=== PATIENT | male | born 1945 | race Caucasian/White ===

== ENCOUNTER 2020-11-04 08:09 | Inpatient (IN) | payer OTHER ==
[~2020-11-04] VITALS: Ht 175.3 cm; Wt 99.4 kg
[~2020-11-04 08:09] MED LIST: FINA5TAB4 PO; IBUP400T22 PO; TAMS0.4C36 PO
[2020-11-04] MEDS ORDERED: PREGABALIN CAPSULE 75 MG CAP PO ONE (08:30)
[2020-11-04] MEDS ORDERED: ACETAMINOPHEN IV 1000 MG/100ML (10MG/ML) IV ONE (08:30)
[2020-11-04] MEDS ORDERED: CELECOXIB 100 MG CAP PO ONE (08:30)
[2020-11-04] MEDS ORDERED: MIDAZOLAM HCL 2MG/2ML 2ml VIAL (1mg/ml) ONE (08:55)
[2020-11-04] MEDS ORDERED: MORPHINE SULF PF 2 MG/2 ML SYRG ONE (08:55)
[2020-11-04] MEDS ORDERED: fentaNYL CITRATE 100 MCG/2 ML VL ONE (08:55)
[2020-11-04] MEDS ORDERED: LIDOCAINE 2% (LOCAL ANESTH.) PF 5ml SDV ONE (08:56)
[2020-11-04] MEDS ORDERED: GLYCOPYRROLATE 0.2 MG/ML 1ML VIAL ONE (08:56)
[2020-11-04] MEDS ORDERED: ONDANSETRON HCL 4 MG/2 ML VIAL ONE (08:56)
[2020-11-04] MEDS ORDERED: PROPOFOL 10 MG/ML 20 ML IV ONE (08:56)
[2020-11-04] MEDS ORDERED: ceFAZolin 1GM/50ML 100 ML IV ONE (09:05)
[2020-11-04] MEDS ORDERED: TRANEXAMIC ACID 20 ML ONE (10:29)
[2020-11-04] MEDS ORDERED: BUPIVACAINE 0.25% INJ 50ML VIAL ONE (10:29)
[2020-11-04] MEDS ORDERED: KETOROLAC TROMETH 30 MG/ML 1ML VIAL ONE (10:31)
[2020-11-04] MEDS ORDERED: VANCOMYCIN HCL 1000 MG VL ONE (10:31)
[2020-11-04] MEDS ORDERED: FAMOTIDINE (10MG/ML) 2ML VL IV ONE (10:45)
[2020-11-04] MEDS ORDERED: TETRACAINE 1% INJ 2 ML VIAL IJ ONE (10:45)
[2020-11-04] MEDS ORDERED: KETAMINE HCL 10 ML ONE (11:31)
[2020-11-04] MEDS ORDERED: MORPHINE SULFATE INJECTION 2 MG/ML SYRG IV PRN (12:45)
[2020-11-04] MEDS ORDERED: NITROGLYCERIN 0.4 MG SL TAB SL PRN (12:45)
[2020-11-04] MEDS ORDERED: HYDROmorphone HCL 2 MG/ML VL IV PRN ×2 (12:45)
[2020-11-04] MEDS ORDERED: ONDANSETRON HCL 4 MG/2 ML VIAL IV PRN ×3 (12:45→13:15)
[2020-11-04] MEDS ORDERED: LACTATED RINGER'S 1,000 ML IV SCH (12:45)
[2020-11-04] MEDS ORDERED: OXYCODONE W/ ACETAMINOPHEN 5/325MG TABLET PO PRN (12:45)
[2020-11-04] MEDS ORDERED: NALOXONE HCL 0.4 MG/ML VIAL IV PRN (13:15)
[2020-11-04] MEDS ORDERED: KETOROLAC TROMETH 30 MG/ML 1ML VIAL IV ONE (13:15)
[2020-11-04] MEDS ORDERED: KETOROLAC TROMETH 30 MG/ML 1ML VIAL IV PRN (13:15)
[2020-11-04] MEDS ORDERED: DexAMETHasone SOD PHOS 10MG/1ML VIAL INJ IV PRN (13:15)
[2020-11-04] MEDS ORDERED: diphenhdrAMINE HCL 50 MG/1 ML VL IV PRN (13:15)
[2020-11-04] MEDS ORDERED: KETOROLAC TROMETH 30 MG/ML 1ML VIAL IV SCH (18:00)
[2020-11-04] MEDS: ceFAZolin 1GM/50ML 50 ML IV SCH (18:45)
[2020-11-04] MEDS: DOCUSATE SOD 100 MG CAP PO SCH ×2 (21:49→21:53)
[2020-11-04] MEDS: TAMSULOSIN HYDROCHLORIDE 0.4 MG CAP PO SCH (21:49)
[2020-11-04 22:00] VITALS: BP 108/66
[2020-11-05] VITALS (15 sets, daily range): BP systolic 90–122; BP diastolic 53–78
[2020-11-05 06:31] LABS: Hematocrit 36.8 % (41.0-53.0); Hemoglobin 13.2 g/dL (13.5-17.5)
[2020-11-05 06:43] LABS: Potassium 4.8 mmol/L (3.5-5.1)
[2020-11-05 07:00] LABS: Albumin 3.2 g/dL (3.4-5.0); BUN/Creatinine Ratio 17.2; Bilirubin, Total 0.9 mg/dL (0.2-1.0); Calcium 8.5 mg/dL (8.5-10.1); Total Protein 6.5 g/dL (6.4-8.2)
[2020-11-05] MEDS ORDERED: ceFAZolin 1GM/50ML 50 ML IV SCH (09:45)
[2020-11-05] MEDS: DOCUSATE SOD 100 MG CAP PO SCH ×2 (09:52→21:39)
[2020-11-05] MEDS: ENOXAPARIN SOD 40 MG/0.4 ML SYRINGE SC SCH (09:52)
[2020-11-05] MEDS: ceFAZolin 1GM/50ML 50 ML IV SCH ×5 (09:53→23:42)
[2020-11-05] MEDS: FINASTERIDE 5 MG TAB PO SCH (17:09)
[2020-11-05] MEDS: TAMSULOSIN HYDROCHLORIDE 0.4 MG CAP PO SCH (21:39)
[2020-11-05] MEDS: KETOROLAC TROMETH 30 MG/ML 1ML VIAL IV PRN (23:42)
[2020-11-06 05:00] VITALS: BP 132/78
[2020-11-06 07:38] LABS: Hematocrit 35.6 % (41.0-53.0); Hemoglobin 12.3 g/dL (13.5-17.5)
[2020-11-06 09:00] VITALS: BP 130/67
[2020-11-06] MEDS: DOCUSATE SOD 100 MG CAP PO SCH (09:40)
[2020-11-06] MEDS: FINASTERIDE 5 MG TAB PO SCH (09:40)
[2020-11-06] MEDS: ENOXAPARIN SOD 40 MG/0.4 ML SYRINGE SC SCH (09:41)
[2020-11-06] MEDS: KETOROLAC TROMETH 30 MG/ML 1ML VIAL IV PRN (09:46)
[2020-11-06 13:00] VITALS: BP 120/73
[2020-11-06 13:38] VITALS: BP 120/73
[2020-11-06] MEDS ORDERED: OXYCODONE W/ ACETAMINOPHEN 5/325MG TABLET PO ONE (15:15)
== END 2020-11-06 15:50 | disposition home health service (06) | DRG 470 ==
LOC: SUR 08:09 → TELE 12:37 → TELE-EAST 18:41
PROVIDERS: ADMIT Orthopaedic Surgery Adult Reconstructive Orthopaedic Surgery; ATTEND Orthopaedic Surgery Adult Reconstructive Orthopaedic Surgery
PROC: 3E0T3BZ Introduction of Anesthetic Agent into Peripheral Nerves and Plexi, Percutaneous Approach (ICD-10-PCS; 2020-11-04)
PROC: 8E0YXBZ Computer Assisted Procedure of Lower Extremity (ICD-10-PCS; 2020-11-04)
PROC: 0SRD0J9 Replacement of Left Knee Joint with Synthetic Substitute, Cemented, Open Approach (ICD-10-PCS; principal; 2020-11-04 10:51)
DX: M17.12 Unilateral primary osteoarthritis, left knee (principal); E66.01 Morbid (severe) obesity due to excess calories; Z68.32 Body mass index [BMI] 32.0-32.9, adult; N40.0 Benign prostatic hyperplasia without lower urinary tract symptoms
CPT/HCPCS: 36415; 73562; 80053; 85014; 85018; 86850; 86900; 86901; 97110; 97116; 97530; C1713; G0378; J0131; J0690; J1885; J2001; J2250; J2405; J2704; J3490

== ENCOUNTER 2021-03-31 08:02 | Inpatient (IN) | payer OTHER ==
[2021-03-31] VITALS (7 sets, daily range): BP systolic 103–128; BP diastolic 62–73
[~2021-03-31] VITALS: Ht 175.3 cm; Wt 112.4 kg
[2021-03-31] MEDS: CELECOXIB 100 MG CAP ONE ×2 (08:25→08:30)
[2021-03-31] MEDS: PREGABALIN CAPSULE 75 MG CAP ONE ×2 (08:26→08:30)
[2021-03-31] MEDS ORDERED: ceFAZolin 1GM/50ML 100 ML IV ONE (08:26)
[2021-03-31] MEDS ORDERED: ACETAMINOPHEN IV 100 ML IV ONE (08:26)
[2021-03-31] MEDS ORDERED: TRANEXAMIC ACID 20 ML ONE (08:30)
[2021-03-31] MEDS: BUPIVACAINE 0.5% MPF INJ 30ML SDV IJ ONE ×2 (08:30→11:15)
[2021-03-31] MEDS: EPINEPHrine HCL 1 MG/1 ML AMP ONE ×2 (08:30→11:15)
[2021-03-31] MEDS: VANCOMYCIN HCL 1000 MG VL ONE ×2 (08:33→11:20)
[2021-03-31] MEDS: KETOROLAC TROMETH 60MG/2ML VIAL ONE ×2 (08:33→11:15)
[2021-03-31] MEDS ORDERED: FAMOTIDINE (10MG/ML) 2ML VL IV ONE (09:38)
[2021-03-31] MEDS ORDERED: BUPIVACAINE 0.5% P/F INJ 10 ML VIAL ONE (09:38)
[2021-03-31] MEDS ORDERED: MORPHINE SULF PF 2 MG/2 ML SYRG ONE (09:40)
[2021-03-31] MEDS ORDERED: MIDAZOLAM HCL 2MG/2ML 2ml VIAL (1mg/ml) ONE (09:41)
[2021-03-31] MEDS ORDERED: ONDANSETRON HCL 4 MG/2 ML VIAL ONE (09:41)
[2021-03-31] MEDS ORDERED: ePHEDrine SULFATE 50 MG/ML AMP ONE (09:41)
[2021-03-31] MEDS ORDERED: PHENYLEPHRINE HCL 10 MG/ML VL ONE (09:41)
[2021-03-31] MEDS ORDERED: KETAMINE HCL 10 ML ONE (09:41)
[2021-03-31] MEDS ORDERED: PROPOFOL 10 MG/ML 20 ML IV ONE (09:41)
[2021-03-31] MEDS ORDERED: fentaNYL CITRATE 100 MCG/2 ML VL ONE (09:41)
[2021-03-31] MEDS ORDERED: GLYCOPYRROLATE 0.2 MG/ML 1ML VIAL ONE (09:41)
[2021-03-31] MEDS: LACTATED RINGER'S 1,000 ML IV SCH (11:45)
[2021-03-31] MEDS ORDERED: HYDROmorphone HCL 2 MG/ML VL IV PRN (11:45)
[2021-03-31] MEDS ORDERED: ceFAZolin 1GM/50ML 50 ML IV SCH (11:45)
[2021-03-31] MEDS ORDERED: ONDANSETRON HCL 4 MG/2 ML VIAL IV PRN ×3 (11:45→12:00)
[2021-03-31] MEDS ORDERED: NITROGLYCERIN 0.4 MG SL TAB SL PRN (11:45)
[2021-03-31] MEDS ORDERED: MORPHINE SULFATE INJECTION 2 MG/ML SYRG IV PRN (11:45)
[2021-03-31] MEDS ORDERED: traMADol HCL 50 MG TAB PO PRN (11:45)
[2021-03-31] MEDS ORDERED: DexAMETHasone SOD PHOS 10MG/1ML VIAL INJ IV PRN (12:00)
[2021-03-31] MEDS ORDERED: KETOROLAC TROMETH 30 MG/ML 1ML VIAL IV SCH (12:00)
[2021-03-31] MEDS ORDERED: NALOXONE HCL 0.4 MG/ML VIAL IV PRN (12:00)
[2021-03-31] MEDS ORDERED: KETOROLAC TROMETH 30 MG/ML 1ML VIAL IV PRN (12:00)
[2021-03-31] MEDS ORDERED: diphenhdrAMINE HCL 50 MG/1 ML VL IV PRN (12:00)
[2021-03-31] MEDS: SODIUM CHLOR 0.9% PF (SALINE LOCK) 10ML VIAL/SYR IV SCH ×2 (14:00→22:14)
[2021-03-31] MEDS: ceFAZolin 1GM/50ML 50 ML IV SCH ×2 (15:15→21:33)
[2021-03-31] MEDS: DOCUSATE SOD 100 MG CAP PO SCH (22:15)
[2021-03-31] MEDS: TAMSULOSIN HYDROCHLORIDE 0.4 MG CAP PO SCH (22:15)
[2021-04-01] VITALS (15 sets, daily range): BP systolic 92–127; BP diastolic 60–81
[2021-04-01] MEDS: LACTATED RINGER'S 1,000 ML IV SCH (03:02)
[2021-04-01] MEDS: ceFAZolin 1GM/50ML 50 ML IV SCH (03:02)
[2021-04-01 06:40] LABS: Hematocrit 39.6 % (41.0-53.0)
[2021-04-01 06:56] LABS: Potassium 4.5 mmol/L (3.5-5.1)
[2021-04-01] MEDS: SODIUM CHLOR 0.9% PF (SALINE LOCK) 10ML VIAL/SYR IV SCH ×3 (06:56→21:34)
[2021-04-01 06:57] LABS: Albumin 2.9 g/dL (3.4-5.0); Calcium 8.3 mg/dL (8.5-10.1)
[2021-04-01 07:01] LABS: BUN/Creatinine Ratio 13.4; Bilirubin, Total 0.6 mg/dL (0.2-1.0); Total Protein 5.7 g/dL (6.4-8.2)
[2021-04-01] MEDS: DOCUSATE SOD 100 MG CAP PO SCH ×2 (08:46→21:32)
[2021-04-01] MEDS: PANTOPRAZOLE 40 MG TAB PO SCH (08:46)
[2021-04-01] MEDS: ENOXAPARIN SOD 40 MG/0.4 ML SYRINGE SC SCH (08:47)
[2021-04-01] MEDS: OXYCODONE W/ ACETAMINOPHEN 5/325MG TABLET PO PRN ×2 (13:39→21:32)
[2021-04-01] MEDS ORDERED: TAMSULOSIN HYDROCHLORIDE 0.4 MG CAP PO SCH (18:00)
[2021-04-01] MEDS: TAMSULOSIN HYDROCHLORIDE 0.4 MG CAP PO SCH (21:33)
[2021-04-02 01:45] VITALS: BP 118/88
[2021-04-02] MEDS: OXYCODONE W/ ACETAMINOPHEN 5/325MG TABLET PO PRN ×3 (03:33→12:51)
[2021-04-02 05:39] VITALS: BP 117/76
[2021-04-02] MEDS: SODIUM CHLOR 0.9% PF (SALINE LOCK) 10ML VIAL/SYR IV SCH (06:20)
[2021-04-02 07:34] LABS: Hematocrit 39.1 % (41.0-53.0)
[2021-04-02 08:00] VITALS: BP 131/72
[2021-04-02] MEDS: DOCUSATE SOD 100 MG CAP PO SCH (08:48)
[2021-04-02] MEDS: ENOXAPARIN SOD 40 MG/0.4 ML SYRINGE SC SCH (08:49)
[2021-04-02] MEDS: PANTOPRAZOLE 40 MG TAB PO SCH (08:49)
[2021-04-02 09:00] VITALS: BP 117/72
[2021-04-02] MEDS ORDERED: FINASTERIDE 5 MG TAB PO SCH (10:00)
[2021-04-02 10:46] VITALS: BP 117/72
[2021-04-02 13:00] VITALS: BP 121/69
== END 2021-04-02 13:06 | disposition home health service (06) | DRG 470 ==
LOC: SUR 08:02 → OVERFLOW 11:35 → TELE-WESTW 17:35
PROVIDERS: ADMIT Orthopaedic Surgery Adult Reconstructive Orthopaedic Surgery; ATTEND Orthopaedic Surgery Adult Reconstructive Orthopaedic Surgery
PROC: 8E0YXBZ Computer Assisted Procedure of Lower Extremity (ICD-10-PCS; 2021-03-31)
PROC: 0SRC069 Replacement of Right Knee Joint with Oxidized Zirconium on Polyethylene Synthetic Substitute, Cemented, Open Approach (ICD-10-PCS; principal; 2021-03-31 09:40)
DX: M17.11 Unilateral primary osteoarthritis, right knee (principal); E66.01 Morbid (severe) obesity due to excess calories; N40.0 Benign prostatic hyperplasia without lower urinary tract symptoms; R00.1 Bradycardia, unspecified; Z68.30 Body mass index [BMI] 30.0-30.9, adult
CPT/HCPCS: 36415; 73562; 80053; 85014; 85018; 86850; 86900; 86901; 97116; 97163; 97530; G0378; J0131; J0171; J0690; J1885; J2250; J2405; J2704; J3490

== ENCOUNTER 2023-04-26 11:55 | Emergency (ER) | payer OTHER ==
[~2023-04-26] VITALS: Ht 175.3 cm; Wt 96.8 kg
[~2023-04-26 11:55] MED LIST changes: +IBUP-1453 PO; -IBUP400T22 PO
[2023-04-26 12:50] LABS: Basophils # (auto) 0.1 10 ^3/uL (0-0.2); Basophils % (auto) 0.8 % (0.0-2.0); Eosinophils # (auto) 0.3 10 ^3/uL (0-0.8); Eosinophils % (auto) 5.2 % (0.0-7.0); Hematocrit 39.6 % (41.0-53.0); Hemoglobin 13.4 g/dL (13.5-17.5); Lymphocytes # (auto) 1.4 10 ^3/uL (0.4-5.4); Lymphocytes % (auto) 21.6 % (10.0-50.0); Mean Corpuscular Hgb Conc. 33.8 g/dL (32.0-36.0); Mean Corpuscular Volume 94.5 fL (80.0-100.0); Monocytes # (auto) 0.6 10 ^3/uL (0-1.3); Monocytes % (auto) 9.1 % (0.0-12.0); Neutrophils # (auto) 4.2 10 ^3/uL (1.6-8.6); Neutrophils % (auto) 63.3 % (37.0-80.0); Nucleated Red Blood Cells % 0.1 %; Red Blood Cells 4.19 10^6/uL (4.5-5.90); Red Cell Distribution Width 13.4 % (11.8-14.3); White Blood Cell 6.6 10^3/uL (4.4-10.8)
[2023-04-26 13:05] LABS: INR 1.03 (0.9-1.15); Partial Thromboplastin Time 27.6 SEC (24.5-34.5); Prothrombin Time 10.8 sec (9.3-11.8)
[2023-04-26 13:06] LABS: Alanine Aminotransferase 20 U/L (7-40); Albumin 4.6 g/dL (3.2-4.8); Alkaline Phosphatase 138 U/L (46-116); Anion Gap 7 (5-15); Aspartate Aminotransferase 21 U/L (13-40); BUN/Creatinine Ratio 11.2 (10.0-20.0); Blood Urea Nitrogen 11 mg/dL (9-23); Carbon Dioxide 27 mmol/L (20-30); Chloride 106 mmol/L (98-107); Glucose 96 mg/dL (74-106); Potassium 4.2 mmol/L (3.5-5.1); Sodium 140 mmol/L (136-145); Total Protein 7.5 g/dL (5.7-8.2)
[2023-04-26] MEDS ORDERED: ENOXAPARIN SOD 100 MG/1 ML SYRINGE SC ONE (16:15)
[2023-04-26] MEDS ORDERED: IOHEXOL 350 MG/ML 100ML IJ ONE (17:27)
[2023-04-26] MEDS ORDERED: APIX5TAB PO (19:43)
[2023-04-26] MEDS ORDERED: HYDR-4902 PO (19:43)
[2023-04-26 20:10] VITALS: BP 135/92; PULSE 75; RESP 18; TEMP 97.8; O2SAT 98
== END 2023-04-26 20:58 | disposition home or self-care (01) ==
LOC: ER 11:55
DX: I82.401 Acute embolism and thrombosis of unspecified deep veins of right lower extremity (principal)
CPT/HCPCS: 36415; 71275; 80053; 85025; 85610; 85730; 93971; 96372; 99285; J1650; Q9967

== ENCOUNTER 2024-08-01 12:03 | Inpatient (IN) | payer OTHER ==
[~2024-08-01] VITALS: Ht 175.3 cm; Wt 90.0 kg
[~2024-08-01 12:03] MED LIST changes: +APIX5TAB PO; +HYDR-4902 PO; -TAMS0.4C36 PO; +TAMS0.4C39 PO
--- NOTE | 2024-08-01 13:10 | ED.PDOC ---
GI ASSESSMENT HPI Comments 79 year old male presents to the ED with chief complaint of N/V. Spouse reports that the patient has been experiencing nausea, vomiting, and mild epigastric abdominal pain for the past 2 weeks. Spouse relays that the patient was taken to [facility] today and he had an ultrasound, XR, and labs performed with an impacted gallstone being noted in the ultrasound. Spouse states that the UC called Dr. Julio and was advised to come into the ED for further evaluation and admission. Patient denies any fever, chills, dizziness, chest pain, or diarrhea. Chief Complaint: Nausea/Vomiting Time Seen by MD: 13:04 Primary Care Provider: Javier Plascencia Notes: Nurses Notes, Medications, Allergies Allergies: Coded Allergies: NO KNOWN ALLERGIES (Unverified , 05/19/12) Home Meds Active Scripts Hydrocodone-Acetaminophen (Hydrocodone Bitartrate/AC 5-325 mg) 1 Tab Tab, 1 TAB PO Q8HPRN PRN, #14 TAB Prov:RITU BALDWIN MD 04/26/23 Apixaban Base (ELIQUIS) 5 Mg Tab, 5 MG PO BID, #120 TAB Take 2 tablets (10mg) twice a day for fisrt 10 days then take 1 tablet (5mg) twice a day Prov:RITU BALDWIN MD 04/26/23 Reported Medications Ibuprofen (Ibuprofen) 400 Mg Tab, 400 MG PO, TAB 10/31/20 Finasteride (Finasteride) 5 Mg Tab, 5 MG PO, TAB 10/31/20 Tamsulosin Hcl (Tamsulosin Hcl) 0.4 Mg Cap, 0.4 MG PO, CAP 10/31/20 Information Source: Patient Mode of Arrival: Ambulatory Timing: Days Duration: Since onset Prehospital treatment: None Quality: Aching Vomitus: Watery Stool: Normal Severity: Moderate Recent: None Recent Hx of: None Pain Location: Epigastric Modifying Factors: Nothing Associated sign and symptoms: Nausea, Vomiting, Abdominal Pain Past Medical History PAST MEDICAL HISTORY: Denies Surgical History: Appendectomy, Hernia Repair Family History Family History: Reviewed,noncontributory to illness Family History (Other): BPH, dementia Social History Smoker: Non-Smoker Alcohol: Denies ETOH Use Drugs: Denies Drug Use Lives In: Home Constitutional: denies: chills, diaphoresis, fatigue, fever, malaise, sweats, weakness, others EENTM: denies: blurred vision, double vision, ear bleeding, ear discharge, ear drainage, ear pain, ear ringing, eye pain, eye redness, hearing loss, mouth pain, mouth swelling, nasal discharge, nose bleeding, nose congestion, nose pain, photophobia, tearing, throat pain, throat swelling, voice changes, others Respiratory: denies: cough, hemoptysis, orthopnea, SOB at rest, shortness of breath, SOB with excertion, stridor, wheezing, others Cardiovascular: denies: chest pain, dizzy spells, diaphoresis, Dyspnea on exertion, edema, irregular heart beat, left arm pain, lightheadedness, palpitations, PND, syncope, others Gastrointestinal: reports: abdominal pain, nausea, vomiting; denies: abdomen distended, blood streaked bowels, constipated, diarrhea, dysphagia, difficulty swallowing, hematemesis, melena, poor appetite, poor fluid intake, rectal bleeding, rectal pain, others Genitourinary: denies: burning, dysuria, flank pain, frequency, hematuria, incontinence, penile discharge, penile sore, pain, testicle pain, testicle swelling, urgency, others Neurological: denies: dizziness, fainting, headache, left sided numbness, left sided weakness, numbness, paresthesia, pre-existing deficit, right sided numbness, right sided weakness, seizure, speech problems, tingling, tremors, weakness, others Musculoskeletal: denies: back pain, gout, joint pain, joint swelling, muscle pain, muscle stiffness, neck pain, others Integumetry: denies: bruises, change in color, change in hair/nails, dryness, laceration, lesions, lumps, rash, wounds, others Allergic/Immunocompromised: denies: Difficulty Healing, Frequent Infections, Hives, Itching, others Hematologic/Lymphatic: denies: anemia, blood clots, easy bleeding, easy brui sing, swollen glands, others Endocrine: denies: excessive hunger, excessive sweating, excessive thirst, ex cessive urination, flushing, intolerance to cold, intolerance to heat, unexplained weight gain, unexplained weight loss, others Psychiatric: denies: anxiety, bipolar disorder, depression, hopeless, panic disorder, schizophrenia, sleepless, suicidal, others All Other Systems: Reviewed and Negative Physical Exam General Appearance: Moderate Distress, Normal HEENT: Normal ENT Inspection, PERRL/EOMI Neck: Full Range of Motion, Non-Tender, Normal, Normal Inspection Respiratory: Chest Non-Tender, Lungs Clear, No Accessory Muscle Use, No Respiratory Distress, Normal Breath Sounds Cardiovascular: No Edema, No JVD, No Murmur, No Gallop, Normal Peripheral Pulses, Regular Rate/Rhythm Breast Exam: Deferred Gastrointestinal: No Organomegaly, Non Tender, No Pulsatile Mass, Normal Bowel Sounds, Soft Genitalia: Deferred Pelvic: Deferred Rectal: Deferred Extremities: No calf tenderness, Normal capillary refill, Normal inspection, Normal range of motion, Non-tender, No pedal edema Musculoskeletal : Apperance: Normal Neurologic: Alert, lead sustainability specialist II-XII nml as Tested, No Motor Deficits, Normal Affect, Normal Mood, No Sensory Deficits Cerebellar Function: NOT DONE Reflexes: NOT DONE Skin: Dry, Normal Color, Warm Peripheral Pulses: 3+ Radial (R), 3+ Radial (L) Lymphatic: No Adenopathy Was a procedure done? Was a procedure done?: No GI differential Dx Differential Diagnosis: Constipation, Diverticular disease, Esophagitis, Gastritis/PUD, Gastroenteritis X-Ray, Labs, Meds, VS Vital Signs Date Time Temp Pulse Resp B/P (MAP) Pulse Ox O2 Delivery O2 Flow Rate FiO2 08/01/24 12:30 97.1 59 18 152/90 (110) 99 97.1 Lab Test 08/01/24 13:26 Range/Units White Blood Count 13.6 H 4.4-10.8 10^3/uL Red Blood Count 4.50 4.5-5.90 10^6/uL Hemoglobin 14.4 13.5-17.5 g/dL Hematocrit 43.0 41.0-53.0 % Mean Corpuscular Volume 95.5 80.0-100.0 fL Mean Corpuscular Hemoglobin 31.9 28.0-32.0 pg Mean Corpuscular Hemoglobin Concent 33.4 32.0-36.0 g/dL Red Cell Distribution Width 14.2 11.8-14.3 % Platelet Count 358 140-450 10^3/uL Mean Platelet Volume 8.0 6.9-10.8 fL Neutrophils (%) (Auto) 83.5 H 37.0-80.0 % Lymphocytes (%) (Auto) 11.0 10.0-50.0 % Monocytes (%) (Auto) 5.0 0.0-12.0 % Eosinophils (%) (Auto) 0.2 0.0-7.0 % Basophils (%) (Auto) 0.3 0.0-2.0 % Neutrophils # (Auto) 11.3 H 1.6-8.6 10 ^3/uL Lymphocytes # (Auto) 1.5 0.4-5.4 10 ^3/uL Monocytes # (Auto) 0.7 0-1.3 10 ^3/uL Eosinophils # (Auto) 0 0-0.8 10 ^3/uL Basophils # (Auto) 0 0-0.2 10 ^3/uL Nucleated Red Blood Cells 0.0 % Sodium Level 146 H 136-145 mmol/L Potassium Level 4.2 3.5-5.1 mmol/L Chloride Level 108 H 98-107 mmol/L Carbon Dioxide Level 32 H 20-31 mmol/L Anion Gap 6 5-15 Blood Urea Nitrogen 12 9-23 mg/dL Creatinine 0.94 0.700-1.30 mg/dL Glomerular Filtration Rate Calc 83 >90 mL/min BUN/Creatinine Ratio 12.8 10.0-20.0 Serum Glucose 111 H 74-106 mg/dL Calcium Level 10.3 8.7-10.4 mg/dL Patient alert. Complaining of nausea vomiting. WBC elevated. Hemoglobin within normal limits. Sodium level elevated. Blood pressure slightly elevated. Establish intravenous access. Referred by his primary care physician. Possible gallbladder disease. Explained to the patient. Was given Rocephin. Reviewed his visit to urgent care. Explained to the patient. Continue cardiac monitoring Time of 1ST Reevaluation: 14:04 Reevaluation 1ST: Unchanged Patient Education/Counseling: Diagnosis, Treatment Family Education/Counseling: Diagnosis, Treatment Additional Information Previous visit documents reviewed: 04/26/23 for right leg DVT The following tests were ordered, and results were reviewed by me: CBC, CMP Additional Information was gathered from interviewing the following independent historians: Spouse I reviewed and agreed with the following test results read by other providers: None I discussed treatment and results with medical personnel and: Patient and spouse Departure 1 Departure Time of Disposition: 14:51 Impression: Primary Impression: Gallbladder disease Disposition: ADMITTED INPATIENT Admit to: Med Surg Condition: Guarded Critical Care Note Critical Care Time?: No Stability Stability form required: No Heart Score Heart Score: Heart Score Response (Comments) Value History N/A 0 EKG N/A 0 Age N/A 0 Risk Factors N/A 0 Troponin N/A 0 Total 0 I personally scribed for JOB MENDOZA MD ([email or web address]) on 08/01/24 at 13:10. Electronically submitted by Otto Garza ([email or web address]). JOB MENDOZA MD Aug 01, 2024 13:10
[2024-08-01 13:54] LABS: Basophils # (auto) 0 10 ^3/uL (0-0.2); Basophils % (auto) 0.3 % (0.0-2.0); Eosinophils # (auto) 0 10 ^3/uL (0-0.8); Eosinophils % (auto) 0.2 % (0.0-7.0); Hemoglobin 14.4 g/dL (13.5-17.5); Lymphocytes # (auto) 1.5 10 ^3/uL (0.4-5.4); Mean Corpuscular Hemoglobin 31.9 pg (28.0-32.0); Mean Corpuscular Hgb Conc. 33.4 g/dL (32.0-36.0); Mean Corpuscular Volume 95.5 fL (80.0-100.0); Monocytes # (auto) 0.7 10 ^3/uL (0-1.3); Neutrophils # (auto) 11.3 10 ^3/uL (1.6-8.6); Neutrophils % (auto) 83.5 % (37.0-80.0); Platelet Count (auto) 358 10^3/uL (140-450); Red Cell Distribution Width 14.2 % (11.8-14.3); White Blood Cell 13.6 10^3/uL (4.4-10.8)
[2024-08-01 14:08] LABS: Potassium 4.2 mmol/L (3.5-5.1)
[2024-08-01 14:09] LABS: Anion Gap 6 (5-15)
[2024-08-01 14:10] LABS: Calcium 10.3 mg/dL (8.7-10.4)
[2024-08-01 14:15] LABS: BUN/Creatinine Ratio 12.8 (10.0-20.0); Blood Urea Nitrogen 12 mg/dL (9-23)
[2024-08-01 14:18] LABS: Carbon Dioxide 32 mmol/L (20-31); Chloride 108 mmol/L (98-107); Glucose 111 mg/dL (74-106); Sodium 146 mmol/L (136-145)
--- NOTE | 2024-08-01 15:33 | DVH ---
Procedure: US GALLBLADDER Study Date and Requested Time: 08/01/2024 03:01 PM History: jez Comparison: None Technique: Multiple high resolution nuno-scale images obtained of the right upper quadrant of the abd omen with color Doppler for evaluation of blood flow and vascularity as indicated. Findings: Liver normal in size, measuring 16 cm in length, with homogenous echotexture and normal contours. No evidence of focal hepatic lesions, intrahepatic or extrahepatic ductal dilatation. Common bile duct m easures 0.4 cm in diameter. Cholelithiasis with mild nonspecific gallbladder wall thickening at 0.4 cm. No pericholecystic free fluid. Negative sonographic Rivera's sign. Pancreas obscured by bowel gas. Right kidney measures 9.5 cm in length, with normal contours, echotexture, and cortical thickness. No evidence of hydronephrosis, calculi, cystic or solid renal lesions. Partially visualized inferior vena cava unremarkable. Impression: Cholelithiasis with nonspecific gallbladder wall thickening and negative sonographic rivera's sign. Findings are not definitive for acute cholecystitis. If there is concern for acute cholecystitis, hep atobiliary scan may be considered for further evaluation. Pancreas is obscured by bowel gas.
[2024-08-01 16:12] LABS: Bilirubin, Total 1.2 mg/dL (0.2-1.0)
[2024-08-01] MEDS ORDERED: ACETAMINOPHEN 325 MG TAB PO PRN (19:15)
[2024-08-01] MEDS: SODIUM CHLORIDE 0.9% 1,000 ML IV SCH (19:15)
[2024-08-01] MEDS ORDERED: ONDANSETRON HCL 4 MG/2 ML VIAL IV PRN (19:15)
[2024-08-01] MEDS: SODIUM CHLORIDE 0.9% 1,000 ML IV ONE (19:56)
[2024-08-01] MEDS: cefTRIAXone 1GM/50ML D5W 50 ML IV ONE (19:56)
[2024-08-01 20:48] VITALS: RESP 16; O2SAT 96
[2024-08-01] MEDS: ENOXAPARIN SOD 100 MG/1 ML SYRINGE SC SCH (22:00)
[2024-08-02] VITALS (7 sets, daily range): BP systolic 114–145; BP diastolic 64–72; PULSE 64–74; RESP 16–19; TEMP 97.6–98.2; O2SAT 95–100
[2024-08-02 01:27] LABS: Urine Bacteria None Seen /hpf (None Seen)
[2024-08-02 01:45] LABS: Urine Blood Negative /uL (Negative); Urine Clarity Clear (Clear); Urine Color Yellow (Yellow); Urine Mucus FEW (None Seen); Urine Protein, UAD TRACE (Negative); Urine Specific Gravity 1.024 (1.001-1.035); Urine Squamous Epithelial Cell FEW /hpf (<5); Urine Urobilinogen Normal (Negative); Urine WBC 4 /HPF (0-3); Urine pH 5.5 (5.0-9.0)
--- NOTE | 2024-08-02 04:54 | DVHHP2 ---
SHARITA REICH DIRECT SALES REPRESENTATIVE 08/02/24 0454: History of Present Illness Reason for Visit: Abdominal, nausea, vomiting History of Present Illness 79-year-old male presents with complaints of abdominal pain, nausea, vomiting over the previous 2 weeks. Patient endorsed he was seen at [facility] urgent care and told he had gallstones. Was sent in to the emergency department for further evaluation. At this time patient states symptoms have improved denies fevers, chills, shortness of breath, chest pain, hematemesis, hematochezia, melena. Hepatobiliary: Cholelithiasis Smoke: No ALCOHOL: none Drugs: None Lives: with Family Review of Systems Constitutional: No: Fever, Chills, Sweats, Weakness, Malaise, Other Eyes: No: Pain, Vision change, Conjunctivae inflammation, Eyelid inflammation, Other, Redness ENT: No: Ear pain, Ear discharge, Nose pain, Nose discharge, Nose congestion, Mouth pain, Mouth swelling, Throat pain, Throat swelling, Other Respiratory: No: Cough, Dry, Shortness of breath, SOB with excertion, Wheezing, Hemoptysis, Pleuritic Pain, Sputum, Wheezing, Other Cardiovascular: No: Chest Pain, Palpitations, Orthopnea, Paroxysmal Noc. Dyspnea, Edema, Lt Headedness, Other Gastrointestinal: Nausea, Vomiting, Abdominal Pain; No: Diarrhea, Constipation, Melena, Hematochezia, Other Genitourinary: No Dysuria, No Frequency, No Incontinence, No Hematuria, No Retention, No Other Musculoskeletal: No: other, neck pain, shoulder pain, arm pain, back pain, hand pain, leg pain, foot pain Skin: No: Rash, Lesions, Jaundice, Bruising, Other Neurological: No: Weakness, Numbness, Incoordination, Change in speech, Confusion, Seizures, Other Allergies: Coded Allergies: NO KNOWN ALLERGIES (Unverified , 05/19/12) Medications Current Medications Medications Dose Ordered Sig/Marilyn Route Start Time Stop Time Status Last Admin Dose Admin Sodium Chloride 1,000 ml @ 120 mls/hr Q8H20M IV 08/01/24 19:15 Acetaminophen/ Hydrocodone Bitart 1 tab Q4HP PRN PO 08/01/24 19:15 Ondansetron HCl 4 mg Q4HP PRN IV 08/01/24 19:15 Acetaminophen 650 mg Q6HP PRN PO 08/01/24 19:15 Morphine Sulfate 2 mg Q4HPRN PRN IV 08/01/24 19:15 Enoxaparin Sodium 90 mg Q12HR SC 08/01/24 22:00 Ceftriaxone Sodium 50 ml @ 100 mls/hr DAILY@09 IV 08/02/24 09:00 Exam Vital Signs Vital Signs Date Time Temp Pulse Resp B/P (MAP) Pulse Ox O2 Delivery O2 Flow Rate FiO2 08/02/24 02:55 74 18 100 Room Air* 0 21 08/02/24 00:41 137/82 (100) 08/01/24 19:50 97.9 97.9 General Appearance: Alert, Oriented X3, Cooperative, mild distress HEENT: Atraumatic, PERRLA, EOMI Respiratory: Clear to auscultation, Normal air movement Cardiovascular: Regular rate, Normal S1, Normal S2 Abdominal: Normal bowel sounds, Soft, No tenderness Extremities: No cyanosis, No edema Skin: No rashes, No breakdown Neuro: Normal speech, Strength at 5/5 X4 ext Psych/Mental Status: Mental status NL, Mood NL Labs/Xrays Labs Test 08/02/24 01:00 08/01/24 13:26 Range/Units Urine Color Yellow Yellow Urine Clarity Clear Clear Urine pH 5.5 5.0-9.0 Urine Specific [place] 1.024 1.001-1.035 Urine Protein Trace H Negative Urine Ketones Negative Negative Urine Blood Negative Negative /uL Urine Nitrite Negative Negative Urine Bilirubin Negative Negative Urine Urobilinogen Normal Negative mg/dL Urine Leukocyte Esterase Negative Negative /uL Urine RBC 2 0 - 3 /hpf Urine Microscopic WBC 4 H 0-3 /HPF Urine Squamous Epithelial Cells Few <5 /hpf Urine Bacteria None seen None Seen /hpf Urine Mucus Few None Seen Urine Glucose Normal Normal mg/dL White Blood Count 13.6 H 4.4-10.8 10^3/uL Red Blood Count 4.50 4.5-5.90 10^6/uL Hemoglobin 14.4 13.5-17.5 g/dL Hematocrit 43.0 41.0-53.0 % Mean Corpuscular Volume 95.5 80.0-100.0 fL Mean Corpuscular Hemoglobin 31.9 28.0-32.0 pg Mean Corpuscular Hemoglobin Concent 33.4 32.0-36.0 g/dL Red Cell Distribution Width 14.2 11.8-14.3 % Platelet Count 358 140-450 10^3/uL Mean Platelet Volume 8.0 6.9-10.8 fL Neutrophils (%) (Auto) 83.5 H 37.0-80.0 % Lymphocytes (%) (Auto) 11.0 10.0-50.0 % Monocytes (%) (Auto) 5.0 0.0-12.0 % Eosinophils (%) (Auto) 0.2 0.0-7.0 % Basophils (%) (Auto) 0.3 0.0-2.0 % Neutrophils # (Auto) 11.3 H 1.6-8.6 10 ^3/uL Lymphocytes # (Auto) 1.5 0.4-5.4 10 ^3/uL Monocytes # (Auto) 0.7 0-1.3 10 ^3/uL Eosinophils # (Auto) 0 0-0.8 10 ^3/uL Basophils # (Auto) 0 0-0.2 10 ^3/uL Nucleated Red Blood Cells 0.0 % Sodium Level 146 H 136-145 mmol/L Potassium Level 4.2 3.5-5.1 mmol/L Chloride Level 108 H 98-107 mmol/L Carbon Dioxide Level 32 H 20-31 mmol/L Anion Gap 6 5-15 Blood Urea Nitrogen 12 9-23 mg/dL Creatinine 0.94 0.700-1.30 mg/dL Glomerular Filtration Rate Calc 83 >90 mL/min BUN/Creatinine Ratio 12.8 10.0-20.0 Serum Glucose 111 H 74-106 mg/dL Calcium Level 10.3 8.7-10.4 mg/dL Total Bilirubin 1.2 H 0.2-1.0 mg/dL Aspartate Amino Transferase (AST) 314 H 13-40 U/L Alanine Aminotransferase (ALT) 317 H 7-40 U/L Assessment/Plan Assessment/Plan Cholelithiasis Abnormal LFTs Plan Admit medical floor Consult general surgeon. 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 Symptomatic cholelithiasis ruled out acute cholecystitis 2. Transaminitis 3. History of DVT on Eliquis 4. BPH -clear liquid diet as tolerated advanced to full liquid, follow up General surgery Discharge plan with the outpatient follow up with General surgery for elective cholecystectomy. SHARITA REICH NP Aug 02, 2024 04:54 SULMA HOOKER MD Aug 02, 2024 16:47
[2024-08-02 06:25] LABS: Basophils # (auto) 0 10 ^3/uL (0-0.2); Basophils % (auto) 0.2 % (0.0-2.0); Eosinophils # (auto) 0.1 10 ^3/uL (0-0.8); Eosinophils % (auto) 0.7 % (0.0-7.0); Hematocrit 39.8 % (41.0-53.0); Hemoglobin 13.6 g/dL (13.5-17.5); Lymphocytes # (auto) 1.5 10 ^3/uL (0.4-5.4); Lymphocytes % (auto) 11.9 % (10.0-50.0); Mean Corpuscular Hemoglobin 32.4 pg (28.0-32.0); Mean Corpuscular Hgb Conc. 34.2 g/dL (32.0-36.0); Mean Corpuscular Volume 94.6 fL (80.0-100.0); Monocytes # (auto) 0.9 10 ^3/uL (0-1.3); Neutrophils # (auto) 10.4 10 ^3/uL (1.6-8.6); Neutrophils % (auto) 80.2 % (37.0-80.0); Platelet Count (auto) 305 10^3/uL (140-450); Red Cell Distribution Width 13.9 % (11.8-14.3)
[2024-08-02 06:43] LABS: Albumin 4.2 g/dL (3.2-4.8); Anion Gap 8 (5-15); BUN/Creatinine Ratio 16.5 (10.0-20.0); Blood Urea Nitrogen 13 mg/dL (9-23); Calcium 10.1 mg/dL (8.7-10.4); Carbon Dioxide 29 mmol/L (20-31); Glucose 90 mg/dL (74-106); Potassium 3.7 mmol/L (3.5-5.1); Total Protein 6.7 g/dL (5.7-8.2)
[2024-08-02 06:49] LABS: Alanine Aminotransferase 217 U/L (7-40); Alkaline Phosphatase 158 U/L (46-116); Aspartate Aminotransferase 150 U/L (13-40); Bilirubin, Total 1.3 mg/dL (0.2-1.0); Chloride 109 mmol/L (98-107); Sodium 146 mmol/L (136-145)
[2024-08-02] MEDS: cefTRIAXone 1GM/50ML D5W 50 ML IV SCH (08:58)
--- NOTE | 2024-08-02 09:03 | DVH ---
MRI Abdomen, without IV Contrast Exam Date: 08/02/2024 08:17 AM Comparison: Ultrasound dated 08/01/2024 History: Rule out choledocholithiasis Technique: Multisequence multiplanar MRI images were obtained of the abomen. MRCP including 3D SPACE, Radial 2D slabs and SPACE 3D MIP images Findings: Dependent atelectasis. Liver: The liver is normal in size without focal lesions. Normal liver contour. Spleen: Unremarkable. Pancreas: There are two punctate 0.1 cm cystic lesions are present in the pancreatic tail. Gallbladder and ducts: Cholelithiasis. Mild gallbladder wall thickening and mild pericholecystic chiki ma. The cystic duct, right and left hepatic ducts, common hepatic duct, and common bile ducts are u nremarkable. The pancreatic duct is within normal limits. Adrenal glands: Unremarkable. Kidneys: Normal enhancement without suspicious lesions or hydronephrosis. Visualized bowel: Grossly unremarkable. Vasculature: Unremarkable. Lymphadenopathy: No evidence for lymphadenopathy. Ascites: Absent. Musculoskeletal: Bone marrow signal is normal. Scoliosis. IMPRESSION: No choledocholithiasis. Cholelithiasis, mild gallbladder wall thickening and mild pericholecystic edema. 2 punctate 0.1 cm cystic lesions in the pancreatic tail. Differential considerations could include ti ny IPMN versus simple cysts. According to 2017 ACR incidental findings committee, pancreatic cystic lesions that are less than 1.5 cm in size found incidentally on patients greater than 65 years of age should be imaged with contras t-enhanced MRI for pancreas protocol or CT every two years for 5 years until stability of 10 years is confirmed. If after this time the cystic lesion demonstrates stability, no further follow-up is mario mmended.
[2024-08-02] MEDS: PIPERACILLIN-TAZOB 3.375GM 100 ML IV SCH (12:33)
--- NOTE | 2024-08-02 15:22 | DVHINCON2 ---
Date of service: Aug 02, 2024 History of Present Illness 79 yo male who presents to hospital after he was evaluated at urgent care. found to have gallstones, intermittent n/v. mild abd pain. found to have choleli thiasis, no evidence of cholecystitis. Past Medical History denies Past Surgical History ventral hernia w mesh, over 30 yrs ago Family History: Patient reports no known family medical history. Allergies: Coded Allergies: NO KNOWN ALLERGIES (Unverified , 05/19/12) Home Meds Active Scripts Apixaban Base (ELIQUIS) 5 Mg Tab, 5 MG PO BID, #120 TAB Take 2 tablets (10mg) twice a day for fisrt 10 days then take 1 tablet (5mg) twice a day Prov:RITU BALDWIN MD 04/26/23 Reported Medications Finasteride (Finasteride) 5 Mg Tab, 5 MG PO, TAB 10/31/20 Tamsulosin Hcl (Tamsulosin Hcl) 0.4 Mg Cap, 0.4 MG PO, CAP 10/31/20 Current Medications Current Medications Medications (Trade) Dose Ordered Sig/Marilyn Route PRN Reason Start Time Stop Time Status Last Admin Sodium Chloride 1,000 ml @ 120 mls/hr Q8H20M IV 08/01/24 19:15 08/02/24 03:35 Acetaminophen/ Hydrocodone Bitart ([place] 5/325MG Tab) 1 tab Q4HP PRN PO MODERATE PAIN (4-6 PAIN SCALE) 08/01/24 19:15 Ondansetron HCl (Zofran) 4 mg Q4HP PRN IV NAUSEA / VOMITING 08/01/24 19:15 Acetaminophen (Tylenol Tablet) 650 mg Q6HP PRN PO PAIN SCALE 1-3 OR TEMP>100.4 08/01/24 19:15 Morphine Sulfate 2 mg Q4HPRN PRN IV SEVERE PAIN (7-10 PAIN SCALE) 08/01/24 19:15 Enoxaparin Sodium (Lovenox) 90 mg Q12HR SC 08/01/24 22:00 Ceftriaxone Sodium 50 ml @ 100 mls/hr DAILY@09 IV 08/02/24 09:00 08/02/24 11:38 DC 08/02/24 08:58 Piperacillin Sod/ Tazobactam Sod 100 ml @ 25 mls/hr Q8H IV 08/02/24 12:30 08/02/24 12:33 Review of Systems neg unless mentioned in hpi Vital Signs Vital Signs Date Time Temp Pulse Resp B/P (MAP) Pulse Ox O2 Delivery O2 Flow Rate FiO2 08/02/24 13:00 97.8 70 18 145/72 (96) 98 97.8 08/02/24 08:00 Room Air* 0 21 Physical Exam gen; aaox3,nad cvs; [id number] lung; normal effort abd; soft nd nttp no r r g, midline scar present ext no edema Labs/Diagnostic Data Labs Test 08/02/24 05:44 08/02/24 01:00 Range/Units White Blood Count 13.0 H 4.4-10.8 10^3/uL Red Blood Count 4.20 L 4.5-5.90 10^6/uL Hemoglobin 13.6 13.5-17.5 g/dL Hematocrit 39.8 L 41.0-53.0 % Mean Corpuscular Volume 94.6 80.0-100.0 fL Mean Corpuscular Hemoglobin 32.4 H 28.0-32.0 pg Mean Corpuscular Hemoglobin Concent 34.2 32.0-36.0 g/dL Red Cell Distribution Width 13.9 11.8-14.3 % Platelet Count 305 140-450 10^3/uL Mean Platelet Volume 8.0 6.9-10.8 fL Neutrophils (%) (Auto) 80.2 H 37.0-80.0 % Lymphocytes (%) (Auto) 11.9 10.0-50.0 % Monocytes (%) (Auto) 7.0 0.0-12.0 % Eosinophils (%) (Auto) 0.7 0.0-7.0 % Basophils (%) (Auto) 0.2 0.0-2.0 % Neutrophils # (Auto) 10.4 H 1.6-8.6 10 ^3/uL Lymphocytes # (Auto) 1.5 0.4-5.4 10 ^3/uL Monocytes # (Auto) 0.9 0-1.3 10 ^3/uL Eosinophils # (Auto) 0.1 0-0.8 10 ^3/uL Basophils # (Auto) 0 0-0.2 10 ^3/uL Nucleated Red Blood Cells 0.0 % Sodium Level 146 H 136-145 mmol/L Potassium Level 3.7 3.5-5.1 mmol/L Chloride Level 109 H 98-107 mmol/L Carbon Dioxide Level 29 20-31 mmol/L Anion Gap 8 5-15 Blood Urea Nitrogen 13 9-23 mg/dL Creatinine 0.79 0.700-1.30 mg/dL Glomerular Filtration Rate Calc 91 >90 mL/min BUN/Creatinine Ratio 16.5 10.0-20.0 Serum Glucose 90 74-106 mg/dL Calcium Level 10.1 8.7-10.4 mg/dL Total Bilirubin 1.3 H 0.2-1.0 mg/dL Aspartate Amino Transferase (AST) 150 H 13-40 U/L Alanine Aminotransferase (ALT) 217 H 7-40 U/L Alkaline Phosphatase 158 H 46-116 U/L Total Protein 6.7 5.7-8.2 g/dL Albumin 4.2 3.2-4.8 g/dL Urine Color Yellow Yellow Urine Clarity Clear Clear Urine pH 5.5 5.0-9.0 Urine Specific [place] 1.024 1.001-1.035 Urine Protein Trace H Negative Urine Ketones Negative Negative Urine Blood Negative Negative /uL Urine Nitrite Negative Negative Urine Bilirubin Negative Negative Urine Urobilinogen Normal Negative mg/dL Urine Leukocyte Esterase Negative Negative /uL Urine RBC 2 0 - 3 /hpf Urine Microscopic WBC 4 H 0-3 /HPF Urine Squamous Epithelial Cells Few <5 /hpf Urine Bacteria None seen None Seen /hpf Urine Mucus Few None Seen Urine Glucose Normal Normal mg/dL Assessment 79 yo male with cholelithiasis Plan/Recommendation trial of full liquids abx if tolerates ok to dc and fu in offfice if pain persists, may need inpt surgery Plan discussed with: Patient LENNY HOUSE MD Aug 02, 2024 15:22
[2024-08-03] VITALS (8 sets, daily range): BP systolic 116–142; BP diastolic 64–80; PULSE 54–65; RESP 16–20; TEMP 97.4–98.1; O2SAT 94–99
[2024-08-03] MEDS: APIXABAN 5 MG TAB PO SCH (09:07)
--- NOTE | 2024-08-03 16:47 | DVHPN2 ---
Subjective Tonight events noted. Patient currently not tolerating diet, HIDA scan has been ordered Reviewed: Care Plan Changes from previous H/P or p: Changes Eyes: No Pain, No Vision change, No Conjunctivae inflammation, No Eyelid inflammation, No Other, No Redness ENT: No Ear pain, No Ear discharge, No Nose pain, No Nose discharge, No Nose congestion, No Mouth pain, No Mouth swelling, No Throat pain, No Throat swelling, No Other Cardiovascular: No Chest Pain, No Palpitations, No Orthopnea, No Paroxysmal Noc. Dyspnea, No Edema, No Lt Headedness, No Other Respiratory: No Cough, No Dry, No Shortness of breath, No SOB with excertion, No Wheezing, No Hemoptysis, No Pleuritic Pain, No Sputum, No Other Gastrointestinal: Nausea, Vomiting, Abdominal Pain; No Diarrhea, No Constipation, No Melena, No Hematochezia, No Other Genitourinary: No Dysuria, No Frequency, No Incontinence, No Hematuria, No Retention, No Other Musculoskeletal: No other, No neck pain, No shoulder pain, No arm pain, No back pain, No hand pain, No leg pain, No foot pain Skin: No Rash, No Lesions, No Jaundice, No Bruising, No Other Objective Vitals Vital Signs Date Time Temp Pulse Resp B/P (MAP) Pulse Ox O2 Delivery O2 Flow Rate FiO2 08/03/24 13:00 97.6 59 18 140/68 (92) 97 97.6 08/03/24 08:00 Room Air* 0 21 Intake/Output Intake and Output 08/03/24 07:00 Intake Total 850 ml Output Total 600 ml Balance 250 ml Intake Oral 700 ml IV Total 150 ml Output Urine Total 600 ml Exam HEENT pupils are reactive Neck is supple CV is S1-S2 regular rate and rhythm Respiratory bilateral clear GI positive bowel sounds soft mildly tender in the right upper quadrant with minimal guarding no rigidity extremity no edema [employer] no motor deficits Medications Current Medications Medications Dose Ordered Sig/Marilyn Route Start Time Stop Time Status Last Admin Dose Admin Sodium Chloride 1,000 ml @ 120 mls/hr Q8H20M IV 08/01/24 19:15 08/02/24 21:57 120 MLS/HR Acetaminophen/ Hydrocodone Bitart 1 tab Q4HP PRN PO 08/01/24 19:15 Ondansetron HCl 4 mg Q4HP PRN IV 08/01/24 19:15 Acetaminophen 650 mg Q6HP PRN PO 08/01/24 19:15 Morphine Sulfate 2 mg Q4HPRN PRN IV 08/01/24 19:15 Piperacillin Sod/ Tazobactam Sod 100 ml @ 25 mls/hr Q8H IV 08/02/24 12:30 08/03/24 12:38 25 MLS/HR Apixaban 5 mg BIDPC PO 08/03/24 09:00 08/03/24 09:07 5 MG Laboratory Results Laboratory Tests 08/02/24 05:44 Urinalysis Test 08/02/24 01:00 Urine Color Yellow (Yellow) Urine Clarity Clear (Clear) Urine pH 5.5 (5.0-9.0) Urine Specific [place] 1.024 (1.001-1.035) Urine Protein Trace (Negative) H Urine Ketones Negative (Negative) Urine Blood Negative /uL (Negative) Urine Nitrite Negative (Negative) Urine Bilirubin Negative (Negative) Urine Urobilinogen Normal mg/dL (Negative) Urine Leukocyte Esterase Negative /uL (Negative) Urine RBC 2 /hpf (0 - 3) Urine Microscopic WBC 4 /HPF (0-3) H Urine Squamous Epithelial Cells Few /hpf (<5) Urine Bacteria None seen /hpf (None Seen) Urine Mucus Few (None Seen) Urine Glucose Normal mg/dL (Normal) Assessment/Plan Assessment/Plan 79-year-old male with a 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 Symptomatic cholelithiasis ruled out acute cholecystitis 2. Transaminitis 3. History of recurrent DVT right lower extremity 4. BPH -continue Eliquis, start therapeutic Lovenox, risks benefits and alternatives of therapeutic Lovenox including life-threatening bleeding disorder deficits. With the patient in detail who understand verbalized understanding and agreeable to plan. -HIDA scan, general surgery follow up Plan discussed with: Patient My Orders Orders - SULMA HOOKER MD Procedure Category Date Status Time Apixaban (Eliquis) PHA 08/03/24 In Process 09:00 Comprehensive LAB 08/03/24 Logged Metabolic Panel 16:43 Enoxaparin Sodium PHA 08/03/24 Transmitted (Lovenox) 22:00 Date of Service: Aug 03, 2024 Billing Provider: SULMA HOOKER MD Common Visit Codes: NOT BILLABLE SULMA HOOKER MD Aug 03, 2024 16:47
[2024-08-03 18:45] LABS: Albumin 3.8 g/dL (3.2-4.8); Anion Gap 6 (5-15); BUN/Creatinine Ratio 10.5 (10.0-20.0); Blood Urea Nitrogen 10 mg/dL (9-23); Calcium 9.3 mg/dL (8.7-10.4); Carbon Dioxide 28 mmol/L (20-31); Sodium 142 mmol/L (136-145); Total Protein 6.2 g/dL (5.7-8.2)
[2024-08-03 19:08] LABS: Alanine Aminotransferase 117 U/L (7-40); Alkaline Phosphatase 151 U/L (46-116); Aspartate Aminotransferase 55 U/L (13-40); Bilirubin, Total 1.3 mg/dL (0.2-1.0); Chloride 108 mmol/L (98-107); Glucose 107 mg/dL (74-106)
[2024-08-03] MEDS: ENOXAPARIN SOD 100 MG/1 ML SYRINGE SC SCH (22:07)
[2024-08-04] VITALS (7 sets, daily range): BP systolic 122–145; BP diastolic 72–87; PULSE 50–60; RESP 16–19; TEMP 97.3–98; O2SAT 96–98
--- NOTE | 2024-08-04 10:04 | DVH ---
Procedure: NM NM HIDA SCAN Exam Date: 08/04/2024 07:56 AM Clinical History: T.O FROM [facility] Comparison Study: MRCP dated 08/02/2024 Nuclear Medicine Hepatobiliary Scan. Technique: Following the intravenous administration of 4.2 mCi of technetium 99m labeled Choletec multiple plana r abdominal planar images were obtained in anterior projection in 5 minute intervals for45 minutes . Right lateral images were obtained at 45 minutes after injection. Findings: The liver appears grossly normal in size. There is no abnormal persistence of the cardiac or blood po ol activity. There is prompt visualization of the gallbladder and excretion of activity into the smal l bowel. Impression: Unremarkable hepatobiliary study without evidence of acute cholecystitis.
--- NOTE | 2024-08-04 12:19 | DVH ---
Bilateral lower extremity venous duplex Clinical History: hx dvt Comparison: US RT LOWER DVT on DOS: 04/26/23 Technique: Duplex Doppler evaluation of the deep venous systems of both lower extremities from the common femora l veins to the popliteal veins including color Doppler and spectral/pulsed waveform analysis was perf ormed. Findings: RIGHT SIDE: The common femoral vein demonstrates appropriate compressibility and waveform variability. There is compressibility/patency of the great saphenous vein at the proximal thigh. The femoral vein demonstrates nonocclusive thrombus,. The deep femoral vein demonstrates appropriate compressibility and waveform variability. The popliteal vein demonstrates nonocclusive thrombus.. There is normal compressibility at the tibioperoneal trunk. LEFT SIDE: The common femoral vein demonstrates appropriate compressibility and waveform variability. There is compressibility/patency of the great saphenous vein at the proximal thigh. The femoral vein demonstrates appropriate compressibility and waveform variability. The deep femoral vein demonstrates appropriate compressibility and waveform variability. The popliteal vein demonstrates appropriate compressibility and waveform variability. There is normal compressibility at the tibioperoneal trunk. Impression: No left femoropopliteal venous thrombosis. Nonocclusive peripheral thrombus is present in the right superficial femoral vein and popliteal vein possibly representing chronic DVT.
[2024-08-04 12:30] LABS: INR 1.08 (0.9-1.15); Partial Thromboplastin Time 31.6 SEC (24.5-34.5); Prothrombin Time 11.4 sec (9.3-11.8)
--- NOTE | 2024-08-04 12:30 | DVH ---
CHEST RADIOGRAPH Indication: preop for procedure, pain Technique: Single frontal view of the chest was obtained COMPARISON: None FINDINGS: Lines and Tubes: None Lungs: Clear Pleura: No effusion. No pneumothorax. Cardiomediastinal contours: Unremarkable Bones: Unremarkable IMPRESSION: No acute disease.
--- NOTE | 2024-08-04 13:13 | DVHPN2 ---
Progress Note - Dictate Date Seen: Aug 04, 2024 Medical Necessity Reason Pt with a Central, PICC or Fol: No Subjective HIDA scan this morning did not show any acute abnormality. Patient is re- evaluated by general surgeon given his ongoing postprandial pain he is scheduled for gallbladder surgery for tomorrow. Meantime patient tolerating liquid diet. vital signs Vital Sign Date Time Temp Pulse Resp B/P (MAP) Pulse Ox O2 Delivery O2 Flow Rate FiO2 08/04/24 09:00 98.0 53 16 145/85 (105) 96 98.0 08/04/24 07:43 Room Air* 0 21 Total Intake and Output 08/03/24 08/03/24 08/04/24 15:00 23:00 07:00 Intake Total 1500 ml 200 ml Balance 1500 ml 200 ml medications Current Medications Medications Dose Ordered Sig/Marilyn Route Start Time Stop Time Status Last Admin Dose Admin Acetaminophen/ Hydrocodone Bitart 1 tab Q4HP PRN PO 08/01/24 19:15 Ondansetron HCl 4 mg Q4HP PRN IV 08/01/24 19:15 Acetaminophen 650 mg Q6HP PRN PO 08/01/24 19:15 Morphine Sulfate 2 mg Q4HPRN PRN IV 08/01/24 19:15 Piperacillin Sod/ Tazobactam Sod 100 ml @ 25 mls/hr Q8H IV 08/02/24 12:30 08/04/24 12:20 25 MLS/HR Enoxaparin Sodium 90 mg Q12HR SC 08/03/24 22:00 08/04/24 10:18 90 MG Dextrose/Sodium Chloride 1,000 ml @ 75 mls/hr [id number] IV 08/04/24 11:30 objective Comfortable in bed alert awake oriented x3. HEENT neck supple no JVD. Heart regular rate and rhythm S1-S2. Lungs fair air movement without rales wheezes. Abdomen minimal tenderness to deep palpation in the right upper quadrant region without rebound or guarding. Positive bowel sounds. Obese. Extremities no edema. Positive pulses. 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 Symptomatic cholelithiasis ruled out acute cholecystitis 2. Transaminitis 3. History of recurrent DVT right lower extremity 4. BPH start therapeutic Lovenox, risks benefits and alternatives of therapeutic Lovenox including life-threatening bleeding disorder deficits. With the patient in detail who understand verbalized understanding and agreeable to plan. We will hold tonight and tomorrow morning Lovenox dose given her scheduled for surgery. Risks of bleeding discussed with the patient. Patient apparently being on Eliquis for last six months due to DVT in his right leg post orthopedic surgery. Full liquid diet today. NPO after midnight. Patient tells me had a preop cardiac evaluation and clearance as an outpatient basis with the Dr. Mclean for his orthopedic surgery which he had done about six months ago. He does not have any cardiac or pulmonary issues. Patient is at average risk for any chanel/postoperative issues given his age and okay to proceed with the gallbladder surgery in the morning. Plan discussed with: Patient RITU BALDWIN MD Aug 04, 2024 13:11
--- NOTE | 2024-08-04 14:02 | ECG ---
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
[2024-08-04] MEDS: D5W/SOD CHLO 0.9% 1,000 ML IV SCH (16:25)
[2024-08-04] MEDS: TAMSULOSIN HYDROCHLORIDE 0.4 MG CAP PO SCH (17:31)
[2024-08-04] MEDS: FINASTERIDE 5 MG TAB PO SCH (17:31)
[2024-08-05 01:00] VITALS: BP 137/83; PULSE 58; RESP 17; TEMP 97.8; O2SAT 95
[2024-08-05 05:00] VITALS: BP 130/65; PULSE 62; RESP 18; TEMP 97.8; O2SAT 95
[2024-08-05 06:42] LABS: INR 1.07 (0.9-1.15); Prothrombin Time 11.3 sec (9.3-11.8)
[2024-08-05] MEDS: BUPIVACAINE 0.25% INJ 50ML VIAL ONE (07:43)
[2024-08-05] MEDS: Lidocaine/Epinephrine 1%-1:100,000 30ML VL ONE (07:43)
[2024-08-05] MEDS ORDERED: fentaNYL CITRATE 100 MCG/2 ML VL ONE (07:55)
[2024-08-05] MEDS ORDERED: MIDAZOLAM HCL 2MG/2ML 2ml VIAL (1mg/ml) ONE (07:56)
[2024-08-05] MEDS ORDERED: LIDOCAINE HCL 100 MG/5ML (2%) SYRG INJ IV ONE (07:59)
[2024-08-05] MEDS: ONDANSETRON HCL 4 MG/2 ML VIAL IV ONE (08:00)
[2024-08-05] MEDS ORDERED: HYDROmorphone HCL 2 MG/ML VL/or syr IV PRN ×2 (08:00)
--- NOTE | 2024-08-05 08:13 | DVHPN2 ---
Progress Note Date Seen: Aug 03, 2024 Medical Necessity Reason Pt with a Central, PICC or Fol: No Subjective Patient reports: No new complaints Changes from previous H/P or p: No Changes Objective vital signs Vital Sign Date Time Temp Pulse Resp B/P (MAP) Pulse Ox O2 Delivery O2 Flow Rate FiO2 08/05/24 05:00 97.8 62 18 130/65 (86) 95 97.8 08/04/24 20:00 Room Air* 0 21 Total Intake and Output 08/04/24 08/04/24 08/05/24 15:00 23:00 07:00 Intake Total 400 ml 400 ml 643 ml Balance 400 ml 400 ml 643 ml medications Current Medications Medications Dose Ordered Sig/Marilyn Route Start Time Stop Time Status Last Admin Dose Admin Acetaminophen/ Hydrocodone Bitart 1 tab Q4HP PRN PO 08/01/24 19:15 Ondansetron HCl 4 mg Q4HP PRN IV 08/01/24 19:15 Acetaminophen 650 mg Q6HP PRN PO 08/01/24 19:15 Morphine Sulfate 2 mg Q4HPRN PRN IV 08/01/24 19:15 Piperacillin Sod/ Tazobactam Sod 100 ml @ 25 mls/hr Q8H IV 08/02/24 12:30 08/05/24 04:34 25 MLS/HR Enoxaparin Sodium 90 mg Q12HR SC 08/03/24 22:00 08/04/24 10:18 90 MG Dextrose/Sodium Chloride 1,000 ml @ 75 mls/hr [id number] IV 08/04/24 11:30 08/05/24 01:01 75 MLS/HR Tamsulosin HCl 0.4 mg QPM PO 08/04/24 18:00 08/04/24 17:31 0.4 MG Finasteride 5 mg DAILY PO 08/04/24 18:00 08/04/24 17:31 5 MG Hydromorphone HCl 0.5 mg Q2HP PRN IV 08/05/24 08:00 08/05/24 08:01 UNV Hydromorphone HCl 0.5 mg Q10M PRN IV 08/05/24 08:00 08/05/24 08:41 UNV Hydromorphone HCl 0.25 mg Q10M PRN IV 08/05/24 08:00 08/05/24 08:31 UNV Examination gen; aaox3,nad abd; soft nd minimally ttp in ruq ext; no edema laboratory and microbiology Laboratory Tests 08/03/24 18:15 08/02/24 05:44 Test 08/03/24 18:15 Range/Units Serum Glucose 107 H 74-106 mg/dL Problem List/Assessment/Plan Problem List/Assessment/Plan diet as alexis if pain persists, hida scan abx Plan discussed with: Patient Dietary Evaluation Review Comments: 1. Advance diet as medically feasible 2. Continue current plan of care Expected Outcomes/Goals: Pt will advance to regular diet Pt will meet >75% estimated needs Fu 3-5 days LENNY HOUSE MD Aug 05, 2024 08:13
--- NOTE | 2024-08-05 08:14 | DVHPN2 ---
Progress Note Date Seen: Aug 04, 2024 Medical Necessity Reason Pt with a Central, PICC or Fol: No Subjective Patient reports: Other (has some nausea and mild pain) Objective vital signs Vital Sign Date Time Temp Pulse Resp B/P (MAP) Pulse Ox O2 Delivery O2 Flow Rate FiO2 08/05/24 05:00 97.8 62 18 130/65 (86) 95 97.8 08/04/24 20:00 Room Air* 0 21 Total Intake and Output 08/04/24 08/04/24 08/05/24 15:00 23:00 07:00 Intake Total 400 ml 400 ml 643 ml Balance 400 ml 400 ml 643 ml medications Current Medications Medications Dose Ordered Sig/Marilyn Route Start Time Stop Time Status Last Admin Dose Admin Acetaminophen/ Hydrocodone Bitart 1 tab Q4HP PRN PO 08/01/24 19:15 Ondansetron HCl 4 mg Q4HP PRN IV 08/01/24 19:15 Acetaminophen 650 mg Q6HP PRN PO 08/01/24 19:15 Morphine Sulfate 2 mg Q4HPRN PRN IV 08/01/24 19:15 Piperacillin Sod/ Tazobactam Sod 100 ml @ 25 mls/hr Q8H IV 08/02/24 12:30 08/05/24 04:34 25 MLS/HR Enoxaparin Sodium 90 mg Q12HR SC 08/03/24 22:00 08/04/24 10:18 90 MG Dextrose/Sodium Chloride 1,000 ml @ 75 mls/hr [id number] IV 08/04/24 11:30 08/05/24 01:01 75 MLS/HR Tamsulosin HCl 0.4 mg QPM PO 08/04/24 18:00 08/04/24 17:31 0.4 MG Finasteride 5 mg DAILY PO 08/04/24 18:00 08/04/24 17:31 5 MG Hydromorphone HCl 0.5 mg Q2HP PRN IV 08/05/24 08:00 08/05/24 08:01 UNV Hydromorphone HCl 0.5 mg Q10M PRN IV 08/05/24 08:00 08/05/24 08:41 UNV Hydromorphone HCl 0.25 mg Q10M PRN IV 08/05/24 08:00 08/05/24 08:31 UNV Examination gen; aaox3,nad abd; soft nd mildly ttp in ruq, no r r g ext; no edema laboratory and microbiology Laboratory Tests 08/03/24 18:15 08/02/24 05:44 Test 08/03/24 18:15 Range/Units Serum Glucose 107 H 74-106 mg/dL Problem List/Assessment/Plan Problem List/Assessment/Plan hida scan npo after midnight abx pt ptt inr consent Plan discussed with: Patient Dietary Evaluation Review Comments: 1. Advance diet as medically feasible 2. Continue current plan of care Expected Outcomes/Goals: Pt will advance to regular diet Pt will meet >75% estimated needs Fu 3-5 days LENNY HOUSE MD Aug 05, 2024 08:14
[2024-08-05] MEDS ORDERED: DexAMETHasone SOD PHOS 10MG/1ML VIAL INJ ONE (08:17)
[2024-08-05] MEDS ORDERED: METOCLOPRAMIDE HCL 5MG/ml INJ 2ml VIAL ONE (08:17)
[2024-08-05] MEDS ORDERED: ONDANSETRON HCL 4 MG/2 ML VIAL ONE (08:17)
[2024-08-05] MEDS ORDERED: PROPOFOL 10 MG/ML 20 ML IV ONE (08:46)
[2024-08-05] MEDS ORDERED: LIDOCAINE 1% INJ PF 5ML AMP ONE (08:46)
[2024-08-05] MEDS ORDERED: HYDROmorphone HCL 2 MG/ML VL/or syr ONE (09:52)
[2024-08-05] MEDS ORDERED: SUGAMMADEX 200mg/2ml Vial (100MG/ML) IV ONE (10:11)
--- NOTE | 2024-08-05 10:38 | DVHOP2 ---
Operative Report Pre-procedure diagnosis acute cholecystitis Postprocedure diagnosis is chronic cholecystitis extensive intra-abdominal adhesions Procedure performed 1. Is laparoscopic converted to open cholecystectomy 2. Is extensive lysis of adhesions greater than 1 hour 3. Is placement of [address] [place] channel drain Surgeon Dr. Arsalan House Anesthesia: Dr. Prajapati EBL: 100cc Specimen: subtotal cholecystectomy Complications; none Indications: This is a 79-year-old gentleman who presented to the hospital with a 2 week history of nausea vomiting. Patient was seen at urgent Care told he had gallstones he was admitted to the hospital patient was seen and examined there was no evidence of acute cholecystitis on imaging he was started on a diet however had persistent right upper quadrant pain and nausea decision was then made to undergo surgery despite negative HIDA scan as the patient had persistent symptoms I explained the risks benefits and alternatives of the procedure and also explained to the patient that all of his symptoms may not be due to the gallbladder but right upper quadrant pain and nausea are consistent with that. Of note the patient states he has had multiple extensive surgeries in the past he states that he is at 27 intra-abdominal drains placed in the past. I explained the risks benefits and alternatives of the procedure also and explained to him the high likelihood of conversion to open as well as intra- abdominal complications due to the previous extensive surgical history he understood all this wished to proceed with surgical intervention and was consented as such Findings: Frozen abdomen extensive innumerable dense adhesions no visualization was possible to the extensive nature of the adhesions. Extensive adhesions in the gallbladder fossa stomach duodenum and colon were densely adherent to the liver cholecystic triangle was densely covered in adhesions densely adherent duodenum and stomach. Procedure in detail: Patient identified in the preoperative holding area questions answered consent confirmed transferred the operating table placed supine on the OR room table appropriately padded positioned and secured to the table after the induction of general anesthesia the patient was widely prepped and draped and shaved in usual sterile fashion time-out performed all in agreement next a 2 cm periumbilical incision was placed through the previous scar carried down 15 blade scalpel through the skin subcutaneous tissues down to the level of the fascia fascia was identified grasped with Ange lifted and sharply incised harmless entry to the abdominal cavity was gained 0 Vicryl U- stitch placed in the fascia Ryanne port introduced and pneumoperitoneum was started upon laparoscopy there was no visualization possible the entire intra- abdominal cavity was covered in dense omental adhesions there was adhesions of the small intestine to the anterior abdominal wall at this point a entry at johnson's point was attempted with a 5 mm Optiview technique again similar visualization was afforded there was absolutely no visualization possible due to the dense nature of the adhesions at this point decision was made to convert to open a 15 cm subcostal incision was made with 15 blade scalpel deepened once through the skin and subcutaneous tissues down to the fascia fascia was incised muscle was incised and harmless entry to the abdominal cavity was gained at this point there were dense adhesions again noted in the right upper quadrant gallbladder could not be visualized omentum was covering the entire liver. After approximately 1 hour 15 minutes of lysis of adhesions the gallbladder was finally visualized. The colon and duodenum had completely become adherent to the gallbladder careful adhesiolysis was undertaken with blunt dissection select jimi cautery and sharp dissection. Once this was done the gallbladder was visualized it was taken down in a dome down technique. The neck and cholecystic triangle were absolutely covered in duodenum adhesions as well as stomach. At this point it was deemed unsafe to dissect near the cholecystic triangle due to the vital structures the gallbladder was retracted cephalad and an Endo-NORMA 60 mm vascular load stapler was used and the gallbladder was resected proximal to the neck. Bile and stones were aspirated out prior to resection. Specimen passed off for pathological analysis subtotal cholecystectomy was performed. At this point hemostasis in the liver was controlled with Surgicel Sherman and snow. Due to the friable nature and extensive adhesions the omentum and gallbladder fossa were oozy this was controlled with cautery Surgicel snow and Sherman. Once hemostasis was deemed secure a 19 [place] channel drain was placed in the fossa exited out the right upper quadrant. Affixed in position with 2-0 silk fossa was irrigated and suctioned out we then began our closure posterior sheath was closed with 0 Vicryl in a running manner anterior sheath was closed with 0 Vicryl in a running manner deep subcutaneous was closed with 0 Vicryl. Local infiltrated in the wound ciarra were used to close the skin periumbilical incision and left upper quadrant incision local infiltrated in all port sites patient was cleaned off sterile dressings applied all counts correct x2 at end the case patient tolerated the procedure well transferred to PACU in stable but guarded condition I updated his Sri after the surgery ARSALAN HOUSE MD 22, 2025 10:38
[2024-08-05] MEDS: HYDROmorphone HCL 2 MG/ML VL/or syr ONE ×2 (10:43→11:27)
[2024-08-05] MEDS: HYDROmorphone HCL 2 MG/ML VL/or syr IV PRN (10:45)
[2024-08-05 13:00] VITALS: BP 118/72; PULSE 71; RESP 18; TEMP 96.3; O2SAT 96
[2024-08-05 17:00] VITALS: BP 103/72; PULSE 135; RESP 20; TEMP 97.6; O2SAT 92
[2024-08-05] MEDS: HYDROcodone-ACET 5/325MG TAB PO PRN (17:07)
--- NOTE | 2024-08-05 17:11 | DVHPN2 ---
Progress Note - Dictate Date Seen: Aug 05, 2024 Medical Necessity Reason Pt with a Central, PICC or Fol: No Subjective Postop day 1 cholecystectomy surgery. Apparently the patient had a significant adhesions per surgeon. Patient is comfortable at present. Complains of some discomfort but pain is controlled with medications. Voiding urine without problems vital signs Vital Sign Date Time Temp Pulse Resp B/P (MAP) Pulse Ox O2 Delivery O2 Flow Rate FiO2 08/05/24 13:00 96.3 71 18 118/72 (87) 96 96.3 08/05/24 11:00 Nasal Cannula 2.0 08/05/24 07:55 21 Total Intake and Output 08/04/24 08/04/24 08/05/24 15:00 23:00 07:00 Intake Total 400 ml 400 ml 643 ml Balance 400 ml 400 ml 643 ml medications Current Medications Medications Dose Ordered Sig/Marilyn Route Start Time Stop Time Status Last Admin Dose Admin Acetaminophen/ Hydrocodone Bitart 1 tab Q4HP PRN PO 08/01/24 19:15 08/05/24 17:07 1 TAB Ondansetron HCl 4 mg Q4HP PRN IV 08/01/24 19:15 Acetaminophen 650 mg Q6HP PRN PO 08/01/24 19:15 Morphine Sulfate 2 mg Q4HPRN PRN IV 08/01/24 19:15 Piperacillin Sod/ Tazobactam Sod 100 ml @ 25 mls/hr Q8H IV 08/02/24 12:30 08/05/24 12:24 25 MLS/HR Enoxaparin Sodium 90 mg Q12HR SC 08/03/24 22:00 08/04/24 10:18 90 MG Dextrose/Sodium Chloride 1,000 ml @ 75 mls/hr [id number] IV 08/04/24 11:30 08/05/24 01:01 75 MLS/HR Tamsulosin HCl 0.4 mg QPM PO 08/04/24 18:00 08/05/24 17:07 0.4 MG Finasteride 5 mg DAILY PO 08/04/24 18:00 08/05/24 12:23 5 MG objective Comfortable in bed alert awake oriented x3. HEENT neck supple no JVD. Heart regular rate and rhythm S1-S2. Lungs fair air movement without rales wheezes. Abdomen minimal tenderness to deep palpation in the right upper quadrant region without rebound or guarding. Positive bowel sounds. Obese. Extremities no edema. Positive pulses. 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 Chronic cholecystitis status post cholecystectomy please see the detailed operative note 2. Transaminitis 3. History of recurrent DVT right lower extremity 4. BPH We will hold Lovenox/anticoagulation today. We will discussed with general surgeon to see if okay to resume Eliquis from tomorrow for his chronic DVT. Otherwise continue pain and nausea medications. Incentive spirometry. Out of bed ambulation. Continue rest of supportive care and treatment. Follow up getting management for clinical course and postop recovery. Discussed with the nurse and the patient regarding care plan. Problems(with codes): (1) Chronic deep vein thrombosis (DVT) of lower leg (2) Osteoarthritis (3) Gallbladder disease (4) BPH (benign prostatic hyperplasia) Dietary Evaluation Review Comments: 1. Advance diet as medically feasible 2. Continue current plan of care Expected Outcomes/Goals: Pt will advance to regular diet Pt will meet >75% estimated needs Fu 3-5 days Plan discussed with: Patient, Other RITU BALDWIN MD Aug 05, 2024 17:11
[2024-08-05] MEDS ORDERED: FINASTERIDE 5 MG TAB PO SCH (18:00)
[2024-08-05] MEDS: MORPHINE SULFATE INJ 2 MG/ml SYRG IV PRN (20:20)
[2024-08-05 21:00] VITALS: BP 117/69; PULSE 65; RESP 19; TEMP 98; O2SAT 96
[2024-08-06] VITALS (8 sets, daily range): BP systolic 97–141; BP diastolic 56–70; PULSE 63–70; RESP 18–20; TEMP 97.6–98.3; O2SAT 91–100
[2024-08-06 07:27] LABS: Basophils # (auto) 0 10 ^3/uL (0-0.2); Basophils % (auto) 0.1 % (0.0-2.0); Eosinophils # (auto) 0 10 ^3/uL (0-0.8); Hematocrit 34.8 % (41.0-53.0); Hemoglobin 11.9 g/dL (13.5-17.5); Lymphocytes # (auto) 1.1 10 ^3/uL (0.4-5.4); Lymphocytes % (auto) 10.8 % (10.0-50.0); Mean Corpuscular Hemoglobin 32.3 pg (28.0-32.0); Mean Corpuscular Hgb Conc. 34.2 g/dL (32.0-36.0); Mean Corpuscular Volume 94.5 fL (80.0-100.0); Monocytes % (auto) 9.8 % (0.0-12.0); Neutrophils # (auto) 7.8 10 ^3/uL (1.6-8.6); Neutrophils % (auto) 79.3 % (37.0-80.0); Nucleated Red Blood Cells % 0.1 %; Platelet Count (auto) 284 10^3/uL (140-450); Red Blood Cells 3.68 10^6/uL (4.5-5.90); Red Cell Distribution Width 13.6 % (11.8-14.3); White Blood Cell 9.8 10^3/uL (4.4-10.8)
[2024-08-06 07:42] LABS: Anion Gap 10 (5-15); BUN/Creatinine Ratio 8.7 (10.0-20.0); Calcium 9.3 mg/dL (8.7-10.4); Carbon Dioxide 26 mmol/L (20-31); Chloride 105 mmol/L (98-107); Potassium 4.1 mmol/L (3.5-5.1); Sodium 141 mmol/L (136-145); Total Protein 5.9 g/dL (5.7-8.2)
[2024-08-06 07:43] LABS: Albumin 3.6 g/dL (3.2-4.8); Bilirubin, Total 0.9 mg/dL (0.2-1.0)
[2024-08-06 07:48] LABS: Alanine Aminotransferase 76 U/L (7-40); Alkaline Phosphatase 161 U/L (46-116); Aspartate Aminotransferase 56 U/L (13-40); Blood Urea Nitrogen 8 mg/dL (9-23); Glucose 122 mg/dL (74-106)
--- NOTE | 2024-08-06 13:50 | DVHPN2 ---
Progress Note - Dictate Date Seen: Aug 06, 2024 Medical Necessity Reason Pt with a Central, PICC or Fol: No Subjective Postop day 2 cholecystectomy surgery. Comfortable without significant pain. Would like his diet advanced. vital signs Vital Sign Date Time Temp Pulse Resp B/P (MAP) Pulse Ox O2 Delivery O2 Flow Rate FiO2 08/06/24 07:50 Room Air* 0 21 08/06/24 05:00 98.0 67 19 108/60 (76) 92 98.0 Total Intake and Output 08/05/24 08/05/24 08/06/24 15:00 23:00 07:00 Intake Total 618 ml 977.5 ml Output Total 3 ml 1106 ml Balance -3 ml 618 ml -128.5 ml medications Current Medications Medications Dose Ordered Sig/Marilyn Route Start Time Stop Time Status Last Admin Dose Admin Acetaminophen/ Hydrocodone Bitart 1 tab Q4HP PRN PO 08/01/24 19:15 08/05/24 17:07 1 TAB Ondansetron HCl 4 mg Q4HP PRN IV 08/01/24 19:15 Acetaminophen 650 mg Q6HP PRN PO 08/01/24 19:15 Morphine Sulfate 2 mg Q4HPRN PRN IV 08/01/24 19:15 08/05/24 20:20 2 MG Piperacillin Sod/ Tazobactam Sod 100 ml @ 25 mls/hr Q8H IV 08/02/24 12:30 08/06/24 11:48 25 MLS/HR Enoxaparin Sodium 90 mg Q12HR SC 08/03/24 22:00 08/06/24 09:17 90 MG Dextrose/Sodium Chloride 1,000 ml @ 75 mls/hr [id number] IV 08/04/24 11:30 08/06/24 00:43 75 MLS/HR Tamsulosin HCl 0.4 mg QPM PO 08/04/24 18:00 08/05/24 17:07 0.4 MG Finasteride 5 mg DAILY PO 08/04/24 18:00 08/06/24 09:16 5 MG objective Comfortable in bed alert awake oriented x3. HEENT neck supple no JVD. Heart regular rate and rhythm S1-S2. Lungs fair air movement without rales wheezes. Abdomen minimal tenderness to deep palpation in the right upper quadrant region without rebound or guarding. Positive bowel sounds. Obese. Extremities no edema. Positive pulses. 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 Chronic cholecystitis status post cholecystectomy please see the detailed operative note 2. Transaminitis 3. History of recurrent DVT right lower extremity 4. BPH Resumed Lovenox from today. Advance diet per General surgery recommendations. Physical therapy evaluation and encouraged activity and ambulation. Otherwise continue rest of supportive care and treatment. Follow clinical management per clinical course and recommendations from the healthcare management consultant surgeon. Discussed with the nurse regarding care plan. Dietary Evaluation Review Comments: 1. Advance diet as medically feasible 2. Continue current plan of care Expected Outcomes/Goals: Pt will advance to regular diet Pt will meet >75% estimated needs Fu 3-5 days Plan discussed with: Other RITU BALDWIN MD Aug 06, 2024 13:50
[2024-08-07] VITALS (8 sets, daily range): BP systolic 114–173; BP diastolic 57–89; PULSE 62–74; RESP 15–18; TEMP 97.7–98.8; O2SAT 92–99
[2024-08-07] MEDS: MILK OF MAGNESIA 30ML SUSP PO ONE (13:19)
--- NOTE | 2024-08-07 15:29 | DVHPN2 ---
Progress Note - Dictate Date Seen: Aug 07, 2024 Medical Necessity Reason Pt with a Central, PICC or Fol: No Subjective Clinically stable. Still not had any large or good bowel movements. Evaluated by general surgeon recommending to discharge after bowel movements. vital signs Vital Sign Date Time Temp Pulse Resp B/P (MAP) Pulse Ox O2 Delivery O2 Flow Rate FiO2 08/07/24 13:00 98.6 62 16 173/67 (102) 99 98.6 08/07/24 08:00 Room Air* 0 21 Total Intake and Output 08/06/24 08/06/24 08/07/24 15:00 23:00 07:00 Intake Total 100 ml 225 ml 425 ml Output Total 252 ml 0 ml Balance 100 ml -27 ml 425 ml medications Current Medications Medications Dose Ordered Sig/Marilyn Route Start Time Stop Time Status Last Admin Dose Admin Acetaminophen/ Hydrocodone Bitart 1 tab Q4HP PRN PO 08/01/24 19:15 08/07/24 01:11 1 TAB Ondansetron HCl 4 mg Q4HP PRN IV 08/01/24 19:15 Acetaminophen 650 mg Q6HP PRN PO 08/01/24 19:15 Morphine Sulfate 2 mg Q4HPRN PRN IV 08/01/24 19:15 08/06/24 15:07 2 MG Tamsulosin HCl 0.4 mg QPM PO 08/04/24 18:00 08/06/24 17:04 0.4 MG Finasteride 5 mg DAILY PO 08/04/24 18:00 08/07/24 10:50 5 MG Lactulose 30 ml BID PO 08/07/24 22:00 Apixaban 5 mg BID PO 08/07/24 22:00 objective Comfortable in bed alert awake oriented x3. HEENT neck supple no JVD. Heart regular rate and rhythm S1-S2. Lungs fair air movement without rales wheezes. Abdomen minimal tenderness to deep palpation in the right upper quadrant region without rebound or guarding. Positive bowel sounds. Obese. Extremities no edema. Positive pulses. 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 Chronic cholecystitis status post cholecystectomy please see the detailed operative note 2. Transaminitis 3. History of recurrent DVT right lower extremity 4. BPH We will resume Eliquis from tonight. Patient is receiving lactulose laxative for bowel movements. Continue current diet. If he remains stable overnight and has bowel movements he can be discharged home tomorrow. Discussed with the patient as well as his nurse regarding care plan at bedside. Dietary Evaluation Review Comments: 1. Advance diet as medically feasible 2. Continue current plan of care Expected Outcomes/Goals: Pt will advance to regular diet Pt will meet >75% estimated needs Fu 3-5 days Plan discussed with: Other RITU BALDWIN MD Aug 07, 2024 15:29
--- NOTE | 2024-08-07 17:32 | ECG ---
[facility] Test Date: 2024-08-04 Test Time: 11:48:39 Pat Name: DEBORAH RAMIREZ Department: Respiratoy Room: 0296 B Gender: M Assistance Representative: EVIN : 1945 Requested By: LENNY HOUSE Order Number: [id number] Reading MD: Ahsan Hill Measurements Intervals Randolph Rate: 56 P: 25 DE: 254 QRS: 21 QRSD: 101 T: 60 QT: 421 QTc: 407 Interpretive Statements Sinus arrhythmia Prolonged DE interval Abnormal R-wave progression, early transition Electronically Signed On 08-10-2024 12:56:56 PDT by Ahsan Hill Please click the below link to view image of tracing.
[2024-08-07] MEDS: LACTULOSE 20Gm/30ML SOLN PO SCH (22:00)
[2024-08-07] MEDS: APIXABAN 5 MG TAB PO SCH (22:04)
[2024-08-08 01:00] VITALS: BP 110/60; PULSE 75; RESP 16; TEMP 98.5; O2SAT 93
[2024-08-08 05:00] VITALS: BP 102/69; PULSE 70; RESP 15; TEMP 98.3; O2SAT 94
[2024-08-08 08:00] VITALS: PULSE 69; RESP 18; O2SAT 96
[2024-08-08 09:00] VITALS: BP 111/78; PULSE 69; RESP 18; TEMP 98.2; O2SAT 96
[2024-08-08 13:00] VITALS: BP 133/88; PULSE 62; RESP 18; TEMP 98.4; O2SAT 94
[2024-08-08] MEDS ORDERED: NALO4SPR2 (13:14)
[2024-08-08] MEDS ORDERED: CEFD300C2 PO (13:14)
[2024-08-08] MEDS ORDERED: HYDR-4902 PO (13:14)
[2024-08-08] MEDS ORDERED: LACT10SO3 PO (13:14)
--- NOTE | 2024-08-08 13:17 | DVHDS2 ---
Discharge Summary Date of Admission Aug 01, 2024 at 19:04 Date of Discharge: Aug 08, 2024 Labs/Diagnostic Data: Laboratory Results Test 08/06/24 06:21 08/05/24 05:02 08/02/24 01:00 White Blood Count 9.8 10^3/uL (4.4-10.8) Red Blood Count 3.68 10^6/uL (4.5-5.90) Hemoglobin 11.9 g/dL (13.5-17.5) Hematocrit 34.8 % (41.0-53.0) Mean Corpuscular Volume 94.5 fL (80.0-100.0) Mean Corpuscular Hemoglobin 32.3 pg (28.0-32.0) Mean Corpuscular Hemoglobin Concent 34.2 g/dL (32.0-36.0) Red Cell Distribution Width 13.6 % (11.8-14.3) Platelet Count 284 10^3/uL (140-450) Mean Platelet Volume 8.6 fL (6.9-10.8) Neutrophils (%) (Auto) 79.3 % (37.0-80.0) Lymphocytes (%) (Auto) 10.8 % (10.0-50.0) Monocytes (%) (Auto) 9.8 % (0.0-12.0) Eosinophils (%) (Auto) 0.0 % (0.0-7.0) Basophils (%) (Auto) 0.1 % (0.0-2.0) Neutrophils # (Auto) 7.8 10 ^3/uL (1.6-8.6) Lymphocytes # (Auto) 1.1 10 ^3/uL (0.4-5.4) Monocytes # (Auto) 1.0 10 ^3/uL (0-1.3) Eosinophils # (Auto) 0 10 ^3/uL (0-0.8) Basophils # (Auto) 0 10 ^3/uL (0-0.2) Nucleated Red Blood Cells 0.1 % Sodium Level 141 mmol/L (136-145) Potassium Level 4.1 mmol/L (3.5-5.1) Chloride Level 105 mmol/L (98-107) Carbon Dioxide Level 26 mmol/L (20-31) Anion Gap 10 (5-15) Blood Urea Nitrogen 8 mg/dL (9-23) Creatinine 0.92 mg/dL (0.700-1.30) Glomerular Filtration Rate Calc 85 mL/min (>90) BUN/Creatinine Ratio 8.7 (10.0-20.0) Serum Glucose 122 mg/dL (74-106) Calcium Level 9.3 mg/dL (8.7-10.4) Total Bilirubin 0.9 mg/dL (0.2-1.0) Aspartate Amino Transferase (AST) 56 U/L (13-40) Alanine Aminotransferase (ALT) 76 U/L (7-40) Alkaline Phosphatase 161 U/L (46-116) Total Protein 5.9 g/dL (5.7-8.2) Albumin 3.6 g/dL (3.2-4.8) Prothrombin Time 11.3 sec (9.3-11.8) Prothrombin Time INR 1.07 (0.9-1.15) Activated Partial Thromboplast Time 31.0 SEC (24.5-34.5) Urine Color Yellow (Yellow) Urine Clarity Clear (Clear) Urine pH 5.5 (5.0-9.0) Urine Specific Douglas 1.024 (1.001-1.035) Urine Protein Trace (Negative) Urine Ketones Negative (Negative) Urine Blood Negative /uL (Negative) Urine Nitrite Negative (Negative) Urine Bilirubin Negative (Negative) Urine Urobilinogen Normal mg/dL (Negative) Urine Leukocyte Esterase Negative /uL (Negative) Urine RBC 2 /hpf (0 - 3) Urine Microscopic WBC 4 /HPF (0-3) Urine Squamous Epithelial Cells Few /hpf (<5) Urine Bacteria None seen /hpf (None Seen) Urine Mucus Few (None Seen) Urine Glucose Normal mg/dL (Normal) Other Laboratory Tests 08/06/24 06:21 Brief Hx & Hospital Course: 79-year-old male presents with complaints of abdominal pain, nausea, vomiting over the previous 2 weeks. Patient endorsed he [facility] and told he had gallstones. Was sent in to the emergency department for further evaluation. At this time patient states symptoms have improved denies fevers, chills, shortness of breath, chest pain, hematemesis, hematochezia, melena. Patient admitted and evaluated by general surgeon. Patient did not tolerate his diet. Therefore he underwent gallbladder surgery apparently showed a significant adhesions therefore had a open cholecystectomy with a ANDREA drain. Postop patient recovery is uneventful. Patient is tolerating his diet. No nausea or vomiting. Had bowel movements. Pain is improved. Therefore surgeon recommended patient to be discharged home with outpatient follow up with him in next 1-2 weeks to remove the ANDREA drain and postop evaluation. This is discussed with the patient, I have talked to him regarding his hospital diagnosis, treatment he received, discharge medications, discharge follow up and he has verbalized understanding of these and agree with the care plan as outlined. Operations or Procedures Operative Report Pre-procedure diagnosis acute cholecystitis Postprocedure diagnosis is chronic cholecystitis extensive intra-abdominal adhesions Procedure performed 1. Is laparoscopic converted to open cholecystectomy 2. Is extensive lysis of adhesions greater than 1 hour 3. Is placement of 19 Sami [address] drain Sur[address] Dr[address] Arsalan Woodard Anesthesia: Dr. Prajapati EBL: 100cc Specimen: subtotal cholecystectomy Complications; none Indications: This is a 79-year-old gentleman who presented to the hospital with a 2 week history of nausea vomiting. Patient was seen at urgent Care told he had gallstones he was admitted to the hospital patient was seen and examined there was no evidence of acute cholecystitis on imaging he was started on a diet however had persistent right upper quadrant pain and nausea decision was then made to undergo surgery despite negative HIDA scan as the patient had persistent symptoms I explained the risks benefits and alternatives of the procedure and also explained to the patient that all of his symptoms may not be due to the gallbladder but right upper quadrant pain and nausea are consistent with that. Of note the patient states he has had multiple extensive surgeries in the past he states that he is at 27 intra-abdominal drains placed in the past. I explained the risks benefits and alternatives of the procedure also and explained to him the high likelihood of conversion to open as well as intra- abdominal complications due to the previous extensive surgical history he understood all this wished to proceed with surgical intervention and was consented as such Findings: Frozen abdomen extensive innumerable dense adhesions no visualization was possible to the extensive nature of the adhesions. Extensive adhesions in the gallbladder fossa stomach duodenum and colon were densely adherent to the liver cholecystic triangle was densely covered in adhesions densely adherent duodenum and stomach. Procedure in detail: Patient identified in the preoperative holding area questions answered consent confirmed transferred the operating table placed supine on the OR room table appropriately padded positioned and secured to the table after the induction of general anesthesia the patient was widely prepped and draped and shaved in usual sterile fashion time-out performed all in agreement next a 2 cm periumbilical incision was placed through the previous scar carried down 15 blade scalpel through the skin subcutaneous tissues down to the level of the fascia fascia was identified grasped with Ange lifted and sharply incised harmless entry to the abdominal cavity was gained 0 Vicryl U- stitch placed in the fascia Ryanne port introduced and pneumoperitoneum was started upon laparoscopy there was no visualization possible the entire intra- abdominal cavity was covered in dense omental adhesions there was adhesions of the small intestine to the anterior abdominal wall at this point a entry at johnson's point was attempted with a 5 mm Optiview technique again similar visualization was afforded there was absolutely no visualization possible due to the dense nature of the adhesions at this point decision was made to convert to open a 15 cm subcostal incision was made with 15 blade scalpel deepened once through the skin and subcutaneous tissues down to the fascia fascia was incised muscle was incised and harmless entry to the abdominal cavity was gained at this point there were dense adhesions again noted in the right upper quadrant gallbladder could not be visualized omentum was covering the entire liver. After approximately 1 hour 15 minutes of lysis of adhesions the gallbladder was finally visualized. The colon and duodenum had completely become adherent to the gallbladder careful adhesiolysis was undertaken with blunt dissection selective cautery and sharp dissection. Once this was done the gallbladder was visualized it was taken down in a dome down technique. The neck and cholecystic triangle were absolutely covered in duodenum adhesions as well as stomach. At this point it was deemed unsafe to dissect near the cholecystic triangle due to the vital structures the gallbladder was retracted cephalad and an Endo-NORMA 60 mm vascular load stapler was used and the gallbladder was resected proximal to the neck. Bile and stones were aspirated out prior to resection. Specimen passed off for pathological analysis subtotal cholecystectomy was performed. At this point hemostasis in the liver was controlled with Surgicel Sherman and snow. Due to the friable nature and extensive adhesions the omentum and gallbladder fossa were oozy this was controlled with cautery Surgicel snow and Sherman. Once hemostasis was deemed secure a 19 Sami channel drain was placed in the fossa exited out the right upper quadrant. Affixed in position with 2-0 silk fossa was irrigated and suctioned out we then began our closure posterior sheath was closed with 0 Vicryl in a running manner anterior sheath was closed with 0 Vicryl in a running manner deep subcutaneous was closed with 0 Vicryl. Local infiltrated in the wound ciarra were used to close the skin periumbilical incision and left upper quadrant incision local infiltrated in all port sites patient was cleaned off sterile dressings applied all counts correct x2 at end the case patient tolerated the procedure well transferred to PACU in stable but guarded condition I updated his Sri after the surgery ARSALAN WOODARD MD Aug 05, 2024 10:38 DICTATED BY:ARSALAN WOODARD MD Condition at Discharge: Stable Final Diagnosis/Problems List Acute gallstone cholecystitis status post cholecystectomy Discharge Disposition: Home Discharge Instruct/Medications Diet: Consistent carbohydrate, Cardiac 2g Na,low cholest Diet comment: Low-cholesterol low-fat diet Activity: No Restrictions, As Tolerated Activity comment: No heavy lifting bending or driving for seven days Follow Up/Referral: Dr. Arsalan Woodard surgeon 10-14 days post cholecystectomy follow up and remove ANDREA drain Medications: As prescribed per discharge med reconciliation list New Medications: Cefdinir (Cefdinir) 300 Mg Cap 1 CAP PO BID, #10 CAP Hydrocodone-Acetaminophen (Hydrocodone Bitartrate/AC 5-325 mg) 1 Tab Tab 1 TAB PO Q6HPRN PRN, #14 TAB Lactulose (Lactulose) 10 Gm/15 Ml Adali 20 GM PO Q8HPRN PRN, #240 ML Naloxone HCl (Narcan) 4 Mg/0.1 Ml Spr 4 MG NA Q5MP PRN, #1 SPRAY Continued Medications: Apixaban Base (Eliquis) 5 Mg Tab 5 MG PO BID, #120 TAB Take 2 tablets (10mg) twice a day for fisrt 10 days then take 1 tablet (5mg) twice a day Finasteride (Finasteride) 5 Mg Tab 5 MG PO, TAB Tamsulosin Hcl (Tamsulosin Hcl) 0.4 Mg Cap 0.4 MG PO, CAP Discharge Statement: "Patient was advised to return to the ER or call 911 if any headaches, dizziness, shortness of breath, chest pain, abdominal pain, bleeding, fevers, or worsening of medical condition. Patient was counseled about treatment plan, medications, possible side effects, patientverbalized understanding. All questions were answered to the best of my ability. This discharge took greater then 30 minutes in planning, reviewing documentation, counseling the patient, and discussing with other team members." ASSESSMENT ASSESSMENT Assessment Acute gallstone cholecystitis status post cholecystectomy RITU BALDWIN MD Aug 08, 2024 13:17
[2024-08-08 16:31] VITALS: BP 132/76; PULSE 73; RESP 18; TEMP 98.1; O2SAT 96
== END 2024-08-08 16:41 | disposition home or self-care (01) | DRG 416 ==
LOC: ER 12:03 → OVERFLOW 19:04 → WEST WING 08-02 02:40
PROVIDERS: ADMIT Hospitalist; ATTEND Hospitalist
PROC: 0FN40ZZ Release Gallbladder, Open Approach (ICD-10-PCS; 2024-08-05)
PROC: 0FJ44ZZ Inspection of Gallbladder, Percutaneous Endoscopic Approach (ICD-10-PCS; 2024-08-05)
PROC: 0FT40ZZ Resection of Gallbladder, Open Approach (ICD-10-PCS; principal; 2024-08-05 08:18)
DX: K80.10 Calculus of gallbladder with chronic cholecystitis without obstruction (principal); N40.0 Benign prostatic hyperplasia without lower urinary tract symptoms; K66.0 Peritoneal adhesions (postprocedural) (postinfection); R74.01 Elevation of levels of liver transaminase levels; Z90.49 Acquired absence of other specified parts of digestive tract; Z86.718 Personal history of other venous thrombosis and embolism; Z79.01 Long term (current) use of anticoagulants; Z53.31 Laparoscopic surgical procedure converted to open procedure; Z79.899 Other long term (current) drug therapy
CPT/HCPCS: 36415; 71045; 74181; 76705; 78226; 80048; 80053; 81001; 82247; 84450; 84460; 85025; 85610; 85730; 86850; 86900; 86901; 93005; 93970; 96365; 97110; 97116; 97163; G0378; J1100; J2250; J2405; J2543; J2704; J3490; J7042

== ENCOUNTER 2024-11-07 10:06 | Inpatient (IN) | payer OTHER ==
[~2024-11-07] VITALS: Ht 177.8 cm; Wt 87.7 kg
[~2024-11-07 10:06] MED LIST changes: +CEFD300C2 PO; -IBUP-1453 PO; +LACT10SO3 PO; +NALO4SPR2
--- NOTE | 2024-11-07 10:23 | ED.PDOC ---
GI ASSESSMENT HPI Comments This is a 79 year old male accompanied by presenting to the ED with chief complaint of abdominal pain. reports that the patient has been experiencing increased nausea, vomiting, chills, and 6/10 epigastric abdominal pain since Wednesday after eating fatty foods. relays that the patient had recent cholecystectomy performed in July 2024 and since then has had intermittent nausea and vomiting when eating fried/fatty foods. states that the patient went to on 10/20/24 for the same complaint and a scan showed he had cholelithiasis, despite already having his gallbladder removed, and elevated liver enzymes. Patient denies any diarrhea, fever, dysuria, hematemesis, or melena. Time Seen by MD: 10:20 Primary Care Provider: Jvaier Reviewed Notes: Nurses Notes, Medications, Allergies Allergies: Coded Allergies: NO KNOWN ALLERGIES (Unverified , 05/19/12) Home Meds Active Scripts Lactulose (Lactulose) 10 Gm/15 Ml Adali, 20 GM PO Q8HPRN PRN, #240 ML Prov:RITU BALDWIN MD 08/08/24 Cefdinir (Cefdinir) 300 Mg Cap, 1 CAP PO BID, #10 CAP Prov:RITU BALDWIN MD 08/08/24 Naloxone HCl (Narcan) 4 Mg/0.1 Ml Spr, 4 MG NA Q5MP PRN, #1 SPRAY Prov:RITU BALDWIN MD 08/08/24 Hydrocodone-Acetaminophen (Hydrocodone Bitartrate/AC 5-325 mg) 1 Tab Tab, 1 TAB PO Q6HPRN PRN, #14 TAB Prov:RITU BALDWIN MD 08/08/24 Apixaban Base (ELIQUIS) 5 Mg Tab, 5 MG PO BID, #120 TAB Take 2 tablets (10mg) twice a day for fisrt 10 days then take 1 tablet (5mg) twice a day Prov:RITU BALDWIN MD 04/26/23 Reported Medications Finasteride (Finasteride) 5 Mg Tab, 5 MG PO, TAB 10/31/20 Tamsulosin Hcl (Tamsulosin Hcl) 0.4 Mg Cap, 0.4 MG PO, CAP 10/31/20 Information Source: Patient, Spouse Mode of Arrival: Ambulatory Timing: Days Duration: Since onset Prehospital treatment: None Quality: Sharp Vomitus: Watery Stool: Normal Severity: Moderate Recent: None Recent Hx of: Abdominal Surgery Pain Location: Epigastric Modifying Factors: Food Associated sign and symptoms: Nausea, Vomiting, Abdominal Pain Past Medical History Past Medical History (Other): BPH, DVT in right leg Surgical History: Appendectomy, Cholecystectomy, Hernia Repair Surgical History (Other): Eye surgery, back surgery, bilateral knee replacement Family History Family History: Reviewed,noncontributory to illness, Family hx of Cancer Family History (Other): BPH, dementia Social History Smoker: Non-Smoker Alcohol: Denies ETOH Use Drugs: Denies Drug Use Lives In: Home Constitutional: denies: chills, diaphoresis, fatigue, fever, malaise, sweats, weakness, others EENTM: denies: blurred vision, double vision, ear bleeding, ear discharge, ear drainage, ear pain, ear ringing, eye pain, eye redness, hearing loss, mouth pain, mouth swelling, nasal discharge, nose bleeding, nose congestion, nose pain, photophobia, tearing, throat pain, throat swelling, voice changes, others Respiratory: denies: cough, hemoptysis, orthopnea, SOB at rest, shortness of breath, SOB with excertion, stridor, wheezing, others Cardiovascular: denies: chest pain, dizzy spells, diaphoresis, Dyspnea on exertion, edema, irregular heart beat, left arm pain, lightheadedness, palpitations, PND, syncope, others Gastrointestinal: reports: abdominal pain, nausea, vomiting; denies: abdomen distended, blood streaked bowels, constipated, diarrhea, dysphagia, difficulty swallowing, hematemesis, melena, poor appetite, poor fluid intake, rectal bleeding, rectal pain, others Genitourinary: denies: burning, dysuria, flank pain, frequency, hematuria, incontinence, penile discharge, penile sore, pain, testicle pain, testicle swelling, urgency, others Neurological: denies: dizziness, fainting, headache, left sided numbness, left sided weakness, numbness, paresthesia, pre-existing deficit, right sided numbness, right sided weakness, seizure, speech problems, tingling, tremors, weakness, others Musculoskeletal: denies: back pain, gout, joint pain, joint swelling, muscle pain, muscle stiffness, neck pain, others Integumetry: denies: bruises, change in color, change in hair/nails, dryness, laceration, lesions, lumps, rash, wounds, others Allergic/Immunocompromised: denies: Difficulty Healing, Frequent Infections, Hives, Itching, others Hematologic/Lymphatic: denies: anemia, blood clots, easy bleeding, easy bruising, swollen glands, others Endocrine: denies: excessive hunger, excessive sweating, excessive thirst, excessive urination, flushing, intolerance to cold, intolerance to heat, unexplained weight gain, unexplained weight loss, others Psychiatric: denies: anxiety, bipolar disorder, depression, hopeless, panic disorder, schizophrenia, sleepless, suicidal, others All Other Systems: Reviewed and Negative Physical Exam General Appearance: Moderate Distress HEENT: Normal ENT Inspection, Pharynx Normal, TMs Normal Neck: Full Range of Motion, Non-Tender, Normal, Normal Inspection Respiratory: Chest Non-Tender, Lungs Clear, No Accessory Muscle Use, No Respiratory Distress, Normal Breath Sounds Cardiovascular: No Edema, No JVD, No Murmur, No Gallop, Normal Peripheral Pulses, Regular Rate/Rhythm Breast Exam: Deferred Gastrointestinal: Epigastric, No Organomegaly, No Pulsatile Mass, Normal Bowel Sounds, Soft, Tenderness Genitalia: Deferred Pelvic: Deferred Rectal: Deferred Extremities: No calf tenderness, Normal capillary refill, No pedal edema Musculoskeletal : Apperance: Normal Neurologic: Alert, instructional interventionist II-XII nml as Tested, No Motor Deficits, Normal Affect, Normal Mood, No Sensory Deficits Cerebellar Function: Normal Reflexes: Normal Skin: Dry, Normal Color, Warm Lymphatic: No Adenopathy Was a procedure done? Was a procedure done?: No GI differential Dx Differential Diagnosis: Appendicitis, Gastritis/PUD, Gastroenteritis, Pancreatitis, Electrolyte Imbalance, Food Poisoning X-Ray, Labs, Meds, VS Vital Signs Date Time Temp Pulse Resp B/P (MAP) Pulse Ox O2 Delivery O2 Flow Rate FiO2 11/07/24 10:10 97.5 54 17 137/77 (97) 96 97.5 Lab Test 11/07/24 10:56 11/07/24 10:17 Range/Units White Blood Count 7.7 4.4-10.8 10^3/uL Red Blood Count 4.84 4.5-5.90 10^6/uL Hemoglobin 15.1 13.5-17.5 g/dL Hematocrit 44.5 41.0-53.0 % Mean Corpuscular Volume 92.0 80.0-100.0 fL Mean Corpuscular Hemoglobin 31.1 28.0-32.0 pg Mean Corpuscular Hemoglobin Concent 33.8 32.0-36.0 g/dL Red Cell Distribution Width 15.7 H 11.8-14.3 % Platelet Count 229 140-450 10^3/uL Mean Platelet Volume 8.3 6.9-10.8 fL Neutrophils (%) (Auto) 85.6 H 37.0-80.0 % Lymphocytes (%) (Auto) 8.9 L 10.0-50.0 % Monocytes (%) (Auto) 5.4 0.0-12.0 % Eosinophils (%) (Auto) 0.0 0.0-7.0 % Basophils (%) (Auto) 0.1 0.0-2.0 % Neutrophils # (Auto) 6.6 1.6-8.6 10 ^3/uL Lymphocytes # (Auto) 0.7 0.4-5.4 10 ^3/uL Monocytes # (Auto) 0.4 0-1.3 10 ^3/uL Eosinophils # (Auto) 0 0-0.8 10 ^3/uL Basophils # (Auto) 0 0-0.2 10 ^3/uL Nucleated Red Blood Cells 0.1 % Sodium Level 142 136-145 mmol/L Potassium Level 4.6 3.5-5.1 mmol/L Chloride Level 104 98-107 mmol/L Carbon Dioxide Level 28 20-31 mmol/L Anion Gap 10 5-15 Blood Urea Nitrogen 14 9-23 mg/dL Creatinine 0.84 0.700-1.30 mg/dL Glomerular Filtration Rate Calc 89 >90 mL/min BUN/Creatinine Ratio 16.7 10.0-20.0 Serum Glucose 150 H 74-106 mg/dL Calcium Level 9.9 8.7-10.4 mg/dL Total Bilirubin 3.5 H 0.2-1.0 mg/dL Aspartate Amino Transferase (AST) 329 H <34 U/L Alanine Aminotransferase (ALT) 281 H 7-40 U/L Alkaline Phosphatase 453 H 46-116 U/L Total Protein 7.7 5.7-8.2 g/dL Albumin 4.8 3.2-4.8 g/dL Lipase 2291 H 12-53 U/L Urine Color Yellow Yellow Urine Clarity Clear Clear Urine pH 5.0 5.0-9.0 Urine Specific [place] 1.027 1.001-1.035 Urine Protein Negative Negative Urine Ketones 2+ H Negative Urine Blood Negative Negative /uL Urine Nitrite Negative Negative Urine Bilirubin Negative Negative Urine Urobilinogen Normal Negative mg/dL Urine Leukocyte Esterase Negative Negative /uL Urine RBC 2 0 - 3 /hpf Urine Microscopic WBC 1 0-3 /HPF Urine Squamous Epithelial Cells Few <5 /hpf Urine Bacteria None seen None Seen /hpf Urine Hyaline Casts Few 0 - 2 /lpf Urine Mucus Few None Seen Urine Glucose Normal Normal mg/dL Ultrasound of the gallbladder shows: IMPRESSION: Cholelithiasis. Hepatic steatosis. The urine test is negative for UTI The lipase is elevated at 2291 The liver enzymes are also elevated The patient's CBC is within normal limits The chemistry panel is within normal limits At this time, the patient will be admitted to the hospitalist An IV Hep-Lock was established and the patient is being given normal saline The patient is being given morphine for the pain The patient is given Protonix 40 mg IV push The patient is given Zofran 40 mg IV push The patient is being admitted and a GI consult will be obtained Initially it was determined that the patient's gallbladder was removed but now we have repeated the ultrasound and it does indeed seem like the patient has either remnants or his full gallbladder Images Reviewed?: Images reviewed and evaluated by me Time of 1ST Reevaluation: 11:50 Reevaluation 1ST: Unchanged Patient Education/Counseling: Diagnosis, Treatment, Prognosis Family Education/Counseling: Diagnosis, Treatment, Prognosis Additional Information Reviewed patient's previous visit(s): 08/01/24 for gallbladder disease The following tests were ordered, and results were reviewed by me: CBC, CMP, UA, Lipase, Gallbladder US, Liver US Additional information was gathered from interviewing the following independent historian: I reviewed and agreed with the following test results read by other provider: Gallbladder US, Liver US I discussed treatments and results with medical personnel and: PATIENT and Comprehensive systems review obtained and negative except for what is stated in the HPI. SEPSIS Sepsis Screen Physician Orders Heplock Iv (11/07/24 10:18) Fence Builder (11/07/24 10:18) Blood Pressure (11/07/24 10:18) Pulse Oximetry (11/07/24 10:18) LIVER (11/07/24 10:18) Vital Signs Date Time Temp Pulse Resp B/P (MAP) Pulse Ox O2 Delivery O2 Flow Rate FiO2 11/07/24 10:10 97.5 54 17 137/77 (97) 96 97.5 Laboratory Tests Test 11/07/24 10:56 White Blood Count 7.7 10^3/uL (4.4-10.8) Departure 1 Departure Time of Disposition: 11:50 Impression: Primary Impression: Intractable abdominal pain Additional Impressions: Cholecystitis, acute with cholelithiasis Qualified Codes: K80.00 - Calculus of gallbladder with acute cholecystitis without obstruction Acute pancreatitis Qualified Codes: K85.90 - Acute pancreatitis without necrosis or infection, unspecified Intractable vomiting Disposition: ADMITTED INPATIENT Admit to: [facility] Condition: Fair Critical Care Note Critical Care Time?: No Stability Stability form required: Yes Unstable for transfer: Telemetry monitoring (Telemetry monitoring required), ED Physician Assesment (Clinical assesment) Heart Score Heart Score: Heart Score Response (Comments) Value History N/A 0 EKG N/A 0 Age N/A 0 Risk Factors N/A 0 Troponin N/A 0 Total 0 I personally scribed for ALON STOKES MD ([email or web address]) on 11/07/24 at 10:23. Electronically submitted by Otto Garza ([email or web address]). I personally scribed for ALON STOKES MD ([email or web address]) on 11/07/24 at 10:36. Electronically submitted by Otto Garza ([email or web address]). ALON STOKES MD Nov 07, 2024 10:23
--- NOTE | 2024-11-07 10:59 | DVH ---
INDICATION: pain TECHNIQUE: Multiple real-time sonographic images were obtained of the right upper quadrant. COMPARISON: US GALLBLADDER on DOS: 08/01/24 FINDINGS: The liver demonstrates increased echotexture without focal mass lesions. The liver measure s 15.6 cm. There is no intrahepatic or extrahepatic ductal dilatation. The common duct measures 0.5 cm. Cholelithiasis. The gallbladder wall measures 0.4 cm and is within normal limits. The right kidney measures 10.0 cm. The right kidney is normal in contour, size, and shape. The echoge nicity is normal. There is no hydronephrosis. The pancreas is not well visualized due to overlying bowel gas. IMPRESSION: Cholelithiasis. Hepatic steatosis.
[2024-11-07 11:22] LABS: Urine Protein, UAD Negative (Negative)
[2024-11-07 11:23] LABS: Hematocrit 44.5 % (41.0-53.0); Hemoglobin 15.1 g/dL (13.5-17.5); Mean Corpuscular Hemoglobin 31.1 pg (28.0-32.0); Mean Corpuscular Volume 92.0 fL (80.0-100.0); Nucleated Red Blood Cells % 0.1 %
[2024-11-07 11:26] LABS: Albumin 4.8 g/dL (3.2-4.8); Anion Gap 10 (5-15); BUN/Creatinine Ratio 16.7 (10.0-20.0); Blood Urea Nitrogen 14 mg/dL (9-23); Calcium 9.9 mg/dL (8.7-10.4); Carbon Dioxide 28 mmol/L (20-31); Chloride 104 mmol/L (98-107); Potassium 4.6 mmol/L (3.5-5.1); Sodium 142 mmol/L (136-145); Total Protein 7.7 g/dL (5.7-8.2)
[2024-11-07 11:27] LABS: Alanine Aminotransferase 281 U/L (7-40); Alkaline Phosphatase 453 U/L (46-116); Glucose 150 mg/dL (74-106)
[2024-11-07 11:28] LABS: Bilirubin, Total 3.5 mg/dL (0.2-1.0)
[2024-11-07 11:34] LABS: Lipase 2291 U/L (12-53)
[2024-11-07] MEDS: ONDANSETRON HCL 4 MG/2 ML VIAL IV ONE (16:02)
[2024-11-07] MEDS: MORPHINE SULFATE 4 MG/ML SYR/VIAL IV ONE (16:02)
[2024-11-07] MEDS: SODIUM CHLORIDE 0.9% 1,000 ML IVB ONE (16:09)
[2024-11-07] MEDS: PANTOPRAZOLE 40 MG/10 ML VIAL INJ IV ONE (16:21)
[2024-11-07 17:01] VITALS: PULSE 54; RESP 12; O2SAT 99
[2024-11-07] MEDS ORDERED: HYDROcodone-ACET 5/325MG TAB PO PRN (17:15)
[2024-11-07] MEDS ORDERED: ONDANSETRON HCL 4 MG/2 ML VIAL IV PRN (17:15)
[2024-11-07] MEDS ORDERED: ACETAMINOPHEN 325 MG TAB PO PRN (17:15)
[2024-11-07] MEDS ORDERED: NITROGLYCERIN 0.4 MG SL TAB SL PRN (17:15)
[2024-11-07] MEDS ORDERED: MORPHINE SULFATE INJ 2 MG/ml SYRG IV PRN (17:15)
--- NOTE | 2024-11-07 17:22 | DVHHP2 ---
History of Present Illness Reason for Visit: Abdominal pain nausea and vomiting for last two days History of Present Illness 79-year-old male with a known history of right lower extremity DVT currently on Eliquis last dose was yesterday evening, previous history of subtotal cholecystectomy, previous history of abdominal surgeries presented to the hospital with epigastric pain nausea and vomiting for last two days. Patient was found to have acute gallstone induced pancreatitis. Patient is currently complaining of minimal epigastric pain with the nausea denies any vomiting. GI: Other (Epigastric pain.) Hepatobiliary: Cholelithiasis Past Surgical History: Appendectomy, Cholecystectomy (Subtotal.), Hernia Repair Family History: None ALCOHOL: none Lives: with Family Review of Systems Review of Systems Twelve review of system are negative besides mentioned above. Allergies: Coded Allergies: NO KNOWN ALLERGIES (Unverified , 05/19/12) Medications Current Medications Medications Dose Ordered Sig/Marilyn Route Start Time Stop Time Status Last Admin Dose Admin Sodium Chloride 1,000 ml @ 120 mls/hr Q8H20M IV 11/07/24 17:15 UNV Acetaminophen/ Hydrocodone Bitart 1 tab Q4HP PRN PO 11/07/24 17:15 UNV Ondansetron HCl 4 mg Q4HP PRN IV 11/07/24 17:15 UNV Acetaminophen 650 mg Q6HP PRN PO 11/07/24 17:15 UNV Morphine Sulfate 2 mg Q4HPRN PRN IV 11/07/24 17:15 UNV Nitroglycerin 0.4 mg Q5MINP PRN SL 11/07/24 17:15 UNV Morphine Sulfate 2 mg Q30M PRN IV 11/07/24 17:15 UNV Enoxaparin Sodium 80 mg Q12HR SC 11/07/24 22:00 UNV Exam Vital Signs Vital Signs Date Time Temp Pulse Resp B/P (MAP) Pulse Ox O2 Delivery O2 Flow Rate FiO2 11/07/24 17:01 54 12 99 Room Air* 0 21 11/07/24 14:32 97.8 119/66 (83) 97.8 Exam HEENT pupils are reactive Neck is supple CV is S1-S2 regular rate and rhythm Respiratory are clear GI positive bowel sounds soft nondistended, mildly tender in epigastric region and left upper quadrant with a minimal guarding no rigidity Extremity no edema 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 no motor 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 Labs/Xrays Labs Test 11/07/24 10:56 11/07/24 10:17 Range/Units White Blood Count 7.7 4.4-10.8 10^3/uL Red Blood Count 4.84 4.5-5.90 10^6/uL Hemoglobin 15.1 13.5-17.5 g/dL Hematocrit 44.5 41.0-53.0 % Mean Corpuscular Volume 92.0 80.0-100.0 fL Mean Corpuscular Hemoglobin 31.1 28.0-32.0 pg Mean Corpuscular Hemoglobin Concent 33.8 32.0-36.0 g/dL Red Cell Distribution Width 15.7 H 11.8-14.3 % Platelet Count 229 140-450 10^3/uL Mean Platelet Volume 8.3 6.9-10.8 fL Neutrophils (%) (Auto) 85.6 H 37.0-80.0 % Lymphocytes (%) (Auto) 8.9 L 10.0-50.0 % Monocytes (%) (Auto) 5.4 0.0-12.0 % Eosinophils (%) (Auto) 0.0 0.0-7.0 % Basophils (%) (Auto) 0.1 0.0-2.0 % Neutrophils # (Auto) 6.6 1.6-8.6 10 ^3/uL Lymphocytes # (Auto) 0.7 0.4-5.4 10 ^3/uL Monocytes # (Auto) 0.4 0-1.3 10 ^3/uL Eosinophils # (Auto) 0 0-0.8 10 ^3/uL Basophils # (Auto) 0 0-0.2 10 ^3/uL Nucleated Red Blood Cells 0.1 % Sodium Level 142 136-145 mmol/L Potassium Level 4.6 3.5-5.1 mmol/L Chloride Level 104 98-107 mmol/L Carbon Dioxide Level 28 20-31 mmol/L Anion Gap 10 5-15 Blood Urea Nitrogen 14 9-23 mg/dL Creatinine 0.84 0.700-1.30 mg/dL Glomerular Filtration Rate Calc 89 >90 mL/min BUN/Creatinine Ratio 16.7 10.0-20.0 Serum Glucose 150 H 74-106 mg/dL Calcium Level 9.9 8.7-10.4 mg/dL Total Bilirubin 3.5 H 0.2-1.0 mg/dL Aspartate Amino Transferase (AST) 329 H <34 U/L Alanine Aminotransferase (ALT) 281 H 7-40 U/L Alkaline Phosphatase 453 H 46-116 U/L Total Protein 7.7 5.7-8.2 g/dL Albumin 4.8 3.2-4.8 g/dL Lipase 2291 H 12-53 U/L Urine Color Yellow Yellow Urine Clarity Clear Clear Urine pH 5.0 5.0-9.0 Urine Specific [place] 1.027 1.001-1.035 Urine Protein Negative Negative Urine Ketones 2+ H Negative Urine Blood Negative Negative /uL Urine Nitrite Negative Negative Urine Bilirubin Negative Negative Urine Urobilinogen Normal Negative mg/dL Urine Leukocyte Esterase Negative Negative /uL Urine RBC 2 0 - 3 /hpf Urine Microscopic WBC 1 0-3 /HPF Urine Squamous Epithelial Cells Few <5 /hpf Urine Bacteria None seen None Seen /hpf Urine Hyaline Casts Few 0 - 2 /lpf Urine Mucus Few None Seen Urine Glucose Normal Normal mg/dL Assessment/Plan Assessment/Plan 59-year-old male with a known history of DVT right lower extremity, history of back surgery, history of abdominal hernia surgery, history of subtotal cholecystectomy July of this year presented to the hospital with a nausea and vomiting epigastric pain found to have 1. Acute pancreatitis suspected gallstone induced 2. Cholelithiasis/with previous history of subtotal cholecystectomy 3. History of DVT right lower extremity currently on Eliquis 4. Transaminitis with elevated T bili and alkaline phosphatase rule out choledocholithiasis 5. Previous history of Burst appendix surgery -admit to telemetry strict NPO IV fluids IV pain meds -CT abdomen and pelvis noncontrast, MRCP GI consultation, General surgery consultation Plan discussed with: Patient, Spouse My Orders Orders - SULMA HOOKER MD Procedure Category Date Status Time Ct Ab Pel Wo Con-No CT 11/07/24 Taken Oral Or Iv 16:26 Rt Lower Dvt US 11/07/24 Logged 16:37 Admit ADMIT 11/07/24 Transmitted 17:06 Code Status CODE 11/07/24 Transmitted 17:06 Sodium Chloride 0.9% PHA 11/07/24 Logged 17:15 Hydrocodone-Acet PHA 11/07/24 Logged 5/325mg Tab ([place]liver 17:15 Ondansetron Hcl PHA 11/07/24 Logged (Zofran) 17:15 Complete Blood Count LAB 11/08/24 Verified 04:00 Comprehensive LAB 11/08/24 Verified Metabolic Panel 04:00 Npo (Nothing By DIET 11/07/24 Transmitted Mouth) Diet Dinner Condition: Stable MACI 11/07/24 In Process 17:06 Acetaminophen Tablet PHA 11/07/24 Logged (Tylenol Tablet) 17:15 Morphine Sulfate PHA 11/07/24 Logged Injection 17:15 Nitroglycerin PHA 11/07/24 Logged Sublingual (Ntrostat 17:15 Morphine Sulfate PHA 11/07/24 Logged Injection 17:15 Stat Ekg For Chest [facility]I 11/07/24 In Process Pain 17:06 Notify Of Changes [facility] 11/07/24 In Process From Base 17:06 Therapist For [facility] 11/07/24 In Process 24 Hours 17:06 Emergency Dysrhythmia [facility] 11/07/24 In Process Protocol 17:06 Rhythm Strips Once [facility] 11/07/24 In Process Every Shift 17:06 Oxygen By Nasal RT 11/07/24 Transmitted Cannula 17:06 * Surgical Consult CONS 11/07/24 Transmitted Amylase LAB 11/08/24 Verified 04:00 Lipase LAB 11/08/24 Verified 04:00 Mrcp Mri MRI 11/07/24 Logged 17:06 Enoxaparin Sodium PHA 11/07/24 Logged (Lovenox) 22:00 *[facility] CONS 11/07/24 Transmitted 17:14 Date of Service: Nov 07, 2024 Billing Provider: SULMA HOOKER MD Common Visit Codes: NOT BILLABLE SULMA HOOKER MD Nov 07, 2024 17:22
--- NOTE | 2024-11-07 17:26 | DVH ---
Exam: CT CT AB PEL WO CON-NO ORAL OR IV History: Abdominal pain Comparison Study: None TECHNIQUE: Multidetector CT of the abdomen and pelvis without IV contrast. Axial, coronal and sagitta l multiplanar reformats were obtained from the axial data set by the technologist. Radiation Dose Information: CT Dose: CTDI volume is 9.95 mGy. Dose-length product is 502.27 mGy*cm FINDINGS: Mild bibasilar fibrotic changes. Partially visualized heart is normal in size. Ectatic ascending aort a measuring up to 4.2 cm. Liver, spleen, and adrenal glands unremarkable. Peripancreatic fat stranding most prominent over the head. There appears to be calcification adjacent to the gallbladder may be from postsurgical changes. Punctate focus of a.m. between the gallbladder and the liver. Mild wall thickening of the gallbladde r with mild adjacent fat stranding. Kidneys, ureters and urinary bladder are unremarkable. Prostate measures 3.3 x 4.7 by 3.2 cm with cammie cification. Mild gastric wall thickening. Postsurgical changes of the right upper abdominal. Mild wall thickenin g of the proximal duodenum with fat stranding adjacent to the distal stomach and duodenum. The remainder of the small bowel loops are unremarkable. Appendix is not definitely visualized. Descending colon and Sigmoid diverticulosis without diverticul itis. Small to moderate amount of fecal material within the colon. Mild wall thickening of the ascen ding and transverse colon. No evidence of intraperitoneal free fluid. No evidence of aortic aneurysm. No significant lymphadenopathy. Postsurgical changes of the ventral upper abdomen with adjacent midline ventral upper to mid abdomina l wall fluid collection measuring up to 1.9 by 5.5 by 12 cm which may represent postoperative seroma. Mild infraumbilical fat stranding. Severe degenerative changes of bilateral hips. Posterior spinal f usion of L3-L5 with posterior laminectomy changes of L3-L4 and L4-L5. Chronic appearing minimal loss of vertebral body height of the lower thoracic spine. IMPRESSION: Peripancreatic fat stranding . Recommend correlation with lipase for possible acute pancreatitis. Mild wall thickening of the stomach and proximal duodenum with fat stranding adjacent to the distal s tomach and duodenal which may be associated with the pancreatitis with gastro duodenitis not excluded . There appears to be mild wall thickening of the gallbladder with pericholecystic edema which May be f rom the acute pancreatitis/gastro duodenitis. Punctate focus of air in between the gallbladder and th e liver. Finding may be associated with recent postsurgical changes with early emphysematous cholecys titis /perforated viscus not completely excluded. Consider right upper quadrant ultrasound for furthe r evaluation if clinically indicated. Punctate focus of air between the gallbladder and the liver with postsurgical changes of the right up per abdominal Mild wall thickening of the ascending and transverse colon which may be due to inadequate distention with mild Colitis not excluded. Postsurgical changes of the ventral upper abdomen with adjacent midline ventral upper to mid abdomina l wall fluid collection measuring up to 1.9 by 5.5 by 12 cm which may represent postoperative seroma.
[2024-11-07] MEDS: SODIUM CHLORIDE 0.9% 1,000 ML IV SCH (17:29)
--- NOTE | 2024-11-07 17:44 | DVH ---
Right lower extremity venous duplex Clinical History: history of dvt Comparison: US BILAT LOWER DVT on DOS: 08/04/24, US RT LOWER DVT on DOS: 04/26/23 Technique: Duplex Doppler evaluation of the deep venous system of the right lower extremity from the common femo ral vein to the popliteal vein including color Doppler and spectral/pulsed waveform analysis was perf ormed. Findings: Nonocclusive DVT seen in the superficial femoral vein and popliteal vein. The common femoral vein and saphenous veins are patent. The posterior tibial vein is patent Impression: 1. Nonocclusive DVT seen in the superficial femoral vein and popliteal vein
[2024-11-07 19:30] VITALS: PULSE 56; RESP 11; O2SAT 99
[2024-11-07] MEDS: ENOXAPARIN SOD 80 MG/0.8ML SYRINGE SC SCH (21:47)
[2024-11-07 22:00] VITALS: BP 132/82; PULSE 58; RESP 20; TEMP 98.4; O2SAT 97
[2024-11-07 22:34] VITALS: BP 132/82; PULSE 58; RESP 20; TEMP 98.4; O2SAT 97
[2024-11-07 23:28] VITALS: PULSE 57; RESP 18; O2SAT 98
[2024-11-08] VITALS (8 sets, daily range): BP systolic 117–135; BP diastolic 59–80; PULSE 43–60; RESP 18–19; TEMP 97.4–98.1; O2SAT 93–98
[2024-11-08 06:01] LABS: Hematocrit 41.2 % (41.0-53.0); Hemoglobin 13.9 g/dL (13.5-17.5); Mean Corpuscular Hemoglobin 31.3 pg (28.0-32.0); Mean Corpuscular Volume 92.9 fL (80.0-100.0); Nucleated Red Blood Cells % 0.0 %
[2024-11-08 06:23] LABS: Albumin 4.0 g/dL (3.2-4.8); Anion Gap 10 (5-15); BUN/Creatinine Ratio 13.4 (10.0-20.0); Blood Urea Nitrogen 11 mg/dL (9-23); Calcium 9.1 mg/dL (8.7-10.4); Carbon Dioxide 27 mmol/L (20-31); Chloride 107 mmol/L (98-107); Glucose 95 mg/dL (74-106); Potassium 3.7 mmol/L (3.5-5.1); Sodium 144 mmol/L (136-145); Total Protein 6.5 g/dL (5.7-8.2)
[2024-11-08 06:25] LABS: Alanine Aminotransferase 237 U/L (7-40); Alkaline Phosphatase 441 U/L (46-116); Amylase 218 U/L (30-118); Bilirubin, Total 5.6 mg/dL (0.2-1.0); Lipase 81 U/L (12-53)
--- NOTE | 2024-11-08 09:31 | DVH ---
MRI ABDOMEN TO INCLUDE MRCP WITHOUT CONTRAST: HISTORY: Rule out choledocholithiasis. COMPARISON: MRI MRCP MRI on DOS: 08/02/24 CONTRAST: None. TECHNIQUE: Multiplanar multi sequence MRI performed of the upper abdomen. MRCP sequences performed.3- D MRCP sequence generated at the scanner console from the source data. FINDINGS: Sensitivity and specificity are diminished in the absence of intravenous contrast. Trace right pleural effusions. Limited evaluation of the T2 MIPS in the setting of motion. There are numerous layering gallstones with associated gallbladder wall thickening in and adjacent in flammatory change. No biliary ductal dilation within the limits of motion and periportal edema. No fi lling defects within the common bile duct. There is inflammatory change surrounding the pancreatic head and 2nd portion of the duodenum with flu id and inflammatory change tracking along the right retroperitoneum. Pancreatic duct is within normal limits. The spleen kidneys, and adrenal glands are unremarkable. The abdominal area is normal caliber. The im aged ball is unremarkable. Status post posterior screw fixation of L3-L5. There is trace perihepatic and perisplenic ascites. The liver is normal in size. There is periportal edema. IMPRESSION: 1. Calculus cholecystitis 2. No evidence of choledocholithiasis 3. Findings suspicious for groove pancreatitis 4. Trace ascites and effusions 5. Periportal edema which may be related to patients volume status
--- NOTE | 2024-11-08 12:41 | DVHINCON2 ---
DATE OF CONSULTATION: 11/08/2024 GASTROENTEROLOGY CONSULTATION: REFERRING PHYSICIAN: Dr. Perico Julio. REASON FOR CONSULTATION: Management of suspected gallstone pancreatitis. HISTORY OF PRESENT ILLNESS: The patient is a 79-year-old male with a past medical history significant for right lower extremity DVT on Eliquis and prior history of subtotal cholecystectomy and appendectomy, admitted for evaluation of acute onset abdominal pain. The patient states he "ate very badly this past Wednesday," in which he had [place] food in the morning in addition to ice cream and other fatty foods. Pain began late Wednesday into Wednesday and Wednesday. It worsened, prompting his admission to the ER. On arrival to the hospital, the patient was found to have a completely normal CBC. Basic metabolic panel was relevant for a serum lipase of 2291, alkaline phosphatase 453, ALT 281, AST 329, total bilirubin 3.5. CT of the abdomen showed peripancreatic stranding, mild wall thickening of the stomach and proximal duodenum, wall thickening of the gallbladder with pericholecystic edema and mild wall thickening of the ascending and transverse colon. No prior history of pancreatitis. Denies any history of alcoholism or hyperlipidemia. Denies any new prescription medications. No family history of pancreatic malignancy. The patient denies fevers or chills. Gastroenterology service has been asked to provide input regarding his symptoms. DRUG ALLERGIES: None listed. HOME MEDICATIONS: On admission, he is on Eliquis, cefdinir, finasteride, hydrocodone, lactulose, naloxone and tamsulosin. PAST MEDICAL HISTORY: Significant for right lower extremity DVT, on Eliquis. The patient also has benign prostatic hyperplasia. PAST SURGICAL HISTORY: Complicated, he had a history of an emergent appendectomy with very difficult postoperative course. History of prior subtotal cholecystectomy. SOCIAL HISTORY: Denies drugs, alcohol, tobacco. FAMILY HISTORY: Noncontributory. REVIEW OF SYSTEMS: A 12-point review of systems is limited, but as stated above in the HPI. PHYSICAL EXAMINATION: VITAL SIGNS: Temperature 98, heart rate 52, respirations 18, blood pressure 131/80, O2 saturation 96%. GENERAL: This is a 79-year-old male who is in no acute distress, resting comfortably. Alert and oriented x 3. HEENT: Unremarkable. CARDIOVASCULAR EXAM: Regular rhythm. RESPIRATORY EXAM: Clear to auscultation. GASTROINTESTINAL: Soft, nontender, and nondistended. EXTREMITIES: No clubbing, no cyanosis or edema. LABORATORY EXAM: Basic metabolic panel shows normal electrolytes and renal function. Total bilirubin 5.6, AST 200, ALT 237, alkaline phosphatase 441, protein 6.5, albumin 4.0, amylase 218, lipase 81. CBC is within normal limits. IMAGING STUDIES: Include abdominal ultrasound as well as CT that confirmed cholelithiasis and gallbladder wall thickening. ASSESSMENT: * Suspected gallstone pancreatitis. * Transaminitis. We will need to rule out choledocholithiasis. * History of cholelithiasis status post subtotal cholecystectomy. * History of right lower extremity DVT, on Eliquis. RECOMMENDATIONS: * MRCP. * If MRCP is positive for common bile duct stones, the patient will need to be transferred to a higher level of care for diagnostic ERCP and stone extraction after resolution of pancreatitis. * If MRCP is unremarkable, the patient will need to be referred to General Surgery for complete cholecystectomy. * In the interim, continue IV antibiotics, pain control, IV fluid hydration, and continue on Eliquis for now. DO PAT Berg/TAYLA/FREDERIC TID: [id number] RECEIPT: [id number]
--- NOTE | 2024-11-08 15:39 | DVHINCON2 ---
Date of service: Nov 08, 2024 Family History: Alzheimer's disease G8 MOTHER FH: cancer G8 FATHER Allergies: Coded Allergies: NO KNOWN ALLERGIES (Unverified , 05/19/12) Home Meds Active Scripts Lactulose (Lactulose) 10 Gm/15 Ml Adali, 20 GM PO Q8HPRN PRN, #240 ML Prov:RITU BALDWIN MD 08/08/24 Cefdinir (Cefdinir) 300 Mg Cap, 1 CAP PO BID, #10 CAP Prov:RITU BALDWIN MD 08/08/24 Naloxone HCl (Narcan) 4 Mg/0.1 Ml Spr, 4 MG NA Q5MP PRN, #1 SPRAY Prov:RITU BALDWIN MD 08/08/24 Hydrocodone-Acetaminophen (Hydrocodone Bitartrate/AC 5-325 mg) 1 Tab Tab, 1 TAB PO Q6HPRN PRN, #14 TAB Prov:RITU BALDWIN MD 08/08/24 Apixaban Base (ELIQUIS) 5 Mg Tab, 5 MG PO BID, #120 TAB Take 2 tablets (10mg) twice a day for fisrt 10 days then take 1 tablet (5mg) twice a day Prov:RITU BALDWIN MD 04/26/23 Reported Medications Finasteride (Finasteride) 5 Mg Tab, 5 MG PO, TAB 10/31/20 Tamsulosin Hcl (Tamsulosin Hcl) 0.4 Mg Cap, 0.4 MG PO, CAP 10/31/20 Current Medications Current Medications Medications (Trade) Dose Ordered Sig/Marilyn Route PRN Reason Start Time Stop Time Status Last Admin Sodium Chloride 1,000 ml @ 120 mls/hr Q8H20M IV 11/07/24 17:15 11/08/24 06:32 Acetaminophen/ Hydrocodone Bitart ([place] 5/325MG Tab) 1 tab Q4HP PRN PO MODERATE PAIN (4-6 PAIN SCALE) 11/07/24 17:15 Hold Ondansetron HCl (Zofran) 4 mg Q4HP PRN IV NAUSEA / VOMITING 11/07/24 17:15 Acetaminophen (Tylenol Tablet) 650 mg Q6HP PRN PO PAIN SCALE 1-3 OR TEMP>100.4 11/07/24 17:15 Hold Morphine Sulfate 2 mg Q4HPRN PRN IV SEVERE PAIN (7-10 PAIN SCALE) 11/07/24 17:15 Nitroglycerin (Ntrostat Sublingual) 0.4 mg Q5MINP PRN SL FOR CHEST PAIN 11/07/24 17:15 Morphine Sulfate 2 mg Q30M PRN IV FOR CHEST PAIN 11/07/24 17:15 Enoxaparin Sodium (Lovenox) 80 mg Q12HR SC 11/07/24 22:00 11/08/24 09:41 Vital Signs Vital Signs Date Time Temp Pulse Resp B/P (MAP) Pulse Ox O2 Delivery O2 Flow Rate FiO2 11/08/24 12:42 98.1 47 19 117/59 (78) 94 98.1 11/08/24 08:00 Room Air* 0 21 Labs/Diagnostic Data Labs Test 11/08/24 05:29 11/07/24 10:17 Range/Units White Blood Count 8.1 4.4-10.8 10^3/uL Red Blood Count 4.44 L 4.5-5.90 10^6/uL Hemoglobin 13.9 13.5-17.5 g/dL Hematocrit 41.2 41.0-53.0 % Mean Corpuscular Volume 92.9 80.0-100.0 fL Mean Corpuscular Hemoglobin 31.3 28.0-32.0 pg Mean Corpuscular Hemoglobin Concent 33.7 32.0-36.0 g/dL Red Cell Distribution Width 15.4 H 11.8-14.3 % Platelet Count 200 140-450 10^3/uL Mean Platelet Volume 8.3 6.9-10.8 fL Neutrophils (%) (Auto) 78.4 37.0-80.0 % Lymphocytes (%) (Auto) 10.8 10.0-50.0 % Monocytes (%) (Auto) 9.6 0.0-12.0 % Eosinophils (%) (Auto) 1.0 0.0-7.0 % Basophils (%) (Auto) 0.2 0.0-2.0 % Neutrophils # (Auto) 6.4 1.6-8.6 10 ^3/uL Lymphocytes # (Auto) 0.9 0.4-5.4 10 ^3/uL Monocytes # (Auto) 0.8 0-1.3 10 ^3/uL Eosinophils # (Auto) 0.1 0-0.8 10 ^3/uL Basophils # (Auto) 0 0-0.2 10 ^3/uL Nucleated Red Blood Cells 0.0 % Sodium Level 144 136-145 mmol/L Potassium Level 3.7 3.5-5.1 mmol/L Chloride Level 107 98-107 mmol/L Carbon Dioxide Level 27 20-31 mmol/L Anion Gap 10 5-15 Blood Urea Nitrogen 11 9-23 mg/dL Creatinine 0.82 0.700-1.30 mg/dL Glomerular Filtration Rate Calc 90 >90 mL/min BUN/Creatinine Ratio 13.4 10.0-20.0 Serum Glucose 95 74-106 mg/dL Calcium Level 9.1 8.7-10.4 mg/dL Total Bilirubin 5.6 H 0.2-1.0 mg/dL Aspartate Amino Transferase (AST) 200 H <34 U/L Alanine Aminotransferase (ALT) 237 H 7-40 U/L Alkaline Phosphatase 441 H 46-116 U/L Total Protein 6.5 5.7-8.2 g/dL Albumin 4.0 3.2-4.8 g/dL Amylase Level 218 H 30-118 U/L Lipase 81 H 12-53 U/L Urine Color Yellow Yellow Urine Clarity Clear Clear Urine pH 5.0 5.0-9.0 Urine Specific [place] 1.027 1.001-1.035 Urine Protein Negative Negative Urine Ketones 2+ H Negative Urine Blood Negative Negative /uL Urine Nitrite Negative Negative Urine Bilirubin Negative Negative Urine Urobilinogen Normal Negative mg/dL Urine Leukocyte Esterase Negative Negative /uL Urine RBC 2 0 - 3 /hpf Urine Microscopic WBC 1 0-3 /HPF Urine Squamous Epithelial Cells Few <5 /hpf Urine Bacteria None seen None Seen /hpf Urine Hyaline Casts Few 0 - 2 /lpf Urine Mucus Few None Seen Urine Glucose Normal Normal mg/dL Assessment 11/09/24 only patient's records and imaging were reviewed, patient not examined: he had an operation at this facility by surgeon Dr.Mitesh Woodard about 3 months ago,The operative report from that operation was reviewed in detail,the patient apparently gonzalez an abdominal cavity obliterated by adhesions from prior operations and the surgeon was only able to do a "partial cholecystectomy", now the patient presents with abdominal pain and hyperbilirubinemia with ultrasound documented cholelithiasis and cholecystitis. MRCP was obtained showing portal edema and no obvious common bile duct stones. The patients serum bilirubin is too high to assume it is only due to uncomplicated cholecystitis and I feel he needs an ERCP to fully rule out a common bile duct problems prior to a cholecystectomy. I was told [place] Dr. Kinsey [place] and we do not have ERCP available at this facility, for this reason I believe the patient needs a higher level of care to have pre-operative ERCP.As his white count is normal and vital signs are stable i do not believe there is an indication for emergency surgical intervention. Plan discussed with: Other CRISTY IRBY MD Nov 08, 2024 15:39
--- NOTE | 2024-11-08 16:51 | DVHPN2 ---
Subjective Overnight events noted. Patient has stated that she is feeling much better lipase is trended down. LFTs are still high. MRCP is negative for any CBD stones. Facial General surgery note reviewed who recommended higher level of care for ERCP, discussed with the GI who stated that MRCP is negative. TB liquid be high because of acute cholecystitis because of severe information. We will get 2nd opinion from the general surgery. 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 BOW MAKER no motor deficit Medications Current Medications Medications Dose Ordered Sig/Marilyn Route Start Time Stop Time Status Last Admin Dose Admin Sodium Chloride 1,000 ml @ 120 mls/hr Q8H20M IV 11/07/24 17:15 11/08/24 06:32 120 MLS/HR Acetaminophen/ Hydrocodone Bitart 1 tab Q4HP PRN PO 11/07/24 17:15 Hold Ondansetron HCl 4 mg Q4HP PRN IV 11/07/24 17:15 Acetaminophen 650 mg Q6HP PRN PO 11/07/24 17:15 Hold Morphine Sulfate 2 mg Q4HPRN PRN IV 11/07/24 17:15 Nitroglycerin 0.4 mg Q5MINP PRN SL 11/07/24 17:15 Morphine Sulfate 2 mg Q30M PRN IV 11/07/24 17:15 Enoxaparin Sodium 80 mg Q12HR SC 11/07/24 22:00 11/08/24 09:41 80 MG Laboratory Results Laboratory Tests 11/08/24 05:29 Chemistry Test 11/08/24 05:29 Albumin 4.0 g/dL (3.2-4.8) Calcium Level 9.1 mg/dL (8.7-10.4) Total Protein 6.5 g/dL (5.7-8.2) Lipid panel Test 11/08/24 05:29 Lipase 81 U/L (12-53) H LFT Test 11/08/24 05:29 Alanine Aminotransferase (ALT) 237 U/L (7-40) H Alkaline Phosphatase 441 U/L (46-116) H Aspartate Amino Transferase (AST) 200 U/L (<34) H Total Bilirubin 5.6 mg/dL (0.2-1.0) H Urinalysis Test 11/07/24 10:17 Urine Color Yellow (Yellow) Urine Clarity Clear (Clear) Urine pH 5.0 (5.0-9.0) Urine Specific [place] 1.027 (1.001-1.035) Urine Protein Negative (Negative) Urine Ketones 2+ (Negative) H Urine Blood Negative /uL (Negative) Urine Nitrite Negative (Negative) Urine Bilirubin Negative (Negative) Urine Urobilinogen Normal mg/dL (Negative) Urine Leukocyte Esterase Negative /uL (Negative) Urine RBC 2 /hpf (0 - 3) Urine Microscopic WBC 1 /HPF (0-3) Urine Squamous Epithelial Cells Few /hpf (<5) Urine Bacteria None seen /hpf (None Seen) Urine Hyaline Casts Few /lpf (0 - 2) Urine Mucus Few (None Seen) Urine Glucose Normal mg/dL (Normal) Assessment/Plan Assessment/Plan 59-year-old male with a known history of DVT right lower extremity, history of back surgery, history of abdominal hernia surgery, history of subtotal cholecystectomy July of this year presented to the hospital with a nausea and vomiting epigastric pain found to have 1. Acute pancreatitis suspected gallstone induced 2. Cholelithiasis/with previous history of subtotal cholecystectomy , now acute cholecystitis 3. History of DVT right lower extremity on Eliquis which will be currently on hold 4. Transaminitis with elevated T bili and alkaline phosphatase ruled out choledocholithiasis by negative MRCP -strict NPO IV fluids IV pain meds MRCP negative for choledocholithiasis GI consultation appreciated who does not recommend an ERCP as MRCP is negative., General surgery consultation Dr. Adrian is recommending ERCP- -second opinion from General surgery Dr. Rqauel Witt-. Plan of care discussed with the patient at bedside who understand verbalized the understanding and agreeable to plan Plan discussed with: Patient My Orders Orders - SULMA HOOKER MD Procedure Category Date Status Time Admit ADMIT 11/07/24 Transmitted 17:06 Code Status CODE 11/07/24 Transmitted 17:06 Sodium Chloride 0.9% PHA 11/07/24 In Process 17:15 Hydrocodone-Acet PHA 11/07/24 In Process 5/325mg Tab ([place] 17:15 Ondansetron Hcl PHA 11/07/24 In Process (Zofran) 17:15 Npo (Nothing By DIET 11/07/24 Transmitted Mouth) Diet Dinner Condition: Stable MACI 11/07/24 In Process 17:06 Acetaminophen Tablet PHA 11/07/24 In Process (Tylenol Tablet) 17:15 Morphine Sulfate PHA 11/07/24 In Process Injection 17:15 Nitroglycerin PHA 11/07/24 In Process Sublingual (Ntrostat 17:15 Morphine Sulfate PHA 11/07/24 In Process Injection 17:15 Stat Ekg For Chest MACI 11/07/24 In Process Pain 17:06 Notify Md Of Changes MACI 11/07/24 In Process From Base 17:06 Dioramist For MACI 11/07/24 In Process 24 Hours 17:06 Emergency Dysrhythmia MACI 11/07/24 In Process Protocol 17:06 Rhythm Strips Once MACI 11/07/24 In Process Every Shift 17:06 Oxygen By Nasal RT 11/07/24 Transmitted Cannula 17:06 * Surgical Consult CONS 11/07/24 Transmitted *[facility] CONS 11/07/24 Transmitted 17:14 Enoxaparin Sodium PHA 11/07/24 In Process (Lovenox) 22:00 * Testing Projects Administrator CONS 11/07/24 Transmitted Consult Mrcp Mri MRI 11/08/24 Resulted 17:06 * Cardiology Consult CONS 11/08/24 Transmitted 14:37 Date of Service: Nov 08, 2024 Billing Provider: SULMA HOOKER MD Common Visit Codes: NOT BILLABLE SULMA HOOKER MD Nov 08, 2024 16:50
--- NOTE | 2024-11-08 18:06 | DVHINCON2 ---
Date Seen: Nov 08, 2024 Referring Physician MD Sumanth Reason for Consultation Bradycardia History of Present Illness This is a pleasant 79-year-old man who presented to the emergency room with a chief complaint of abdominal pain since Wednesday. The patient complains of the abdominal pain to the epigastric area associated with nausea, vomiting, and chills. During admission the patient was noted to be bradycardia with a heart rate as low as 34 bpm prompting cardiology evaluation. Twelve lead electrocardiogram reviewed revealing a sinus bradycardia rhythm with a associated first-degree atrioventricular block. tube cleaning operator reviewed showing an intermittent complete heart block and second-degree atrioventricular block type I. The patient denies any dizziness, visual disturbances, syncope, MUSTFAA, generalized weakness, increased fatigue, SOB, or chest discomfort. Home medications reviewed over the phone with and do not include AV chalo blocking agents. Significant medical history includes benign prostatic hyperplasia, history of right lower extremity DVT on 2022 with current Eliquis therapy, and hard of hearing. Past Medical History Past medical history reviewed. No other significant than mentioned above. Past Surgical History Cholecystectomy, 07/2024 Appendectomy Hernia repair Bilateral knees Back/spine Eye Family History: Alzheimer's disease G8 MOTHER FH: cancer G8 FATHER Family History Family history reviewed. Social History Denies the use of illicit drugs, alcohol, or tobacco use. Allergies: Coded Allergies: NO KNOWN ALLERGIES (Unverified , 05/19/12) Home Meds Active Scripts Lactulose (Lactulose) 10 Gm/15 Ml Adali, 20 GM PO Q8HPRN PRN, #240 ML Prov:RITU BALDWIN MD 08/08/24 Cefdinir (Cefdinir) 300 Mg Cap, 1 CAP PO BID, #10 CAP Prov:RITU BALDWIN MD 08/08/24 Naloxone HCl (Narcan) 4 Mg/0.1 Ml Spr, 4 MG NA Q5MP PRN, #1 SPRAY Prov:RITU BALDWIN MD 08/08/24 Hydrocodone-Acetaminophen (Hydrocodone Bitartrate/AC 5-325 mg) 1 Tab Tab, 1 TAB PO Q6HPRN PRN, #14 TAB Prov:RITU BALDWIN MD 08/08/24 Apixaban Base (ELIQUIS) 5 Mg Tab, 5 MG PO BID, #120 TAB Take 2 tablets (10mg) twice a day for fisrt 10 days then take 1 tablet (5mg) twice a day Prov:RITU BALDWIN MD 04/26/23 Reported Medications Finasteride (Finasteride) 5 Mg Tab, 5 MG PO, TAB 10/31/20 Tamsulosin Hcl (Tamsulosin Hcl) 0.4 Mg Cap, 0.4 MG PO, CAP 10/31/20 Home Meds Home medications reviewed. Current Medications Current Medications Medications (Trade) Dose Ordered Sig/Marilyn Route PRN Reason Start Time Stop Time Status Last Admin Enoxaparin Sodium (Lovenox) 80 mg Q12HR SC 11/07/24 22:00 11/08/24 09:41 Piperacillin Sod/ Tazobactam Sod 100 ml @ 25 mls/hr Q8H IV 11/08/24 22:00 Review of Systems Constitutional: Chills Ears, Nose, & Throat: No symptom reported Eyes: No symptom reported Neurological: No symptoms reported Pulmonary/Respiratory: No symptom reported Cardiovascular: No symptom reported Gastrointestinal: Abdominal pain, N/V Genitourinary: No symptom reported Musculoskeletal: No symptom reported Skin: No symptom reported Psychiatric: No symptom reported Endocrine: No symptom reported Hemotologic/Lymphatic: No symptom reported Vital Signs Vital Signs Date Time Temp Pulse Resp B/P (MAP) Pulse Ox O2 Delivery O2 Flow Rate FiO2 11/08/24 16:56 98.0 43 19 133/70 (91) 93 98.0 11/08/24 08:00 Room Air* 0 21 Physical Exam General Appearance: Cooperative. Well developed. Well nourished. In no acute distress Head Exam: Normal inspection Neck Exam: Normal inspection. Non-tender. Normal alignment Pulmonary/Respiratory: Chest non-tender. Clear bilateral breath sounds Cardiovascular/Chest: Regular rate and rhythm. S1, S2. Intermittent complete AV block. No murmurs. No JVD. Peripheral Pulses: 2+ Radial (R). 2+ Radial (L). 2+ Pedal (R). 2+ Pedal (L) Abdominal Exam: Normal bowel sounds. Soft. Tender. No hepatospenomegaly. No masses Ankle Exam: Negative ankle edema Lower extremities: Negative lower extremity edema Neuro/Mental Status: A&O x4. Coherent Thoughts/Psych: Normal thought pattern. Appropriate mood and affect. Good judgement and insight Appearance: In no acute distress Skin Exam: Normal inspection. Normal color. Warm. Dry Labs/Diagnostic Data Labs Test 11/08/24 05:29 11/07/24 10:17 Range/Units White Blood Count 8.1 4.4-10.8 10^3/uL Red Blood Count 4.44 L 4.5-5.90 10^6/uL Hemoglobin 13.9 13.5-17.5 g/dL Hematocrit 41.2 41.0-53.0 % Mean Corpuscular Volume 92.9 80.0-100.0 fL Mean Corpuscular Hemoglobin 31.3 28.0-32.0 pg Mean Corpuscular Hemoglobin Concent 33.7 32.0-36.0 g/dL Red Cell Distribution Width 15.4 H 11.8-14.3 % Platelet Count 200 140-450 10^3/uL Mean Platelet Volume 8.3 6.9-10.8 fL Neutrophils (%) (Auto) 78.4 37.0-80.0 % Lymphocytes (%) (Auto) 10.8 10.0-50.0 % Monocytes (%) (Auto) 9.6 0.0-12.0 % Eosinophils (%) (Auto) 1.0 0.0-7.0 % Basophils (%) (Auto) 0.2 0.0-2.0 % Neutrophils # (Auto) 6.4 1.6-8.6 10 ^3/uL Lymphocytes # (Auto) 0.9 0.4-5.4 10 ^3/uL Monocytes # (Auto) 0.8 0-1.3 10 ^3/uL Eosinophils # (Auto) 0.1 0-0.8 10 ^3/uL Basophils # (Auto) 0 0-0.2 10 ^3/uL Nucleated Red Blood Cells 0.0 % Sodium Level 144 136-145 mmol/L Potassium Level 3.7 3.5-5.1 mmol/L Chloride Level 107 98-107 mmol/L Carbon Dioxide Level 27 20-31 mmol/L Anion Gap 10 5-15 Blood Urea Nitrogen 11 9-23 mg/dL Creatinine 0.82 0.700-1.30 mg/dL Glomerular Filtration Rate Calc 90 >90 mL/min BUN/Creatinine Ratio 13.4 10.0-20.0 Serum Glucose 95 74-106 mg/dL Calcium Level 9.1 8.7-10.4 mg/dL Total Bilirubin 5.6 H 0.2-1.0 mg/dL Aspartate Amino Transferase (AST) 200 H <34 U/L Alanine Aminotransferase (ALT) 237 H 7-40 U/L Alkaline Phosphatase 441 H 46-116 U/L Total Protein 6.5 5.7-8.2 g/dL Albumin 4.0 3.2-4.8 g/dL Amylase Level 218 H 30-118 U/L Lipase 81 H 12-53 U/L Urine Color Yellow Yellow Urine Clarity Clear Clear Urine pH 5.0 5.0-9.0 Urine Specific [place] 1.027 1.001-1.035 Urine Protein Negative Negative Urine Ketones 2+ H Negative Urine Blood Negative Negative /uL Urine Nitrite Negative Negative Urine Bilirubin Negative Negative Urine Urobilinogen Normal Negative mg/dL Urine Leukocyte Esterase Negative Negative /uL Urine RBC 2 0 - 3 /hpf Urine Microscopic WBC 1 0-3 /HPF Urine Squamous Epithelial Cells Few <5 /hpf Urine Bacteria None seen None Seen /hpf Urine Hyaline Casts Few 0 - 2 /lpf Urine Mucus Few None Seen Urine Glucose Normal Normal mg/dL Assessment Complete atrioventricular block Hx of RLE DVT, on Eliquis therapy Suspected gallstone pancreatitis Benign prostatic hyperplasia Hard of hearing Plan/Recommendation (Dr. Hill) Case discussed with Dr. Hill. The patient with an intermittent high-degree atrioventricular block is scheduled for a permanent pacemaker implantation with Dr. Hill on 11/10/2024. In the meantime, avoid any AV chalo agents. Hold Eliquis therapy and continue therapeutic Lovenox, hold day of procedure. Hold any antiplatelet therapy. Initiate atropine therapy PRN for HR <30 bpm and initiate transcutaneous pacing thereafter. Notify Cardiology of a heart rate < 30 bpm, symptomatic bradycardia, or clinical deterioration. Monitor ECG changes closely and notify accordingly. TSH level pending at this time. Obtain a transthoracic echocardiogram to evaluate cardiac function. Rest of plan per cl inical course. Thank you for allowing us to participate in this patient's care. Please call if you have any questions or concerns. Critical care time: 40 min. This medical document was created using an electronic medical record system with voice recognition software and computerized dictation system. Although this document has been carefully reviewed, there might still be some phonetic and typographical errors. Occasional wrong-word or ``sound-alike substitutions may have occurred due to the inherent limitations of voice recognition software. These areas are purely typographical due to imperfections of the software programs and do not reflect any compromise in the patient's medical care. Please read the chart carefully and recognize, using context, where these substitutions have occurred. Plan discussed with: Patient, Other [place] Physical activity limitations: NA Date of Service: Nov 08, 2024 Billing Provider: ANALILIA RIOS Cardiology Common Codes: [id number] CARE 30-74 MIN ANALILIA RIOS Nov 08, 2024 18:06
[2024-11-08] MEDS: PIPERACILLIN-TAZOB 3.375GM 100 ML IV ONE (18:14)
[2024-11-08] MEDS ORDERED: ATROPINE SULF 1 MG/10ml SYR IV PRN ×2 (18:15→20:00)
[2024-11-08 18:18] LABS: Triglycerides 49.0 mg/dL (< 150)
[2024-11-08 18:19] LABS: Magnesium 2.0 mg/dL (1.6-2.6)
[2024-11-08 18:20] LABS: Cholesterol 150.0 mg/dL (< 200)
[2024-11-08 18:21] LABS: HDL Cholesterol 77.0 mg/dL (40-59)
[2024-11-08] MEDS ORDERED: ATROPINE SULFATE 1 MG/1 ML VIAL IV PRN (20:00)
[2024-11-08] MEDS ORDERED: ATROPINE SULFATE 0.4 MG/1 ML VIAL IV PRN (20:00)
--- NOTE | 2024-11-08 20:19 | PRN ---
Misceleneous Note Note Note Called by supervising MD Dr. Julio patient will need STAT orders for HLOC for Urgent ERCP, false negative MRCP. STAT order for social service consult for arrangement of HLOC for Urgent ERCP as recommended by general surgeon Dr. Malone. Orders entered as requested. Spoke with O KIMBERLY Espinal for HLOC. LUZMARIA MARIO FINISHER MACHINE Nov 08, 2024 20:19
[2024-11-08] MEDS: PIPERACILLIN-TAZOB 3.375GM 100 ML IV SCH (21:24)
[2024-11-08] MEDS: PANTOPRAZOLE 40 MG/10 ML VIAL INJ IV ONE (21:30)
[2024-11-09] VITALS (8 sets, daily range): BP systolic 107–148; BP diastolic 61–74; PULSE 40–58; RESP 16–19; TEMP 97.3–98.6; O2SAT 93–99
[2024-11-09 06:04] LABS: Hematocrit 39.5 % (41.0-53.0); Hemoglobin 13.5 g/dL (13.5-17.5); Mean Corpuscular Hemoglobin 31.7 pg (28.0-32.0); Mean Corpuscular Volume 93.0 fL (80.0-100.0); Nucleated Red Blood Cells % 0.1 %
[2024-11-09 06:30] LABS: Albumin 3.8 g/dL (3.2-4.8); Amylase 87 U/L (30-118); Anion Gap 10 (5-15); BUN/Creatinine Ratio 13.5 (10.0-20.0); Blood Urea Nitrogen 12 mg/dL (9-23); Calcium 8.9 mg/dL (8.7-10.4); Carbon Dioxide 27 mmol/L (20-31); Glucose 77 mg/dL (74-106); Lipase 35 U/L (12-53); Magnesium 2.2 mg/dL (1.6-2.6); Total Protein 6.2 g/dL (5.7-8.2)
[2024-11-09 06:32] LABS: Alanine Aminotransferase 162 U/L (7-40); Alkaline Phosphatase 472 U/L (46-116); Bilirubin, Total 6.7 mg/dL (0.2-1.0); Chloride 109 mmol/L (98-107); Potassium 3.4 mmol/L (3.5-5.1); Sodium 146 mmol/L (136-145)
[2024-11-09] MEDS: PANTOPRAZOLE 40 MG/10 ML VIAL INJ IV SCH (09:28)
[2024-11-09] MEDS ORDERED: CLINIMIX PER PHARMACY 0 ML IV SCH (10:45)
--- NOTE | 2024-11-09 12:27 | DVHPN2 ---
Progress Note Date Seen: Nov 09, 2024 Medical Necessity Reason Pt with a Central, PICC or Fol: No Objective vital signs Vital Sign Date Time Temp Pulse Resp B/P (MAP) Pulse Ox O2 Delivery O2 Flow Rate FiO2 11/09/24 08:31 98.6 54 18 130/66 (87) 96 98.6 11/08/24 20:00 Room Air* 0 21 Total Intake and Output 11/08/24 11/08/24 11/09/24 15:00 23:00 07:00 Intake Total 0 ml 100 ml Balance 0 ml 100 ml medications Current Medications Medications Dose Ordered Sig/Marilyn Route Start Time Stop Time Status Last Admin Dose Admin Sodium Chloride 1,000 ml @ 120 mls/hr Q8H20M IV 11/07/24 17:15 11/09/24 11:35 120 MLS/HR Acetaminophen/ Hydrocodone Bitart 1 tab Q4HP PRN PO 11/07/24 17:15 Hold Ondansetron HCl 4 mg Q4HP PRN IV 11/07/24 17:15 Acetaminophen 650 mg Q6HP PRN PO 11/07/24 17:15 Hold Morphine Sulfate 2 mg Q4HPRN PRN IV 11/07/24 17:15 Nitroglycerin 0.4 mg Q5MINP PRN SL 11/07/24 17:15 Morphine Sulfate 2 mg Q30M PRN IV 11/07/24 17:15 Enoxaparin Sodium 80 mg Q12HR SC 11/07/24 22:00 11/09/24 09:28 80 MG Piperacillin Sod/ Tazobactam Sod 100 ml @ 25 mls/hr Q8H IV 11/08/24 22:00 11/08/24 21:24 25 MLS/HR Atropine Sulfate 0.5 mg Q5MINP PRN IV 11/08/24 20:00 Pantoprazole Sodium 40 mg DAILY IV 11/09/24 10:00 11/09/24 09:28 40 MG Amino Acids 0 ml @ 0 mls/hr PER PHARMACY IV 11/09/24 10:45 UNV laboratory and microbiology Laboratory Tests 11/09/24 05:08 Test 11/09/24 05:08 Range/Units Serum Glucose 77 74-106 mg/dL Problem List/Assessment/Plan Problem List/Assessment/Plan 11/09/24very lengthy conversation with patient and his at bedside. He is being considered for a pacemaker and transfer to a facility for ERCP. 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 Then he had abdominal pain and nausea and had some jaundice after which he came to the hospital and" did an operation"(Partial cholecystectomy). then after that operation he was OK for a while but his abdominal pain returned when he ate "some very greasy foods"/ Now he has a rising Bilirubin but his abdomen on my examination is not at all tender. This concerns me because his hyperbilirubinemia wound indicate severe inflammation which would be expected to result in more tenderness in the right upper quadrant of his abdomen, which is not present. Normal white count,Bilirubin of 6.7 and non tender abdomen are not consistent with the diagnosis of cholecystitis I reassured him that he does not need an urgent operation and that it is safe to transfer him to a larger hospital also told him he could have ERCP,Pacemaker and cholecystectomy at the same facility provided his insurance allows that Plan discussed with: Patient CRISTY IRBY MD Nov 09, 2024 12:27
--- NOTE | 2024-11-09 16:47 | DVHPN2 ---
Subjective Overnight events noted. Yesterday patient was recommended to be on higher level of care for ERCP. So far no facility has accepted with the patient has patient has a bradycardia, currently scheduled for pacemaker placement by Dr. Hill tomorrow. Changes from previous H/P or p: No Changes Objective Vitals Vital Signs Date Time Temp Pulse Resp B/P (MAP) Pulse Ox O2 Delivery O2 Flow Rate FiO2 11/09/24 12:42 97.8 41 18 136/63 (87) 98 97.8 11/09/24 08:05 Room Air* 0 21 Intake/Output Intake and Output 11/09/24 07:00 Intake Total 100 ml Balance 100 ml Intake Oral 0 ml IV Total 100 ml # Voids 4 Exam HEENT pupils are reactive Neck is supple CV is S1-S2 regular rhythm but bradycardia between 48-51. 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 Medications Current Medications Medications Dose Ordered Sig/Marilyn Route Start Time Stop Time Status Last Admin Dose Admin Sodium Chloride 1,000 ml @ 120 mls/hr Q8H20M IV 11/07/24 17:15 11/09/24 11:35 120 MLS/HR Acetaminophen/ Hydrocodone Bitart 1 tab Q4HP PRN PO 11/07/24 17:15 Hold Ondansetron HCl 4 mg Q4HP PRN IV 11/07/24 17:15 Acetaminophen 650 mg Q6HP PRN PO 11/07/24 17:15 Hold Morphine Sulfate 2 mg Q4HPRN PRN IV 11/07/24 17:15 Nitroglycerin 0.4 mg Q5MINP PRN SL 11/07/24 17:15 Morphine Sulfate 2 mg Q30M PRN IV 11/07/24 17:15 Enoxaparin Sodium 80 mg Q12HR SC 11/07/24 22:00 11/09/24 09:28 80 MG Piperacillin Sod/ Tazobactam Sod 100 ml @ 25 mls/hr Q8H IV 11/08/24 22:00 11/09/24 15:47 25 MLS/HR Atropine Sulfate 0.5 mg Q5MINP PRN IV 11/08/24 20:00 Pantoprazole Sodium 40 mg DAILY IV 11/09/24 10:00 11/09/24 09:28 40 MG Amino Acids 0 ml @ 0 mls/hr PER PHARMACY IV 11/09/24 10:45 UNV Laboratory Results Laboratory Tests 11/09/24 05:08 Chemistry Test 11/09/24 05:08 Albumin 3.8 g/dL (3.2-4.8) Calcium Level 8.9 mg/dL (8.7-10.4) Magnesium Level 2.2 mg/dL (1.6-2.6) Total Protein 6.2 g/dL (5.7-8.2) Lipid panel Test 11/09/24 05:08 Lipase 35 U/L (12-53) LFT Test 11/09/24 05:08 Alanine Aminotransferase (ALT) 162 U/L (7-40) H Alkaline Phosphatase 472 U/L (46-116) H Aspartate Amino Transferase (AST) 107 U/L (<34) H Total Bilirubin 6.7 mg/dL (0.2-1.0) H Urinalysis Test 11/07/24 10:17 Urine Color Yellow (Yellow) Urine Clarity Clear (Clear) Urine pH 5.0 (5.0-9.0) Urine Specific [place] 1.027 (1.001-1.035) Urine Protein Negative (Negative) Urine Ketones 2+ (Negative) H Urine Blood Negative /uL (Negative) Urine Nitrite Negative (Negative) Urine Bilirubin Negative (Negative) Urine Urobilinogen Normal mg/dL (Negative) Urine Leukocyte Esterase Negative /uL (Negative) Urine RBC 2 /hpf (0 - 3) Urine Microscopic WBC 1 /HPF (0-3) Urine Squamous Epithelial Cells Few /hpf (<5) Urine Bacteria None seen /hpf (None Seen) Urine Hyaline Casts Few /lpf (0 - 2) Urine Mucus Few (None Seen) Urine Glucose Normal mg/dL (Normal) Assessment/Plan Assessment/Plan 59-year-old male with a known history of DVT right lower extremity, history of back surgery, history of abdominal hernia surgery, history of subtotal cholecystectomy July of this year presented to the hospital with a nausea and vomiting epigastric pain found to have 1. Acute pancreatitis suspected gallstone induced , improved start clear liquid diet keep NPO after midnight 2. Cholelithiasis/with previous history of subtotal cholecystectomy , now acute cholecystitis 3. History of DVT right lower extremity on Eliquis which will be currently on hold 4. Transaminitis with elevated T bili and alkaline phosphatase , MRCP negative for choledocholithiasis but clinically patient does have acute choledocholithiasis because of elevated lipase and T bilirubin 5. Bradycardia currently scheduled for pacemaker placement -IV nutrition with Clinimix, clear liquid diet as tolerated, keep NPO after midnight for pacemaker placement MRCP negative for choledocholithiasis but patient's enzymes alkaline phosphatase and T bili are going up strongly suggest above need of ERCP General surgery consultation Dr. Malone is recommending ERCP-, -second opinion from General surgery Dr. Raquel Witt-was obtained who recommends ERCP as well. Plan of care discussed with the patient at bedside has been as patient's spouse , they both understand verbalized the understanding and agreeable to plan. Plan discussed with: Patient, Spouse My Orders Orders - SULMA HOOKER MD Procedure Category Date Status Time Piperacillin-Tazob PHA 11/08/24 In Process 3.375gm (Zosyn 3.375g 22:00 Discharge DISCHARGE 11/08/24 Transmitted 20:21 Pantoprazole PHA 11/09/24 In Process (Protonix) 10:00 * Surgical Consult CONS 11/08/24 Transmitted 20:40 Imaging Transfer ORDERS 11/09/24 Transmitted Request 01:23 Clinimix Per Pharmacy MACI 11/09/24 In Process 10:37 Clinimix Per Pharmacy PHA 11/09/24 Pending 10:45 Clear Liq Diet DIET 11/09/24 Transmitted Lunch Hold Enoxaparin Day [facility] 11/09/24 In Process Of Procedu 13:14 Covid19 Antigen [facility] 11/09/24 Logged Electrocardigram EKG 11/09/24 Logged 15:24 Date of Service: Nov 09, 2024 Billing Provider: SULMA HOOKER MD Common Visit Codes: NOT BILLABLE SULMA HOOKER MD Nov 09, 2024 16:47
--- NOTE | 2024-11-09 16:52 | DVHPN2 ---
Consult Progress Note Subjective Other Systems: Patient in sinus bradycardia at time of assessment. Noted intermittent second-degree type 2 atrioventricular blocks on event monitor. Patient denies any cardiac symptoms Objective vital signs Vital Sign Date Time Temp Pulse Resp B/P (MAP) Pulse Ox O2 Delivery O2 Flow Rate FiO2 11/09/24 12:42 97.8 41 18 136/63 (87) 98 97.8 11/09/24 08:05 Room Air* 0 21 Total Intake and Output 11/08/24 11/08/24 11/09/24 15:00 23:00 07:00 Intake Total 0 ml 100 ml Balance 0 ml 100 ml medications Current Medications Medications Dose Ordered Sig/Marilyn Route Start Time Stop Time Status Last Admin Dose Admin Sodium Chloride 1,000 ml @ 120 mls/hr Q8H20M IV 11/07/24 17:15 11/09/24 11:35 120 MLS/HR Acetaminophen/ Hydrocodone Bitart 1 tab Q4HP PRN PO 11/07/24 17:15 Hold Ondansetron HCl 4 mg Q4HP PRN IV 11/07/24 17:15 Acetaminophen 650 mg Q6HP PRN PO 11/07/24 17:15 Hold Morphine Sulfate 2 mg Q4HPRN PRN IV 11/07/24 17:15 Nitroglycerin 0.4 mg Q5MINP PRN SL 11/07/24 17:15 Morphine Sulfate 2 mg Q30M PRN IV 11/07/24 17:15 Enoxaparin Sodium 80 mg Q12HR SC 11/07/24 22:00 11/09/24 09:28 80 MG Piperacillin Sod/ Tazobactam Sod 100 ml @ 25 mls/hr Q8H IV 11/08/24 22:00 11/09/24 15:47 25 MLS/HR Atropine Sulfate 0.5 mg Q5MINP PRN IV 11/08/24 20:00 Pantoprazole Sodium 40 mg DAILY IV 11/09/24 10:00 11/09/24 09:28 40 MG Amino Acids 0 ml @ 0 mls/hr PER PHARMACY IV 11/09/24 10:45 UNV Examination: GENERAL:Normal, LUNGS:Normal, CVS:Abnormal (Sinus bradycardia with intermittent second-degree type 2 atrioventricular block), NEURO:Normal laboratory and microbiology Laboratory Tests 11/09/24 05:08 Test 11/09/24 05:08 Range/Units Serum Glucose 77 74-106 mg/dL Problem List/Assessment/Plan Problem List/Assessment/Plan Sinus bradycardia with intermittent high-degree atrioventricular block Hx of RLE DVT, on Eliquis therapy Suspected gallstone pancreatitis Benign prostatic hyperplasia Hard of hearing Plan/Recommendation (Dr. Hill) Case discussed with Dr. Hill. The patient with an intermittent high-degree atrioventricular block is scheduled for a permanent pacemaker implantation with Dr. Hill on 11/10/2024. In the meantime, avoid any AV chalo agents. Hold Eliquis therapy and continue therapeutic Lovenox, hold day of procedure. Hold any antiplatelet therapy. Initiate atropine therapy PRN for HR <30 bpm and initiate transcutaneous pacing thereafter. Notify Cardiology immediately of a heart rate < 30 bpm, symptomatic bradycardia, or clinical deterioration. Monitor ECG changes closely and notify accordingly. Obtain a transthoracic echocardiogram to evaluate cardiac function. Rest of plan per clinical course. Thank you for allowing us to participate in this patient's care. Please call if you have any questions or concerns. Critical care time: 40 min. This medical document was created using an electronic medical record system with voice recognition software and computerized dictation system. Although this document has been carefully reviewed, there might still be some phonetic and typographical errors. Occasional wrong-word or ``sound-alike substitutions may have occurred due to the inherent limitations of voice recognition software. These areas are purely typographical due to imperfections of the software programs and do not reflect any compromise in the patient's medical care. Please read the chart carefully and recognize, using context, where these substitutions have occurred. Plan discussed with: Patient Date of Service: Nov 09, 2024 Billing Provider: JANES DIXON Common Visit Codes: [id number] INP/OBS CARE(HIGH) JANES DIXON Nov 09, 2024 16:52
[2024-11-09] MEDS: POTASSIUM CHL 20MEQ/100ML 100 ML IV ONE (19:51)
[2024-11-09] MEDS: AMINO ACID INFUSION IN D10W 1,000 ML IV SCH (21:58)
[2024-11-09] MEDS ORDERED: DEXTROSE (50%) 50ML SYRG IV SCH (22:00)
[2024-11-10] VITALS (12 sets, daily range): BP systolic 133–164; BP diastolic 72–94; PULSE 41–66; RESP 13–18; TEMP 97.4–98.5; O2SAT 96–100
[2024-11-10] MEDS: InsuLIN REG 1unit/0.01ml Soln (100units/ml) SC SCH
[2024-11-10] MEDS: ACCU-CHEK COMFORT CURVE STRIP VI SCH (00:22)
[2024-11-10 05:41] LABS: Hematocrit 38.5 % (41.0-53.0); Hemoglobin 13.1 g/dL (13.5-17.5); Mean Corpuscular Hemoglobin 31.4 pg (28.0-32.0); Mean Corpuscular Volume 92.4 fL (80.0-100.0); Nucleated Red Blood Cells % 0.1 %
[2024-11-10 06:01] LABS: Albumin 3.6 g/dL (3.2-4.8); Anion Gap 9 (5-15); BUN/Creatinine Ratio 12.9 (10.0-20.0); Blood Urea Nitrogen 11 mg/dL (9-23); Calcium 9.4 mg/dL (8.7-10.4); Carbon Dioxide 27 mmol/L (20-31); Magnesium 2.0 mg/dL (1.6-2.6); Sodium 144 mmol/L (136-145); Total Protein 5.9 g/dL (5.7-8.2)
[2024-11-10 06:33] LABS: Alanine Aminotransferase 137 U/L (7-40); Alkaline Phosphatase 466 U/L (46-116); Bilirubin, Total 5.5 mg/dL (0.2-1.0); Chloride 108 mmol/L (98-107); Glucose 109 mg/dL (74-106); Potassium 3.4 mmol/L (3.5-5.1)
--- NOTE | 2024-11-10 07:52 | ECG ---
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
--- NOTE | 2024-11-10 09:04 | DVH ---
CHEST RADIOGRAPH Indication: scheduled for permanent pacemaker 11/10/24 Technique: Single frontal view of the chest was obtained COMPARISON: None FINDINGS: The cardiac silhouette is unremarkable. The lungs demonstrate bilateral patchy airspace opacities. Th e pulmonary vasculature is prominent. Small right pleural effusion. Elevation right hemidiaphragm. T here is no pneumothorax. Aortic atherosclerotic disease. IMPRESSION: Pulmonary vascular congestion and bilateral patchy airspace opacities. Small right pleural effusion.
[2024-11-10 09:32] LABS: INR 1.09 (0.9-1.15); Partial Thromboplastin Time 31.0 SEC (24.5-34.5); Prothrombin Time 11.5 sec (9.3-11.8)
[2024-11-10] MEDS: MIDAZOLAM HCL 2MG/2ML 2ml VIAL (1mg/ml) ONE (11:49)
[2024-11-10] MEDS: fentaNYL CITRATE 100 MCG/2 ML VL ONE (11:49)
[2024-11-10] MEDS: VANCOMYCIN HCL 1000 MG VL ONE (11:49)
[2024-11-10] MEDS: LIDOCAINE 2%HCL (LOCAL ANESTH.) INJ 20ML MDV ONE (11:50)
[2024-11-10] MEDS: VANCOMYCIN 1GM/200ML PM 200 ML IV ONE (11:50)
[2024-11-10] MEDS: IODIXANOL 320MG/ML 100ML BTL IV ONE (11:53)
--- NOTE | 2024-11-10 13:06 | DVHOP2 ---
Operative Report - 2 Report Details Date: 11/10/24 Preop Diagnosis: Complete heart block Postop Diagnosis: Complete heart block Surgeon: Ajit Hill MD Anesthesiologist: Conscious sedation Anesthesia: Mac, Local Consent: The patient was informed of the risks and benefits of the procedure. These include but are not limited to complications of anesthesia, postoperative infection, incomplete relief of symptoms, recurrence of symptoms, damage to bl ood vessels, nerves and tendons, deep venous thrombosis, pulmonary embolism and possible need for repeat surgery in the future. Complications: No complications Findings: Complete heart block Indications for Surgery: Complete heart block Name of Procedure Performed Permanent pacemaker implantation. Dual-chamber device placement. Procedure Details Procedure Details: Prior local anesthesia with 2% lidocaine to the left pectoral area and full informed consent obtained the patient was prepped and draped in usual fashion followed by an incision over the left pectoral area and dissection planes with the electrocautery and blunt dissection. A pocket was formed into the pectoral fascia and flushed with antibiotic solution packed with an antibiotic filled Ray-Jb sponge. We then inserted a cook needle into the subclavian vein under fluoroscopic guidance post acquisition of venogram. A nine Ghanaian sheath was advanced. Peel-away sheaths were used to place active fixation electrodes into the RV apex and right atrial appendage successfully. These were sutured with 0 Ethibond. After adequate capture and sensitivity thresholds were obtained the sheaths were removed and leads were sutured with 0 Ethibond. After the pocket was flushed in the Ray-Jb sponge removed we connected the generator and the leads were inserted and secured successfully. These with the sutured with 0 Ethibond as well. Adequate capture and sensitivity thresholds were obtained. The right ventricular lead is a model number 798383. It is a solia S 60, serial number [id number], this is by [email or web address]. Implanted right atrial lead is a model 147879, solia S 53 by [email or web address]. Serial number [id number]. There was a R-wave of 12 at 0.5 volts 0.4 milliseconds and 585 Ohms. There was a P-wave of 2.4 at point 8 volts 0.4 milliseconds on 525 Ohms of impedance. The implanted pacer device is a model 804806, AMVIA edge DRT-T, serial [id number] by [email or web address]. THE MOOD SAID IS DDD/CLS AT A LOWER RATE OF 65 UPPER RATE OF 130. THERE WAS AN AV DELAY OF 190/160 MILLISECONDS WITH A PV AERP OF 275 MILLISECONDS, RA SENSITIVITY OF 0.5 MV. AUTO RV SENSITIVITY, 2.0 MV. AUTO RA OUTPUT AT 4.0 MV/0.4 MILLISECONDS. RV OUTPUT 4.0 VOLTS AT 0.4 MILLISECONDS. A CHEST X-RAY WAS ORDERED FOR EVALUATION OF PLACEMENT. Impression: Successful placement of dual-chamber pacemaker for the indication of complete heart block. Recommendations: Continue medical therapy. Risk factor modification to continue. Condition Good Disposition Still a Patient Date of Service: Nov 10, 2024 Billing Provider: AJIT HILL Sr., MD Cardiology Common Codes: [id number] INP/OBS CARE (High) Card. Pacer Implants/Gen [id number]/REPLACE DUAL LEAD PACER AJIT HILL Sr., MD Nov 10, 2024 13:06
--- NOTE | 2024-11-10 13:35 | DVH ---
EXAM: XY CHEST PORTABLE Indication: S/P PACEMAKER Technique: Single frontal view of the chest was obtained Comparison: XY CHEST XRAY 1 VIEW on DOS: 11/10/24, XY CHEST XRAY 1 VIEW on DOS: 08/04/24 FINDINGS: Lines and Tubes: Cardiac pacemaker projects over left chest wall. Lungs: No focal consolidation. Mild pulmonary vascular congestion. Pleura: No effusion. No pneumothorax. Cardiomediastinal contours: Unremarkable Bones: No acute osseous abnormality. IMPRESSION: Cardiac pacemaker projects over left chest wall.No acute cardiopulmonary disease.
--- NOTE | 2024-11-10 14:56 | DVHPN2 ---
Progress Note - Dictate Date Seen: Nov 10, 2024 Medical Necessity Reason Pt with a Central, PICC or Fol: No Subjective Back from pacemaker placement. Alert awake oriented to place and person. Comfortable in bed. No complaints. vital signs Vital Sign Date Time Temp Pulse Resp B/P (MAP) Pulse Ox O2 Delivery O2 Flow Rate FiO2 11/10/24 13:55 61 15 155/94 (114) 96 11/10/24 09:00 97.8 97.8 11/10/24 08:00 Room Air* 0 21 Total Intake and Output 11/09/24 11/09/24 11/10/24 15:00 23:00 07:00 Intake Total 300 ml 350 ml Balance 300 ml 350 ml medications Current Medications Medications Dose Ordered Sig/Marilyn Route Start Time Stop Time Status Last Admin Dose Admin Sodium Chloride 1,000 ml @ 120 mls/hr Q8H20M IV 11/07/24 17:15 11/10/24 03:35 120 MLS/HR Acetaminophen/ Hydrocodone Bitart 1 tab Q4HP PRN PO 11/07/24 17:15 Hold Ondansetron HCl 4 mg Q4HP PRN IV 11/07/24 17:15 Acetaminophen 650 mg Q6HP PRN PO 11/07/24 17:15 Hold Morphine Sulfate 2 mg Q4HPRN PRN IV 11/07/24 17:15 Nitroglycerin 0.4 mg Q5MINP PRN SL 11/07/24 17:15 Morphine Sulfate 2 mg Q30M PRN IV 11/07/24 17:15 Enoxaparin Sodium 80 mg Q12HR SC 11/07/24 22:00 11/09/24 21:36 80 MG Piperacillin Sod/ Tazobactam Sod 100 ml @ 25 mls/hr Q8H IV 11/08/24 22:00 11/10/24 05:10 25 MLS/HR Atropine Sulfate 0.5 mg Q5MINP PRN IV 11/08/24 20:00 Pantoprazole Sodium 40 mg DAILY IV 11/09/24 10:00 11/09/24 09:28 40 MG Amino Acids 0 ml @ 0 mls/hr PER PHARMACY IV 11/09/24 10:45 Amino Acids/ Electrolytes/ Dextrose 1,000 ml @ 41 mls/hr DAILY@2200 IV 11/09/24 22:00 11/09/24 21:58 41 MLS/HR Diagnostic Test (Pha) 1 strip Q6HR 11/10/24 00:00 11/10/24 05:11 1 STRIP Insulin Human Regular FOLLOW SLIDING SCALE Q6HR SC 11/10/24 00:00 Dextrose 50 ml UD IV 11/09/24 22:00 objective HEENT neck supple no JVD. Heart regular rate and rate and rhythm S1 plus S2. Lungs fair removed without wheezing. Abdomen soft nontender. Extremities no edema. laboratory and microbiology Laboratory Tests 11/10/24 05:08 Test 11/10/24 05:08 Range/Units Serum Glucose 109 H 74-106 mg/dL Assessment/Plan Waiting for transferred to higher level of care for ERCP procedure. Resume his clear liquid diet. Resume he is rest of medications. Further clinical management for clinical course. Patient once bed available will be transferred for ERCP. Meantime we will follow his liver function tests. Advanced diet as he tolerates. Discussed with the patient and nurse regarding current plan. Problems(with codes): (1) Cholecystitis, acute with cholelithiasis (2) BPH (benign prostatic hyperplasia) (3) Gallbladder disease (4) Right leg DVT (5) Status post placement of cardiac pacemaker Dietary Evaluation Review Recommendations by RD: Increase Calorie Intake, PPN/TPN Comments: Pt meets criteria for Protein-Calorie Malnutrition in the setting of acute illness based on intake <50% Estimated energy req >=5 days, mild fluid accumulation(1+ pitting ankle), and wt loss 2.3kg/2.6% in 3 months. Nutrition recommendation 1) TPN to meet at least 75% estimated needs 2) Monitor lab values, wt trend, I/O Expected Outcomes/Goals: To meet >75% estimated needs GI symptoms to improve. Fu 2-3 days Food and Nutrition Intake (Sev: <50% est energy req 5days Interpretation of weight loss: up to 7.5% in 3 months Fluid Accumulation (Non Severe: Mild fluid retention Protein Calorie Malnutrition: Non-Severe Is there a minimum of two crit: Yes Plan discussed with: Patient RITU BALDWIN MD Nov 10, 2024 14:56
[2024-11-10] MEDS: POTASSIUM PHOSPHATE 22 MEQ in SODIUM CHL 0.9% 100 ML IV ONE (17:30)
[2024-11-10] MEDS: TAMSULOSIN HYDROCHLORIDE 0.4 MG CAP PO SCH (18:13)
[2024-11-10] MEDS: MORPHINE SULFATE INJ 2 MG/ml SYRG IV PRN (23:26)
[2024-11-11] VITALS (8 sets, daily range): BP systolic 117–143; BP diastolic 76–96; PULSE 58–65; RESP 14–20; TEMP 97.1–98; O2SAT 96–98
--- NOTE | 2024-11-11 05:50 | DVH ---
CHEST RADIOGRAPH Indication: CXR FOR PACEMAKER/ICD LEAD PLACEMENT Technique: Single frontal view of the chest was obtained Comparison: XY CHEST PORTABLE on DOS: 11/10/24, XY CHEST XRAY 1 VIEW on DOS: 11/10/24, XY CHEST XRAY 1 VIEW on DOS: 08/04/24, XY CHEST PORTABLE on DOS: 11/10/24 FINDINGS: Lines and Tubes: Cardiac pacemaker projects over left chest wall. Lungs: No focal consolidation. Mild pulmonary vascular congestion. Pleura: No effusion. No pneumothorax. Cardiomediastinal contours: Unremarkable Bones: No acute osseous abnormality. IMPRESSION: Cardiac pacemaker projects over left chest wall.No acute cardiopulmonary disease.
[2024-11-11 06:12] LABS: Albumin 3.7 g/dL (3.2-4.8); Anion Gap 11 (5-15); BUN/Creatinine Ratio 15.2 (10.0-20.0); Blood Urea Nitrogen 10 mg/dL (9-23); Calcium 9.6 mg/dL (8.7-10.4); Carbon Dioxide 24 mmol/L (20-31); Chloride 104 mmol/L (98-107); Magnesium 1.9 mg/dL (1.6-2.6); Sodium 139 mmol/L (136-145); Total Protein 6.2 g/dL (5.7-8.2)
[2024-11-11 06:22] LABS: Alanine Aminotransferase 197 U/L (7-40); Alkaline Phosphatase 530 U/L (46-116); Bilirubin, Total 6.8 mg/dL (0.2-1.0); Glucose 131 mg/dL (74-106); Potassium 3.2 mmol/L (3.5-5.1)
[2024-11-11] MEDS: FINASTERIDE 5 MG TAB PO SCH (09:34)
--- NOTE | 2024-11-11 13:16 | DVHPN2 ---
Progress Note - Dictate Date Seen: Nov 11, 2024 Medical Necessity Reason Pt with a Central, PICC or Fol: No Subjective Clinically stable. Heart rate though is normal rate. Pending transferred to higher level of care for ERCP. His is at bedside. vital signs Vital Sign Date Time Temp Pulse Resp B/P (MAP) Pulse Ox O2 Delivery O2 Flow Rate FiO2 11/11/24 12:53 98.0 60 20 129/84 (99) 97 98.0 11/11/24 08:08 Room Air* 0 21 Total Intake and Output 11/10/24 11/10/24 11/11/24 14:59 22:59 06:59 Intake Total 1432 ml 1812 ml Output Total 470 ml 550 ml Balance 962 ml 1262 ml medications Current Medications Medications Dose Ordered Sig/Marilyn Route Start Time Stop Time Status Last Admin Dose Admin Sodium Chloride 1,000 ml @ 120 mls/hr Q8H20M IV 11/07/24 17:15 11/11/24 04:35 120 MLS/HR Acetaminophen/ Hydrocodone Bitart 1 tab Q4HP PRN PO 11/07/24 17:15 Hold Ondansetron HCl 4 mg Q4HP PRN IV 11/07/24 17:15 Acetaminophen 650 mg Q6HP PRN PO 11/07/24 17:15 Hold Morphine Sulfate 2 mg Q4HPRN PRN IV 11/07/24 17:15 11/10/24 23:26 2 MG Nitroglycerin 0.4 mg Q5MINP PRN SL 11/07/24 17:15 Morphine Sulfate 2 mg Q30M PRN IV 11/07/24 17:15 Enoxaparin Sodium 80 mg Q12HR SC 11/07/24 22:00 11/11/24 09:34 80 MG Piperacillin Sod/ Tazobactam Sod 100 ml @ 25 mls/hr Q8H IV 11/08/24 22:00 11/11/24 05:13 25 MLS/HR Atropine Sulfate 0.5 mg Q5MINP PRN IV 11/08/24 20:00 Pantoprazole Sodium 40 mg DAILY IV 11/09/24 10:00 11/11/24 09:35 40 MG Amino Acids 0 ml @ 0 mls/hr PER PHARMACY IV 11/09/24 10:45 Amino Acids/ Electrolytes/ Dextrose 1,000 ml @ 41 mls/hr DAILY@2200 IV 11/09/24 22:00 11/10/24 21:24 41 MLS/HR Diagnostic Test (Pha) 1 strip Q6HR 11/10/24 00:00 11/11/24 05:12 1 STRIP Insulin Human Regular FOLLOW SLIDING SCALE Q6HR SC 11/10/24 00:00 Dextrose 50 ml UD IV 11/09/24 22:00 Tamsulosin HCl 0.4 mg QPM PO 11/10/24 18:00 11/10/24 18:13 0.4 MG Finasteride 5 mg DAILY PO 11/11/24 10:00 11/11/24 09:34 5 MG objective HEENT neck supple no JVD. Heart regular rate and rate and rhythm S1 plus S2. Lungs fair removed without wheezing. Abdomen soft nontender. Extremities no edema. laboratory and microbiology Laboratory Tests 11/11/24 04:59 11/10/24 05:08 Test 11/11/24 04:59 Range/Units Serum Glucose 131 H 74-106 mg/dL Assessment/Plan Waiting for transferred to higher level of care for ERCP procedure. Resume his clear liquid diet. Resume he is rest of medications. Further clinical management for clinical course. Discussed with the nurse and on-call rn case management to see if they can call around multiple other hospitals for transfer as soon as possible. Discussed with the patient and his who is at bedside regarding care plan. Encouraged ambulation and activity given history of DVT. Problems(with codes): (1) BPH (benign prostatic hyperplasia) (2) Gallbladder disease (3) Intractable abdominal pain (4) Cholecystitis, acute with cholelithiasis (5) Chronic deep vein thrombosis (DVT) of lower leg Dietary Evaluation Review Recommendations by RD: Increase Calorie Intake, PPN/TPN Comments: Pt meets criteria for Protein-Calorie Malnutrition in the setting of acute illness based on intake <50% Estimated energy req >=5 days, mild fluid accumulation(1+ pitting ankle), and wt loss 2.3kg/2.6% in 3 months. Nutrition recommendation 1) TPN to meet at least 75% estimated needs 2) Monitor lab values, wt trend, I/O Expected Outcomes/Goals: To meet >75% estimated needs GI symptoms to improve. Fu 2-3 days Food and Nutrition Intake (Sev: <50% est energy req 5days Interpretation of weight loss: up to 7.5% in 3 months Fluid Accumulation (Non Severe: Mild fluid retention Protein Calorie Malnutrition: Non-Severe Is there a minimum of two crit: Yes Plan discussed with: Patient, Spouse RITU BALDWIN MD Nov 11, 2024 13:16
--- NOTE | 2024-11-11 13:49 | DVHPN2 ---
Consult Progress Note Subjective Patient reports: No new complaints Objective vital signs Vital Sign Date Time Temp Pulse Resp B/P (MAP) Pulse Ox O2 Delivery O2 Flow Rate FiO2 11/11/24 12:53 98.0 60 20 129/84 (99) 97 98.0 11/11/24 08:08 Room Air* 0 21 Total Intake and Output 11/10/24 11/10/24 11/11/24 15:00 23:00 07:00 Intake Total 1432 ml 1812 ml Output Total 470 ml 550 ml Balance 962 ml 1262 ml medications Current Medications Medications Dose Ordered Sig/Marilyn Route Start Time Stop Time Status Last Admin Dose Admin Acetaminophen/ Hydrocodone Bitart 1 tab Q4HP PRN PO 11/07/24 17:15 Hold Ondansetron HCl 4 mg Q4HP PRN IV 11/07/24 17:15 Acetaminophen 650 mg Q6HP PRN PO 11/07/24 17:15 Hold Morphine Sulfate 2 mg Q4HPRN PRN IV 11/07/24 17:15 11/10/24 23:26 2 MG Nitroglycerin 0.4 mg Q5MINP PRN SL 11/07/24 17:15 Morphine Sulfate 2 mg Q30M PRN IV 11/07/24 17:15 Enoxaparin Sodium 80 mg Q12HR SC 11/07/24 22:00 11/11/24 09:34 80 MG Piperacillin Sod/ Tazobactam Sod 100 ml @ 25 mls/hr Q8H IV 11/08/24 22:00 11/11/24 05:13 25 MLS/HR Atropine Sulfate 0.5 mg Q5MINP PRN IV 11/08/24 20:00 Pantoprazole Sodium 40 mg DAILY IV 11/09/24 10:00 11/11/24 09:35 40 MG Amino Acids 0 ml @ 0 mls/hr PER PHARMACY IV 11/09/24 10:45 Amino Acids/ Electrolytes/ Dextrose 1,000 ml @ 41 mls/hr DAILY@2200 IV 11/09/24 22:00 11/10/24 21:24 41 MLS/HR Diagnostic Test (Pha) 1 strip Q6HR 11/10/24 00:00 11/11/24 05:12 1 STRIP Insulin Human Regular FOLLOW SLIDING SCALE Q6HR SC 11/10/24 00:00 Dextrose 50 ml UD IV 11/09/24 22:00 Tamsulosin HCl 0.4 mg QPM PO 11/10/24 18:00 11/10/24 18:13 0.4 MG Finasteride 5 mg DAILY PO 11/11/24 10:00 11/11/24 09:34 5 MG Examination: CVS:Normal (Telemetry reviewed consistent with AV paced rhythm at 61 beats per minute.) laboratory and microbiology Laboratory Tests 11/11/24 04:59 11/10/24 05:08 Test 11/11/24 04:59 Range/Units Serum Glucose 131 H 74-106 mg/dL Problem List/Assessment/Plan Problem List/Assessment/Plan Problem List/Assessment/Plan Sinus bradycardia with intermittent high-degree atrioventricular block Hx of RLE DVT, on Eliquis therapy Suspected gallstone pancreatitis Benign prostatic hyperplasia Hard of hearing S/p ppm implant implantation Plan/Recommendation (Dr. Hill) Case discussed with Dr. Hill. Intermittent high-degree atrioventricular block s/p dual-chamber pacemaker with Biotronik. Interrogation this morning showing normal functioning device. CXR negative for acute pathology. Follow up echo. Patient is stable for transfer. Awaiting transferred to the [facility] for possible ERCP. Rest of plan per clinical course. Thank you for allowing us to participate in this patient's care. Please call if you have any questions or concerns. Critical care time: 40 min. This medical document was created using an electronic medical record system with voice recognition software and computerized dictation system. Although this document has been carefully reviewed, there might still be some phonetic and typographical errors. Occasional wrong-word or ``sound-alike substitutions may have occurred due to the inherent limitations of voice recognition software. These areas are purely typographical due to imperfections of the software programs and do not reflect any compromise in the patient's medical care. Please read the chart carefully and recognize, using context, where these substitutions have occurred. Plan discussed with: Patient, Spouse Dietary Evaluation Review Recommendations by RD: Increase Calorie Intake, PPN/TPN Comments: Pt meets criteria for Protein-Calorie Malnutrition in the setting of acute illness based on intake <50% Estimated energy req >=5 days, mild fluid accumulation(1+ pitting ankle), and wt loss 2.3kg/2.6% in 3 months. Nutrition recommendation 1) TPN to meet at least 75% estimated needs 2) Monitor lab values, wt trend, I/O Expected Outcomes/Goals: To meet >75% estimated needs GI symptoms to improve. Fu 2-3 days Food and Nutrition Intake (Sev: <50% est energy req 5days Interpretation of weight loss: up to 7.5% in 3 months Fluid Accumulation (Non Severe: Mild fluid retention Protein Calorie Malnutrition: Non-Severe Is there a minimum of two crit: Yes Date of Service: Nov 11, 2024 Billing Provider: YOU QUINTANA Common Visit Codes: [id number] INP/OBS CARE(HIGH) YOU QUINTANA Nov 11, 2024 13:49
[2024-11-11] MEDS: POTASSIUM PHOSPHATE 22 MEQ in SODIUM CHL 0.9% 100 ML IV ONE (15:16)
[2024-11-11 17:18] LABS: COVID19 ANTIGEN SOFIA FIA NEGATIVE (NEGATIVE)
[2024-11-12] VITALS (7 sets, daily range): BP systolic 121–144; BP diastolic 77–89; PULSE 58–91; RESP 16–20; TEMP 97.1–98.3; O2SAT 97–99
--- NOTE | 2024-11-12 00:27 | DVHSR ---
APPROVED REPORT EXAM: Two-dimensional and M-mode echocardiogram with Doppler and color Doppler. Blood Pressure: 138/66 mmHg INDICATION High degree AV block RISK FACTORS Height: 5'10", Weight: 189 DIMENSIONS LVDd5.7 (3.8-5.7cm)LA (2D)3.9 (1.9-4.0cm)Aortic Root3.0 (2.0-3.7cm) LVDs3.2 (2.5-4.0cm)LA (MM) (1.9-4.0cm)Aortic Cusp Exc2.0 (1.5-2.0cm) EF (%) 70.0 (55-70%)Rt. Atrium4.0 (1.9-4.0cm)Asc. Aorta3.4 cm IVSd0.7 (0.7-1.1cm)RV (D)3.8 (1.8-2.4cm) PWd0.7 (0.7-1.1cm) Mitral Valve MitralMitral Stenosis E wave0.79m/sMV Mean GR.mmHg A wave0.65m/sMV Peak GR.mmHg E/A ratio1.22D MVAcm2 DECEL [id number] 1/2 Timems Aortic Valve Aortic ValveAortic Stenosis V11.45m/Jayda Mean GR.3mmHg V21.37m/Jayda Peak GR.8mmHg LVOT Diameter2.3 (1.8-2.4cm)Doppler AVA4.40cm2 Pulmonic Valve V21.17m/s Tricuspid Valve TR Velocity2.10m/s [id number] Conclusion NORMAL LV EF AND IS 65% NORMAL VALVES NORMAL RV FUNCTION NO EFFUSION NORMAL RV SP
[2024-11-12 06:57] LABS: Albumin 3.4 g/dL (3.2-4.8); Anion Gap 12 (5-15); BUN/Creatinine Ratio 17.5 (10.0-20.0); Blood Urea Nitrogen 11 mg/dL (9-23); Calcium 9.4 mg/dL (8.7-10.4); Carbon Dioxide 23 mmol/L (20-31); Chloride 106 mmol/L (98-107); Glucose 105 mg/dL (74-106); Magnesium 1.8 mg/dL (1.6-2.6); Sodium 141 mmol/L (136-145)
[2024-11-12 07:17] LABS: Alkaline Phosphatase 480 U/L (46-116); Potassium 3.2 mmol/L (3.5-5.1)
[2024-11-12 07:18] LABS: Alanine Aminotransferase 209 U/L (7-40); Bilirubin, Total 3.6 mg/dL (0.2-1.0); Total Protein 5.5 g/dL (5.7-8.2)
--- NOTE | 2024-11-12 14:24 | DVHPN2 ---
Progress Note - Dictate Date Seen: Nov 12, 2024 Medical Necessity Reason Pt with a Central, PICC or Fol: No Subjective Clinically stable. Heart rate though is normal rate. Still no accepting facility/beds available for transfer to higher level of care. vital signs Vital Sign Date Time Temp Pulse Resp B/P (MAP) Pulse Ox O2 Delivery O2 Flow Rate FiO2 11/12/24 13:00 97.1 61 18 140/89 (106) 98 97.1 11/12/24 07:52 Room Air* 0 21 Total Intake and Output 11/11/24 11/11/24 11/12/24 15:00 23:00 07:00 Intake Total 205 ml 100 ml Output Total 400 ml 750 ml Balance -195 ml -650 ml medications Current Medications Medications Dose Ordered Sig/Marilyn Route Start Time Stop Time Status Last Admin Dose Admin Acetaminophen/ Hydrocodone Bitart 1 tab Q4HP PRN PO 11/07/24 17:15 Hold Ondansetron HCl 4 mg Q4HP PRN IV 11/07/24 17:15 Acetaminophen 650 mg Q6HP PRN PO 11/07/24 17:15 Hold Morphine Sulfate 2 mg Q4HPRN PRN IV 11/07/24 17:15 11/10/24 23:26 2 MG Nitroglycerin 0.4 mg Q5MINP PRN SL 11/07/24 17:15 Morphine Sulfate 2 mg Q30M PRN IV 11/07/24 17:15 Enoxaparin Sodium 80 mg Q12HR SC 11/07/24 22:00 11/12/24 08:15 80 MG Piperacillin Sod/ Tazobactam Sod 100 ml @ 25 mls/hr Q8H IV 11/08/24 22:00 11/12/24 06:07 25 MLS/HR Atropine Sulfate 0.5 mg Q5MINP PRN IV 11/08/24 20:00 Pantoprazole Sodium 40 mg DAILY IV 11/09/24 10:00 11/12/24 08:15 40 MG Amino Acids 0 ml @ 0 mls/hr PER PHARMACY IV 11/09/24 10:45 Amino Acids/ Electrolytes/ Dextrose 1,000 ml @ 41 mls/hr DAILY@2200 IV 11/09/24 22:00 11/11/24 21:49 41 MLS/HR Diagnostic Test (Pha) 1 strip Q6HR 11/10/24 00:00 11/12/24 06:00 1 STRIP Insulin Human Regular FOLLOW SLIDING SCALE Q6HR SC 11/10/24 00:00 Dextrose 50 ml UD IV 11/09/24 22:00 Tamsulosin HCl 0.4 mg QPM PO 11/10/24 18:00 11/11/24 17:20 0.4 MG Finasteride 5 mg DAILY PO 11/11/24 10:00 11/12/24 08:15 5 MG objective HEENT neck supple no JVD. Heart regular rate and rate and rhythm S1 plus S2. Lungs fair removed without wheezing. Abdomen soft nontender. Extremities no edema. laboratory and microbiology Laboratory Tests 11/12/24 05:49 11/10/24 05:08 Test 11/12/24 05:49 Range/Units Serum Glucose 105 74-106 mg/dL Assessment/Plan Waiting for transferred to higher level of care for ERCP procedure. We will start him on full liquid diet. His bilirubin and LFTs slightly improved. We will follow the labs tomorrow. Otherwise further clinical management per clinical course. Discussed with the patient at bedside. Dietary Evaluation Review Recommendations by RD: Increase Calorie Intake, PPN/TPN Comments: Pt meets criteria for Protein-Calorie Malnutrition in the setting of acute illness based on intake <50% Estimated energy req >=5 days, mild fluid accumulation(1+ pitting ankle), and wt loss 2.3kg/2.6% in 3 months. Nutrition recommendation 1) TPN to meet at least 75% estimated needs 2) Monitor lab values, wt trend, I/O Expected Outcomes/Goals: To meet >75% estimated needs GI symptoms to improve. Fu 2-3 days Food and Nutrition Intake (Sev: <50% est energy req 5days Interpretation of weight loss: up to 7.5% in 3 months Fluid Accumulation (Non Severe: Mild fluid retention Protein Calorie Malnutrition: Non-Severe Is there a minimum of two crit: Yes Plan discussed with: Patient RITU BALDWIN MD Nov 12, 2024 14:24
[2024-11-12] MEDS ORDERED: POTASSIUM CHL 20MEQ/100ML 100 ML IV SCH (14:30)
[2024-11-12] MEDS: POTASSIUM CHLORIDE 40 MEQ, LIDOCAINE 1% (LOCAL ANESTH.) 4 ML in SODIUM CHL 0.9% 250 ML IV ONE (16:57)
[2024-11-13 05:00] VITALS: BP 134/86; PULSE 61; RESP 18; TEMP 98; O2SAT 96
[2024-11-13 07:28] LABS: Hematocrit 39.1 % (41.0-53.0); Hemoglobin 13.2 g/dL (13.5-17.5); Mean Corpuscular Hemoglobin 31.2 pg (28.0-32.0); Mean Corpuscular Volume 92.2 fL (80.0-100.0); Nucleated Red Blood Cells % 0.1 %
[2024-11-13 07:38] LABS: Alanine Aminotransferase 214 U/L (7-40); Albumin 3.5 g/dL (3.2-4.8); Alkaline Phosphatase 390 U/L (46-116); Anion Gap 11 (5-15); BUN/Creatinine Ratio 16.2 (10.0-20.0); Blood Urea Nitrogen 11 mg/dL (9-23); Calcium 9.5 mg/dL (8.7-10.4); Carbon Dioxide 25 mmol/L (20-31); Chloride 107 mmol/L (98-107); Glucose 101 mg/dL (74-106); Magnesium 1.8 mg/dL (1.6-2.6); Potassium 2.9 mmol/L (3.5-5.1); Sodium 143 mmol/L (136-145); Total Protein 6.0 g/dL (5.7-8.2)
[2024-11-13 07:44] LABS: Bilirubin, Total 2.2 mg/dL (0.2-1.0)
[2024-11-13 08:00] VITALS: PULSE 62; PULSE 64; RESP 18; O2SAT 97
[2024-11-13 08:30] LABS: Lipase 80 U/L (12-53)
[2024-11-13 09:00] VITALS: BP 111/72; PULSE 62; RESP 18; TEMP 97.8; O2SAT 97
[2024-11-13] MEDS: POTASSIUM CHLORIDE 60 MEQ, LIDOCAINE 1% (LOCAL ANESTH.) 6 ML in SODIUM CHL 0.9% 500 ML IV ONE (12:15)
--- NOTE | 2024-11-13 13:31 | DVHPN2 ---
Progress Note - Dictate Date Seen: Nov 13, 2024 Medical Necessity Reason Pt with a Central, PICC or Fol: No Subjective Clinically stable. Tolerating full liquid diet. No abdominal pain. LFTs are improving. vital signs Vital Sign Date Time Temp Pulse Resp B/P (MAP) Pulse Ox O2 Delivery O2 Flow Rate FiO2 11/13/24 09:00 97.8 62 18 111/72 (85) 97 97.8 11/13/24 08:00 Room Air* 0 21 Total Intake and Output 11/12/24 11/12/24 11/13/24 15:00 23:00 07:00 Intake Total 0 ml 300 ml 100 ml Output Total 425 ml 500 ml Balance 0 ml -125 ml -400 ml medications Current Medications Medications Dose Ordered Sig/Marilyn Route Start Time Stop Time Status Last Admin Dose Admin Acetaminophen/ Hydrocodone Bitart 1 tab Q4HP PRN PO 11/07/24 17:15 Hold Ondansetron HCl 4 mg Q4HP PRN IV 11/07/24 17:15 Acetaminophen 650 mg Q6HP PRN PO 11/07/24 17:15 Hold Morphine Sulfate 2 mg Q4HPRN PRN IV 11/07/24 17:15 11/10/24 23:26 2 MG Nitroglycerin 0.4 mg Q5MINP PRN SL 11/07/24 17:15 Morphine Sulfate 2 mg Q30M PRN IV 11/07/24 17:15 Enoxaparin Sodium 80 mg Q12HR SC 11/07/24 22:00 11/13/24 10:16 80 MG Piperacillin Sod/ Tazobactam Sod 100 ml @ 25 mls/hr Q8H IV 11/08/24 22:00 11/13/24 06:07 25 MLS/HR Atropine Sulfate 0.5 mg Q5MINP PRN IV 11/08/24 20:00 Pantoprazole Sodium 40 mg DAILY IV 11/09/24 10:00 11/13/24 10:16 40 MG Amino Acids 0 ml @ 0 mls/hr PER PHARMACY IV 11/09/24 10:45 Amino Acids/ Electrolytes/ Dextrose 1,000 ml @ 41 mls/hr DAILY@2200 IV 11/09/24 22:00 11/12/24 22:20 41 MLS/HR Diagnostic Test (Pha) 1 strip Q6HR 11/10/24 00:00 11/13/24 05:42 1 STRIP Insulin Human Regular FOLLOW SLIDING SCALE Q6HR SC 11/10/24 00:00 Dextrose 50 ml UD IV 11/09/24 22:00 Tamsulosin HCl 0.4 mg QPM PO 11/10/24 18:00 11/12/24 18:27 0.4 MG Finasteride 5 mg DAILY PO 11/11/24 10:00 11/13/24 10:16 5 MG Magnesium Sulfate/ Dextrose 100 ml @ 100 mls/hr Q1HR IV 11/13/24 12:00 11/13/24 13:59 objective HEENT neck supple no JVD. Heart regular rate and rate and rhythm S1 plus S2. Lungs fair removed without wheezing. Abdomen soft nontender. Extremities no edema. laboratory and microbiology Laboratory Tests 11/13/24 05:17 Test 11/13/24 05:17 Range/Units Serum Glucose 101 74-106 mg/dL Assessment/Plan At present no accepting hospital available. However meantime his LFTs including bilirubin are significantly improved. It is possible the patient may have a CBD sludge and improved. MRCP does not show any obvious CBD stones. We will advance diet as he tolerates. Continue to monitor his LFTs. Continue current antibiotics. Further clinical management will depend on clinical course. At present intolerant appear that patient needs ERCP. However patient tolerated with the benefit from the complete cholecystectomy in the next few weeks. This is discussed with the patient and his along with the nurse at bedside. They have verbalized understanding of this and agree with the current care plan. Problems(with codes): (1) Cholecystitis, acute with cholelithiasis (2) Acute pancreatitis (3) BPH (benign prostatic hyperplasia) (4) Chronic deep vein thrombosis (DVT) of lower leg Dietary Evaluation Review Recommendations by RD: Increase Calorie Intake, PPN/TPN Comments: Pt meets criteria for Protein-Calorie Malnutrition in the setting of acute illness based on intake <50% Estimated energy req >=5 days, mild fluid accumulation(1+ pitting ankle), and wt loss 2.3kg/2.6% in 3 months. Nutrition recommendation 1) TPN to meet at least 75% estimated needs 2) Monitor lab values, wt trend, I/O Expected Outcomes/Goals: To meet >75% estimated needs GI symptoms to improve. Fu 2-3 days Food and Nutrition Intake (Sev: <50% est energy req 5days Interpretation of weight loss: up to 7.5% in 3 months Fluid Accumulation (Non Severe: Mild fluid retention Protein Calorie Malnutrition: Non-Severe Is there a minimum of two crit: Yes Plan discussed with: Patient, Spouse RITU BALDWIN MD Nov 13, 2024 13:31
[2024-11-13] MEDS: MAGNESIUM SULFATE 1GM/100ML 100 ML IV SCH (14:03)
--- NOTE | 2024-11-13 14:14 | DVHPN2 ---
Consult Progress Note Date Seen: Nov 13, 2024 Subjective Review of Systems: CVS:Normal, RESPIRATORY:Normal, NEURO:Normal Objective vital signs Vital Sign Date Time Temp Pulse Resp B/P (MAP) Pulse Ox O2 Delivery O2 Flow Rate FiO2 11/13/24 09:00 97.8 62 18 111/72 (85) 97 97.8 11/13/24 08:00 Room Air* 0 21 Total Intake and Output 11/12/24 11/12/24 11/13/24 15:00 23:00 07:00 Intake Total 0 ml 300 ml 100 ml Output Total 425 ml 500 ml Balance 0 ml -125 ml -400 ml medications Current Medications Medications Dose Ordered Sig/Marilyn Route Start Time Stop Time Status Last Admin Dose Admin Acetaminophen/ Hydrocodone Bitart 1 tab Q4HP PRN PO 11/07/24 17:15 Hold Ondansetron HCl 4 mg Q4HP PRN IV 11/07/24 17:15 Acetaminophen 650 mg Q6HP PRN PO 11/07/24 17:15 Hold Morphine Sulfate 2 mg Q4HPRN PRN IV 11/07/24 17:15 11/10/24 23:26 2 MG Nitroglycerin 0.4 mg Q5MINP PRN SL 11/07/24 17:15 Morphine Sulfate 2 mg Q30M PRN IV 11/07/24 17:15 Enoxaparin Sodium 80 mg Q12HR SC 11/07/24 22:00 11/13/24 10:16 80 MG Piperacillin Sod/ Tazobactam Sod 100 ml @ 25 mls/hr Q8H IV 11/08/24 22:00 11/13/24 06:07 25 MLS/HR Atropine Sulfate 0.5 mg Q5MINP PRN IV 11/08/24 20:00 Pantoprazole Sodium 40 mg DAILY IV 11/09/24 10:00 11/13/24 10:16 40 MG Amino Acids 0 ml @ 0 mls/hr PER PHARMACY IV 11/09/24 10:45 Amino Acids/ Electrolytes/ Dextrose 1,000 ml @ 41 mls/hr DAILY@2200 IV 11/09/24 22:00 11/12/24 22:20 41 MLS/HR Diagnostic Test (Pha) 1 strip Q6HR 11/10/24 00:00 11/13/24 05:42 1 STRIP Insulin Human Regular FOLLOW SLIDING SCALE Q6HR SC 11/10/24 00:00 Dextrose 50 ml UD IV 11/09/24 22:00 Tamsulosin HCl 0.4 mg QPM PO 11/10/24 18:00 11/12/24 18:27 0.4 MG Finasteride 5 mg DAILY PO 11/11/24 10:00 11/13/24 10:16 5 MG Examination: LUNGS:Normal, CVS:Normal, NEURO:Normal laboratory and microbiology Laboratory Tests 11/13/24 05:17 Test 11/13/24 05:17 Range/Units Serum Glucose 101 74-106 mg/dL Problem List/Assessment/Plan Problem List/Assessment/Plan Sinus bradycardia with intermittent high-degree atrioventricular block status post PPM implantation Hx of RLE DVT, on Eliquis therapy Suspected gallstone pancreatitis Benign prostatic hyperplasia Hard of hearing Plan/Recommendation (Dr. Hill) Intermittent high-degree atrioventricular block status post dual-chamber pacemaker implantation with Biotronik. Latest interrogation revealed a normal functioning device. CXR negative for acute pathology with intact leads on image. Transthoracic echocardiogram revealed an LVEF of 65% with normal valves and RV function. Patient is stable for transfer. Awaiting transferred to the [facility] for possible ERCP. There is no further cardiac work-up indicated at this time. Kindly call with any questions or concerns. Thank you for allowing us to participate in this patient's care. This medical document was created using an electronic medical record system with voice recognition software and computerized dictation system. Although this document has been carefully reviewed, there might still be some phonetic and typographical errors. Occasional wrong-word or ``sound-alike substitutions may have occurred due to the inherent limitations of voice recognition software. These areas are purely typographical due to imperfections of the software programs and do not reflect any compromise in the patient's medical care. Please read the chart carefully and recognize, using context, where these substitutions have occurred. Plan discussed with: Patient, Other Dietary Evaluation Review Recommendations by RD: Increase Calorie Intake, PPN/TPN Comments: Pt meets criteria for Protein-Calorie Malnutrition in the setting of acute illness based on intake <50% Estimated energy req >=5 days, mild fluid accumulation(1+ pitting ankle), and wt loss 2.3kg/2.6% in 3 months. Nutrition recommendation 1) TPN to meet at least 75% estimated needs 2) Monitor lab values, wt trend, I/O Expected Outcomes/Goals: To meet >75% estimated needs GI symptoms to improve. Fu 2-3 days Food and Nutrition Intake (Sev: <50% est energy req 5days Interpretation of weight loss: up to 7.5% in 3 months Fluid Accumulation (Non Severe: Mild fluid retention Protein Calorie Malnutrition: Non-Severe Is there a minimum of two crit: Yes Date of Service: Nov 13, 2024 Billing Provider: ANALILIA RIOS Cardiology Common Codes: [id number] INP/OBS CARE(Mod) ANALILIA RIOS Nov 13, 2024 14:14
[2024-11-13 17:14] VITALS: BP 126/85; PULSE 61; RESP 18; TEMP 97.6; O2SAT 98
[2024-11-13 20:00] VITALS: PULSE 63
[2024-11-13 21:00] VITALS: BP 118/81; PULSE 61; RESP 16; TEMP 98.8; O2SAT 96
[2024-11-14] VITALS (7 sets, daily range): BP systolic 95–141; BP diastolic 64–90; PULSE 60–78; RESP 16–20; TEMP 97.3–99.5; O2SAT 96–99
[2024-11-14 06:26] LABS: Anion Gap 8 (5-15); BUN/Creatinine Ratio 12.0 (10.0-20.0); Blood Urea Nitrogen 9 mg/dL (9-23); Calcium 8.9 mg/dL (8.7-10.4); Carbon Dioxide 25 mmol/L (20-31); Glucose 98 mg/dL (74-106); Magnesium 1.9 mg/dL (1.6-2.6); Sodium 143 mmol/L (136-145); Total Protein 5.9 g/dL (5.7-8.2)
[2024-11-14 06:27] LABS: Albumin 3.5 g/dL (3.2-4.8)
[2024-11-14 06:40] LABS: Alanine Aminotransferase 215 U/L (7-40); Alkaline Phosphatase 359 U/L (46-116); Bilirubin, Total 1.7 mg/dL (0.2-1.0); Chloride 110 mmol/L (98-107); Potassium 3.4 mmol/L (3.5-5.1)
--- NOTE | 2024-11-14 07:50 | ECG ---
[facility] Test Date: 2024-11-10 Test Time: 13:04:19 Pat Name: DEBORAH RAMIREZ Department: Room: 0286T A Gender: M Efficiency Miner: CHRISTINA : 1945 Requested By: RITU BALDWIN Order Number: [id number] Reading MD: Measurements Intervals [place] Rate: 67 P: 0 HI: 0 QRS: -60 QRSD: 190 T: 99 QT: 502 QTc: 530 Interpretive Statements Demand pacemaker, interpretation is based on intrinsic rhythm Undetermined rhythm Left axis deviation Left ventricular hypertrophy with QRS widening and repolarization abnormality Possible Lateral infarct , age undetermined Inferior infarct , age undetermined Please click the below link to view image of tracing.
--- NOTE | 2024-11-14 07:50 | ECG ---
[facility] Test Date: 2024-11-10 Test Time: 13:05:52 Pat Name: DEBORAH RAMIREZ Department: Room: 0286T A Gender: M Direct Support Professional Caregiver: CHRISTINA : 1945 Requested By: AJIT WAGONER Order Number: [id number] Reading MD: Measurements Intervals [place] Rate: 61 P: 46 MN: 178 QRS: -57 QRSD: 192 T: 95 QT: 504 QTc: 507 Interpretive Statements Sinus rhythm with premature atrial complexes Left axis deviation Left bundle branch block Please click the below link to view image of tracing.
[2024-11-14] MEDS ORDERED: HYDROcodone-ACET 5/325MG TAB PO PRN (12:15)
[2024-11-14] MEDS: POTASSIUM PHOSPHATE 22 MEQ in SODIUM CHL 0.9% 100 ML IV ONE (13:29)
--- NOTE | 2024-11-14 16:01 | DVHPN2 ---
Progress Note - Dictate Date Seen: Nov 14, 2024 Medical Necessity Reason Pt with a Central, PICC or Fol: No Subjective Clinically stable. Tolerating soft diet. LFTs are improving. No abdominal pain nausea or vomiting. vital signs Vital Sign Date Time Temp Pulse Resp B/P (MAP) Pulse Ox O2 Delivery O2 Flow Rate FiO2 11/14/24 13:00 97.7 65 16 95/64 (74) 98 97.7 11/14/24 08:00 Room Air* 0 21 Total Intake and Output 11/13/24 11/13/24 11/14/24 15:00 23:00 07:00 Intake Total 100 ml 380 ml 600 ml Output Total 400 ml 900 ml Balance 100 ml -20 ml -300 ml medications Current Medications Medications Dose Ordered Sig/Marilyn Route Start Time Stop Time Status Last Admin Dose Admin Ondansetron HCl 4 mg Q4HP PRN IV 11/07/24 17:15 Morphine Sulfate 2 mg Q4HPRN PRN IV 11/07/24 17:15 11/10/24 23:26 2 MG Nitroglycerin 0.4 mg Q5MINP PRN SL 11/07/24 17:15 Morphine Sulfate 2 mg Q30M PRN IV 11/07/24 17:15 Atropine Sulfate 0.5 mg Q5MINP PRN IV 11/08/24 20:00 Pantoprazole Sodium 40 mg DAILY IV 11/09/24 10:00 11/14/24 08:44 40 MG Amino Acids/ Electrolytes/ Dextrose 1,000 ml @ 41 mls/hr DAILY@2200 IV 11/09/24 22:00 11/13/24 00:52 41 MLS/HR Diagnostic Test (Pha) 1 strip Q6HR 11/10/24 00:00 11/14/24 12:05 1 STRIP Insulin Human Regular FOLLOW SLIDING SCALE Q6HR SC 11/10/24 00:00 Dextrose 50 ml UD IV 11/09/24 22:00 Tamsulosin HCl 0.4 mg QPM PO 11/10/24 18:00 11/13/24 17:51 0.4 MG Finasteride 5 mg DAILY PO 11/11/24 10:00 11/14/24 08:44 5 MG Acetaminophen/ Hydrocodone Bitart 1 tab Q4HP PRN PO 11/14/24 12:15 Apixaban 5 mg BID PO 11/14/24 22:00 objective HEENT neck supple no JVD. Heart regular rate and rate and rhythm S1 plus S2. Lungs fair removed without wheezing. Abdomen soft nontender. Extremities no edema. laboratory and microbiology Laboratory Tests 11/14/24 05:25 11/13/24 05:17 Test 11/14/24 05:25 Range/Units Serum Glucose 98 74-106 mg/dL Assessment/Plan Given his clinical improvement we will continue diet and DC IV fluids and antibiotics and IV nutrition. Encourage a DVT. We will DC the Lovenox and resume Eliquis. If he remains stable overnight discharge plan to home tomorrow and outpatient follow up with the his general surgeon next week for elective total cholecystectomy. Discussed with the patient. Problems(with codes): (1) Status post placement of cardiac pacemaker (2) Chronic deep vein thrombosis (DVT) of lower leg (3) BPH (benign prostatic hyperplasia) (4) Gallbladder disease (5) Acute pancreatitis Dietary Evaluation Review Recommendations by RD: Increase Calorie Intake, PPN/TPN Comments: Pt meets criteria for Protein-Calorie Malnutrition in the setting of acute illness based on intake <50% Estimated energy req >=5 days, mild fluid accumulation(1+ pitting ankle), and wt loss 2.3kg/2.6% in 3 months. Nutrition recommendation 1) TPN to meet at least 75% estimated needs 2) Monitor lab values, wt trend, I/O Expected Outcomes/Goals: To meet >75% estimated needs GI symptoms to improve. Fu 2-3 days Food and Nutrition Intake (Sev: <50% est energy req 5days Interpretation of weight loss: up to 7.5% in 3 months Fluid Accumulation (Non Severe: Mild fluid retention Protein Calorie Malnutrition: Non-Severe Is there a minimum of two crit: Yes Plan discussed with: Patient RITU BALDWIN MD Nov 14, 2024 16:01
[2024-11-14] MEDS: APIXABAN 5 MG TAB PO SCH (21:22)
[2024-11-15 01:00] VITALS: BP 125/81; PULSE 69; RESP 16; TEMP 97.2; O2SAT 98
[2024-11-15 05:00] VITALS: BP 109/68; PULSE 67; RESP 16; TEMP 98.9; O2SAT 98
[2024-11-15 05:32] LABS: Hematocrit 36.8 % (41.0-53.0); Hemoglobin 12.4 g/dL (13.5-17.5); Mean Corpuscular Hemoglobin 31.1 pg (28.0-32.0); Mean Corpuscular Volume 92.0 fL (80.0-100.0); Nucleated Red Blood Cells % 0.1 %
[2024-11-15 05:56] LABS: Albumin 3.4 g/dL (3.2-4.8); Anion Gap 10 (5-15); BUN/Creatinine Ratio 12.3 (10.0-20.0); Blood Urea Nitrogen 10 mg/dL (9-23); Calcium 9.5 mg/dL (8.7-10.4); Carbon Dioxide 23 mmol/L (20-31); Glucose 104 mg/dL (74-106); Magnesium 1.9 mg/dL (1.6-2.6); Potassium 3.7 mmol/L (3.5-5.1); Sodium 143 mmol/L (136-145); Total Protein 5.8 g/dL (5.7-8.2); Triglycerides 119 mg/dL (< 150)
[2024-11-15 06:04] LABS: Alanine Aminotransferase 194 U/L (7-40); Alkaline Phosphatase 353 U/L (46-116); Bilirubin, Total 1.3 mg/dL (0.2-1.0); Chloride 110 mmol/L (98-107)
[2024-11-15 08:00] VITALS: PULSE 60; PULSE 85; RESP 18; O2SAT 96
[2024-11-15 09:00] VITALS: BP 121/76; PULSE 63; RESP 16; TEMP 97.9; O2SAT 97
--- NOTE | 2024-11-15 12:35 | DVHDS2 ---
Discharge Summary Date of Admission Nov 07, 2024 at 17:06 Date of Discharge: Nov 15, 2024 Admitting Diagnosis Abdominal pain Labs/Diagnostic Data: Laboratory Results Test 11/15/24 04:53 11/14/24 17:59 11/13/24 05:17 11/11/24 15:15 White Blood Count 6.1 10^3/uL (4.4-10.8) Red Blood Count 4.00 10^6/uL (4.5-5.90) Hemoglobin 12.4 g/dL (13.5-17.5) Hematocrit 36.8 % (41.0-53.0) Mean Corpuscular Volume 92.0 fL (80.0-100.0) Mean Corpuscular Hemoglobin 31.1 pg (28.0-32.0) Mean Corpuscular Hemoglobin Concent 33.8 g/dL (32.0-36.0) Red Cell Distribution Width 15.9 % (11.8-14.3) Platelet Count 221 10^3/uL (140-450) Mean Platelet Volume 8.4 fL (6.9-10.8) Neutrophils (%) (Auto) 52.9 % (37.0-80.0) Lymphocytes (%) (Auto) 30.0 % (10.0-50.0) Monocytes (%) (Auto) 11.1 % (0.0-12.0) Eosinophils (%) (Auto) 5.3 % (0.0-7.0) Basophils (%) (Auto) 0.7 % (0.0-2.0) Neutrophils # (Auto) 3.2 10 ^3/uL (1.6-8.6) Lymphocytes # (Auto) 1.8 10 ^3/uL (0.4-5.4) Monocytes # (Auto) 0.7 10 ^3/uL (0-1.3) Eosinophils # (Auto) 0.3 10 ^3/uL (0-0.8) Basophils # (Auto) 0 10 ^3/uL (0-0.2) Nucleated Red Blood Cells 0.1 % Sodium Level 143 mmol/L (136-145) Potassium Level 3.7 mmol/L (3.5-5.1) Chloride Level 110 mmol/L (98-107) Carbon Dioxide Level 23 mmol/L (20-31) Anion Gap 10 (5-15) Blood Urea Nitrogen 10 mg/dL (9-23) Creatinine 0.81 mg/dL (0.700-1.30) Glomerular Filtration Rate Calc 90 mL/min (>90) BUN/Creatinine Ratio 12.3 (10.0-20.0) Serum Glucose 104 mg/dL (74-106) Calcium Level 9.5 mg/dL (8.7-10.4) Phosphorus Level 2.9 mg/dL (2.4-5.1) Magnesium Level 1.9 mg/dL (1.6-2.6) Total Bilirubin 1.3 mg/dL (0.2-1.0) Aspartate Amino Transferase (AST) 130 U/L (13-40) Alanine Aminotransferase (ALT) 194 U/L (7-40) Alkaline Phosphatase 353 U/L (46-116) Total Protein 5.8 g/dL (5.7-8.2) Albumin 3.4 g/dL (3.2-4.8) Triglycerides Level 119 mg/dL (< 150) POC Glucose 87 mg/dl (70-106) Lipase 80 U/L (12-53) SARS-CoV-2 Antigen (Rapid) Negative (NEGATIVE) Test 11/10/24 09:02 11/09/24 15:35 11/09/24 05:08 11/08/24 05:29 Prothrombin Time 11.5 sec (9.3-11.8) Prothrombin Time INR 1.09 (0.9-1.15) Activated Partial Thromboplast Time 31.0 SEC (24.5-34.5) Lactic Acid Level 1.0 mmol/L (0.4-2.0) Amylase Level 87 U/L (30-118) Hemoglobin A1c 5.0 % A1C (<5.7) B-Type Natriuretic Peptide 99.93 pg/mL (0-100) Cholesterol Level 150 mg/dL (< 200) LDL Cholesterol 50 mg/dL (< 100) HDL Cholesterol 77 mg/dL (40-59) Thyroid Stimulating Hormone (TSH) 1.04 uIU/mL (0.55-4.78) Test 11/07/24 10:17 Urine Color Yellow (Yellow) Urine Clarity Clear (Clear) Urine pH 5.0 (5.0-9.0) Urine Specific [place] 1.027 (1.001-1.035) Urine Protein Negative (Negative) Urine Ketones 2+ (Negative) Urine Blood Negative /uL (Negative) Urine Nitrite Negative (Negative) Urine Bilirubin Negative (Negative) Urine Urobilinogen Normal mg/dL (Negative) Urine Leukocyte Esterase Negative /uL (Negative) Urine RBC 2 /hpf (0 - 3) Urine Microscopic WBC 1 /HPF (0-3) Urine Squamous Epithelial Cells Few /hpf (<5) Urine Bacteria None seen /hpf (None Seen) Urine Hyaline Casts Few /lpf (0 - 2) Urine Mucus Few (None Seen) Urine Glucose Normal mg/dL (Normal) Other Laboratory Tests 11/15/24 04:53 Brief Hx & Hospital Course: 79-year-old male with a known history of right lower extremity DVT currently on Eliquis last dose was yesterday evening, previous history of subtotal cholecystectomy, previous history of abdominal surgeries presented to the hospital with epigastric pain nausea and vomiting for last two days. Patient was found to have acute gallstone induced pancreatitis. Patient is currently complaining of minimal epigastric pain with the nausea denies any vomiting. Patient admitted and evaluated by Cardiology and Gastroenterology. Patient also seen by General surgery. Initially it was felt patient possible as common bile duct stones. However his MRCP did not show any CBD stones. Surgeon felt elevated bilirubin possibly secondary to chronic inflammation. Patient had a prior partial cholecystectomy around unable to have complete cholecystectomy due to significant adhesions. While in the hospital the plan was to transfer him to higher level of care however there was no beds available. Meantime his liver function tests including bilirubin have significantly improved and back to normal baseline status. It is felt patient either probably has a gallbladder common bile duct sludge and may have improved. He is tolerating low-fat low- cholesterol diet without any abdominal pain nausea or vomiting. Patient resumed back on his Eliquis for chronic leg DVT. I have talked with the patient and his on multiple occasions during this hospitalization regarding his hospital diagnosis, hospital care and given his symptoms improved he is felt he could be safely discharged home. However I told them that patient needs to have a close follow up with Dr. Arsalan Woodard his general surgeon in 1-2 weeks to consider complete cholecystectomy. I have also advised him to avoid fatty greasy foods. He has verbalized understanding of this and agree with the discharge care plan as outlined. Consults/Reason for consult APPROVED REPORT EXAM: Two-dimensional and M-mode echocardiogram with Doppler and color Doppler. Blood Pressure: 138/66 mmHg INDICATION High degree AV block RISK FACTORS Height: 5'10", Weight: 189 DIMENSIONS LVDd 5.7 (3.8-5.7cm) LA (2D) 3.9 (1.9-4.0cm) Aortic Root 3.0 (2.0- 3.7cm) LVDs 3.2 (2.5-4.0cm) LA (MM) (1.9-4.0cm) Aortic Cusp Exc 2.0 (1.5- 2.0cm) EF (%) 70.0 (55-70%) Rt. Atrium 4.0 (1.9-4.0cm) Asc. Aorta 3.4 cm IVSd 0.7 (0.7-1.1cm) RV (D) 3.8 (1.8-2.4cm) PWd 0.7 (0.7-1.1cm) Mitral Valve Mitral Mitral Stenosis E wave 0.79m/s MV Mean GR. mmHg A wave 0.65m/s MV Peak GR. mmHg E/A ratio 1.2 2D MVA cm2 DECEL Time 146ms PRESS 1/2 Time ms Aortic Valve Aortic Valve Aortic Stenosis V1 1.45m/s AO Mean GR. 3mmHg V2 1.37m/s AO Peak GR. 8mmHg LVOT Diameter 2.3 (1.8-2.4cm) Doppler [place] 4.40cm2 Pulmonic Valve V2 1.17m/s Tricuspid Valve TR Velocity 2.10m/s RVSP 21mmHg Conclusion NORMAL LV EF AND IS 65% NORMAL VALVES NORMAL RV FUNCTION NO EFFUSION NORMAL RV SP SIGNED BY: BRUNO WOODARD MD SIGNED DATE/TIME: 11/12/24 0027 Operations or Procedures ORDER NUMBER(s): [id number], ACCESSION NUMBER(s): [id number] MRI ABDOMEN TO INCLUDE MRCP WITHOUT CONTRAST: HISTORY: Rule out choledocholithiasis. COMPARISON: MRI MRCP MRI on DOS: 08/02/24 CONTRAST: None. TECHNIQUE: Multiplanar multi sequence MRI performed of the upper abdomen. MRCP sequences performed.3-D MRCP sequence generated at the scanner console from the source data. FINDINGS: Sensitivity and specificity are diminished in the absence of intravenous contrast. Trace right pleural effusions. Limited evaluation of the T2 MIPS in the setting of motion. There are numerous layering gallstones with associated gallbladder wall thickening in and adjacent inflammatory change. No biliary ductal dilation within the limits of motion and periportal edema. No filling defects within the common bile duct. There is inflammatory change surrounding the pancreatic head and 2nd portion of the duodenum with fluid and inflammatory change tracking along the right retroperitoneum. Pancreatic duct is within normal limits. The spleen kidneys, and adrenal glands are unremarkable. The abdominal area is normal caliber. The imaged ball is unremarkable. Status post posterior screw fixation of L3-L5. There is trace perihepatic and perisplenic ascites. The liver is normal in size. There is periportal edema. IMPRESSION: 1. Calculus cholecystitis 2. No evidence of choledocholithiasis 3. Findings suspicious for groove pancreatitis 4. Trace ascites and effusions 5. Periportal edema which may be related to patients volume status ATED BY: TARA LEHMAN MD DICTATED DATE/TIME: 11/08/24 0929 Operative Report - 2 Report Details Date: 11/10/24 Preop Diagnosis: Complete heart block Postop Diagnosis: Complete heart block Surgeon: Ahsan Hill MD Anesthesiologist: Conscious sedation Anesthesia: Mac, Local Consent: The patient was informed of the risks and benefits of the procedure. These include but are not limited to complications of anesthesia, postoperative infection, incomplete relief of symptoms, recurrence of symptoms, damage to blood vessels, nerves and tendons, deep venous thrombosis, pulmonary embolism and possible need for repeat surgery in the future. Complications: No complications Findings: Complete heart block Indications for Surgery: Complete heart block Name of Procedure Performed Permanent pacemaker implantation. Dual-chamber device placement. Procedure Details Procedure Details: Prior local anesthesia with 2% lidocaine to the left pectoral area and full informed consent obtained the patient was prepped and draped in usual fashion followed by an incision over the left pectoral area and dissection planes with the electrocautery and blunt dissection. A pocket was formed into the pectoral fascia and flushed with antibiotic solution packed with an antibiotic filled Ray-Jb sponge. We then inserted a cook needle into the subclavian vein under fluoroscopic guidance post acquisition of venogram. A nine [place]i sheath was advanced. Peel-away sheaths were used to place active fixation electrodes into the RV apex and right atrial appendage successfully. These were sutured with 0 Ethibond. After adequate capture and sensitivity thresholds were obtained the sheaths were removed and leads were sutured with 0 Ethibond. After the pocket was flushed in the Ray-Jb sponge removed we connected the generator and the leads were inserted and secured successfully. These with the sutured with 0 Ethibond as well. Adequate capture and sensitivity thresholds were obtained. The right ventricular lead is a model number 388105. It is a solia S 60, serial number [id number], this is by [employer]. Implanted right atrial lead is a model 853348, solia S 53 by [employer]. Serial number [id number]. There was a R-wave of 12 at 0.5 volts 0.4 milliseconds and 585 Ohms. There was a P-wave of 2.4 at point 8 volts 0.4 milliseconds on 525 Ohms of impedance. The implanted pacer device is a model 444463, AMVIA edge DRT-T, serial [id number] by [employer]. THE MOOD SAID IS DDD/CLS AT A LOWER RATE OF 65 UPPER RATE OF 130. THERE WAS AN AV DELAY OF 190/160 MILLISECONDS WITH A PV AERP OF 275 MILLISECONDS, RA SENSITIVITY OF 0.5 MV. AUTO RV SENSITIVITY, 2.0 MV. AUTO RA OUTPUT AT 4.0 MV/0.4 MILLISECONDS. RV OUTPUT 4.0 VOLTS AT 0.4 MILLISECONDS. A CHEST X-RAY WAS ORDERED FOR EVALUATION OF PLACEMENT. Impression: Successful placement of dual-chamber pacemaker for the indication of complete heart block. Recommendations: Continue medical therapy. Risk factor modification to continue. Condition Good Condition at Discharge: Stable Final Diagnosis/Problems List Acute pancreatitis suspected gallstone induced Acute cholecystitis Transaminitis with elevated T bili and alkaline phosphatase rule out choledocholithiasis by false negative MRCP Discharge Disposition: Home Discharge Instruct/Medications Diet: See Comment Diet comment: Low-fat low-cholesterol diet mostly green any leaves and vegetables as well as fish. Avoid any red meat or fatty foods. Activity: Bed rest Follow Up/Referral: Your surgeon Dr. Arsalan Woodard after 11/20/2024 and his office for further evaluation and to consider gallbladder surgery Medications: as reconciled Continued Medications: Apixaban Base (Eliquis) 5 Mg Tab 5 MG PO BID, #120 TAB Take 2 tablets (10mg) twice a day for fisrt 10 days then take 1 tablet (5mg) twice a day Finasteride (Finasteride) 5 Mg Tab 5 MG PO, TAB Hydrocodone-Acetaminophen (Hydrocodone Bitartrate/AC 5-325 mg) 1 Tab Tab 1 TAB PO Q6HPRN PRN, #14 TAB Lactulose (Lactulose) 10 Gm/15 Ml Adali 20 GM PO Q8HPRN PRN, #240 ML Naloxone HCl (Narcan) 4 Mg/0.1 Ml Spr 4 MG NA Q5MP PRN, #1 SPRAY Tamsulosin Hcl (Tamsulosin Hcl) 0.4 Mg Cap 0.4 MG PO, CAP Discontinued Medications: Cefdinir (Cefdinir) 300 Mg Cap 1 CAP PO BID, #10 CAP Scheduled Apixaban Base (Eliquis), 5 MG PO BID Scheduled PRN Hydrocodone-Acetaminophen (Hydrocodone Bitartrate/AC 5-325 mg), 1 TAB PO Q6HPRN PRN Lactulose (Lactulose), 20 GM PO Q8HPRN PRN Naloxone HCl (Narcan), 4 MG NA Q5MP PRN Miscellaneous Medications Finasteride (Finasteride), 5 MG PO, (Reported) Tamsulosin Hcl (Tamsulosin Hcl), 0.4 MG PO, (Reported) Discontinued Medications Cefdinir (Cefdinir), 1 CAP PO BID Discharge Statement: "Patient was advised to return to the ER or call 911 if any headaches, dizziness, shortness of breath, chest pain, abdominal pain, bleeding, fevers, or worsening of medical condition. Patient was counseled about treatment plan, medications, possible side effects, patientverbalized understanding. All questions were answered to the best of my ability. This discharge took greater then 30 minutes in planning, reviewing documentation, counseling the patient, and discussing with other team members." ASSESSMENT ASSESSMENT Assessment Acute pancreatitis suspected gallstone induced Acute cholecystitis Transaminitis with elevated T bili and alkaline phosphatase rule out choledocholithiasis by false negative MRCP RITU BALDWIN MD Nov 15, 2024 12:35
[2024-11-15 13:00] VITALS: BP 107/73; PULSE 68; RESP 18; TEMP 97.8; O2SAT 96
== END 2024-11-15 13:45 | disposition home or self-care (01) | DRG 242 ==
LOC: ER 10:06 → OVERFLOW 17:06 → TELE-WESTW 22:00
PROVIDERS: ADMIT Internal Medicine; ATTEND Internal Medicine
PROC: 0JH606Z Insertion of Pacemaker, Dual Chamber into Chest Subcutaneous Tissue and Fascia, Open Approach (ICD-10-PCS; principal; 2024-11-10)
PROC: 02H63JZ Insertion of Pacemaker Lead into Right Atrium, Percutaneous Approach (ICD-10-PCS; 2024-11-10)
PROC: 02HK3JZ Insertion of Pacemaker Lead into Right Ventricle, Percutaneous Approach (ICD-10-PCS; 2024-11-10)
PROC: B517YZZ Fluoroscopy of Left Subclavian Vein using Other Contrast (ICD-10-PCS; 2024-11-10)
DX: I44.2 Atrioventricular block, complete (principal); K85.90 Acute pancreatitis without necrosis or infection, unspecified; E46 Unspecified protein-calorie malnutrition; I82.411 Acute embolism and thrombosis of right femoral vein; I82.431 Acute embolism and thrombosis of right popliteal vein; K80.00 Calculus of gallbladder with acute cholecystitis without obstruction; N40.0 Benign prostatic hyperplasia without lower urinary tract symptoms; Z90.49 Acquired absence of other specified parts of digestive tract; Z79.01 Long term (current) use of anticoagulants; Z79.899 Other long term (current) drug therapy; Z82.0 Family history of epilepsy and other diseases of the nervous system; Z96.653 Presence of artificial knee joint, bilateral; Z86.718 Personal history of other venous thrombosis and embolism; Z79.2 Long term (current) use of antibiotics; Z68.26 Body mass index [BMI] 26.0-26.9, adult
CPT/HCPCS: 33208; 36415; 71045; 74176; 74181; 76705; 80053; 80061; 81001; 82150; 82962; 83036; 83605; 83690; 83735; 83880; 84100; 84443; 84478; 85025; 85610; 85730; 87426; 93005; 93306; 93971; 96361; 96374; 99152; G0378; J0461; J2003; J2250; J2470; J2543; J3480; Q9967